=== PATIENT | male | born 1980 | race Two or more races ===

== ENCOUNTER 2020-05-15 05:04 | Emergency (ER) | payer OTHER, SELFPAY ==
--- NOTE | 2020-05-15 07:43 | PC.NURSE ---
DOCUMENTATION ON DOWNTIME CHART
== END 2020-05-15 05:35 | disposition home or self-care (01) ==
PROVIDERS: Emergency Provider Student in an Organized Health Care Education/Training Program
DX: R30.0 Dysuria (principal)
CPT/HCPCS: 99283

== ENCOUNTER 2021-06-09 08:52 | Outpatient (REF) | payer OTHER, SELFPAY ==
--- NOTE | ~2021-06-09 | XR_ITS ---
EXAMINATION: XR LUMBOSACRAL SPINE CLINICAL INFORMATION: Low back pain. COMPARISON: Radiographs of the lumbar spine dated from 09/17/2018. TECHNIQUE: Three views of the lumbosacral spine. FINDINGS: The vertebral bodies and posterior elements are normal. The disc spaces are preserved and the vertebral alignment is normal. The paraspinal soft tissues are normal. XR/XR lumbar spine 2-3V IMPRESSION: Normal lumbar spine radiographs.
[2021-06-09 09:43] LABS: Hematocrit 44.4 % (42.0-52.0); Hemoglobin 14.7 g/dl (14.0-18.0); Mean Corpuscular HGB Conc 33.1 g/dl (31.0-36.0); Mean Corpuscular Hemoglobin 31.2 pg (27.0-33.0); Mean Corpuscular Volume 94.3 fL (80.0-98.0); Mean Platelet Volume 9.4 fL (9.4-12.4); Platelet Count 195 X10*3/uL (160-400); Red Blood Count 4.71 X10*6/uL (4.60-5.80); Red Cell Distribution Width 13.3 % (11.0-16.0); White Blood Count 3.5 X10*3/uL (4.8-10.8)
[2021-06-09 09:52] LABS: Estimated Average Glucose 103 mg/dL; Hemoglobin A1c % 5.2 %
[2021-06-09 10:27] LABS: Alanine Aminotransferase 19 U/L (0-40); Alkaline Phosphatase 60 U/L (39-117); Anion Gap 10 (12-20); Aspartate Amino Transferase 22 U/L (5-37); Bilirubin Direct 0.6 mg/dL (0.0-0.5); Bilirubin Total 2.5 mg/dL (0.0-1.0); Blood Urea Nitrogen 13 mg/dL (9-16); Calcium 9.2 mg/dL (8.4-10.2); Carbon Dioxide 31 mmol/L (22-29); Chloride 102 mmol/L (96-108); Cholesterol 131 mg/dL; Estimated Glomerular Filt Rate > 60; Glucose Random 97 mg/dL (60-115); HDL Cholesterol 57 mg/dL; LDL Cholesterol Calculated 65 mg/dl; Sodium 139 mmol/L (135-145); Total Protein 6.7 g/dL (6.5-8.0); Triglycerides 48 mg/dL
[2021-06-09 10:29] LABS: ~HepC Num1 0.08 S/CO (0.00-0.79); ~Hepatitis C Antibody Nonreactive (Nonreactive)
[2021-06-09 10:32] LABS: HBS Num1 0.67 mIU/mL (0-7.99); HIV AB/AG Nonreactive (Nonreactive); HIV Num 1 0.09 S/CO (0.00-0.99); ~Hepatitis B Surface Antibody NONREACTIVE (Nonreactive)
[2021-06-09 10:44] LABS: Syphilis Screen Nonreactive (Nonreactive)
[2021-06-09 10:48] LABS: Free T4 (Free Thyroxine) 0.79 ng/dL (0.71-1.85); Thyroid Stimulating Hormone 1.02 uIU/mL (0.32-4.0)
[2021-06-09 11:42] LABS: CT PCR NOT DETECTED (Not Detect.); NG PCR NOT DETECTED (Not Detect.)
[2021-06-11 07:46] LABS: Hepatitis A Antibody IgG Nonreactive (Nonreactive); ~Hepatitis A Antibody IgG 0.24 S/CO (0.00-0.99)
== END 2021-06-09 08:53 | disposition home or self-care (01) ==
LOC: HO.LAB 08:52
PROVIDERS: PCP Family Medicine; Visit Provider Family Medicine
DX: Z00.00 Encounter for general adult medical examination without abnormal findings (principal); I77.810 Thoracic aortic ectasia; M54.50 Low back pain, unspecified
CPT/HCPCS: 72100; 80048; 80061; 80076; 82306; 83036; 84439; 84443; 85027; 86706; 86708; 86780; 86803; 87389; 87491; 87591

== ENCOUNTER 2021-06-16 12:57 | Outpatient (REF) | payer OTHER, SELFPAY | END 2021-06-16 12:58 | disposition home or self-care (01) | LOC: HO.LAB 12:57 | PROVIDERS: Visit Provider Internal Medicine | DX: Z13.89 Encounter for screening for other disorder (principal) ==

== ENCOUNTER 2021-06-17 11:00 | Outpatient (REF) | payer OTHER, SELFPAY ==
[2021-06-17 11:40] LABS: COVID-19 Test Positive (Negative)
== END 2021-06-17 11:01 | disposition home or self-care (01) ==
LOC: HO.LAB 11:00
PROVIDERS: Visit Provider Internal Medicine
DX: Z20.822 Contact with and (suspected) exposure to COVID-19 (principal)
CPT/HCPCS: 87635; C9803

== ENCOUNTER 2021-06-28 14:37 | Emergency (ER) | payer OTHER, SELFPAY ==
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
[2021-06-28 15:02] VITALS: BP 140/80; PULSE 86; O2SAT 98
[2021-06-28 15:26] VITALS: BP 144/86; PULSE 81; RESP 16; TEMP 37; O2SAT 97; BMI 20.5
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
== END 2021-06-28 17:17 | disposition home or self-care (01) ==
PROVIDERS: Emergency Provider Emergency Medicine
DX: S39.012A Strain of muscle, fascia and tendon of lower back, initial encounter (principal); S13.4XXA Sprain of ligaments of cervical spine, initial encounter; V47.5XXA Car driver injured in collision with fixed or stationary object in traffic accident, initial encounter; Y93.89 Activity, other specified; Y92.410 Unspecified street and highway as the place of occurrence of the external cause; Y99.9 Unspecified external cause status
CPT/HCPCS: 72100; 99283

== ENCOUNTER 2021-06-30 07:50 | Outpatient (REF) | payer OTHER, SELFPAY ==
--- NOTE | ~2021-06-30 | CT_ITS ---
EXAMINATION: CT ABDOMEN AND PELVIS WITH CONTRAST CLINICAL INFORMATION: Left lower quadrant pain COMPARISON: None TECHNIQUE: Multidetector volumetric images were obtained from the superior aspect of the liver through the pubic symphysis following administration 85 mL of Omnipaque 350 intravenous contrast. Sagittal and coronal reformatted images were obtained on the technologist's workstation. Oral contrast: Yes This CT examination was performed using dose optimization techniques as appropriate, variously including the following: *Automated exposure control *Adjustment of mA and/or kV according to patient size (this includes techniques or standardized protocols for targeted exams where dose is matched to indication/reason for exam; i.e. extremities or head) *Use of iterative reconstruction technique DLP: 281 mGy-cm FINDINGS: LUNG BASES: The visualized lung bases are unremarkable. LIVER, GALLBLADDER, AND BILIARY TREE: The liver is normal in size, shape, and attenuation. There is a small 3 mm low-attenuation lesion anterior segment of the right lobe of the liver, for example coronal reconstructed image 25 and sagittal reconstructed image 7. Difficult to characterize due to small size but may represent a cyst. No other focal hepatic lesion or biliary ductal dilatation is present. The gallbladder is unremarkable with no evidence of radiopaque gallstones, gallbladder wall thickening, or obvious pericholecystic inflammatory changes. PANCREAS: Unremarkable. SPLEEN: Unremarkable. ADRENAL GLANDS: Unremarkable. KIDNEYS AND URETERS: There are 2 low-attenuation lesions in the upper pole left kidney suggestive of cysts. The largest measures 1.4 cm. No imaging follow-up is needed. The kidneys are otherwise unremarkable. BLADDER: Unremarkable. GASTROINTESTINAL TRACT: There is stool throughout the colon questionable for constipation. The small and large bowel are otherwise unremarkable. The appendix is unremarkable. ABDOMINAL WALL: No significant hernia is appreciated. LYMPH NODES: Normal. VASCULAR: Unremarkable. PELVIC VISCERA: Unremarkable. OSSEOUS STRUCTURES: Unremarkable. CT/CT abdomen pelvis w con IMPRESSION: Left renal cysts. Stool throughout the colon questionable for constipation. Fleischner guidelines were followed.
[2021-06-30] MEDS: iohexoL 350 MG/ML 100 ML INFUS..BTL IV (10:45)
[2021-06-30] MEDS: Barium Sulfate Oral (Vanilla) 450 ML ORAL.SUSP 900 ML PO (10:52)
== END 2021-06-30 07:51 | disposition home or self-care (01) ==
LOC: HO.CT 07:50
PROVIDERS: Visit Provider Family Medicine
DX: R10.32 Left lower quadrant pain (principal)
CPT/HCPCS: 74177; Q9967

== ENCOUNTER → 2021-08-01 09:29 | Outpatient (REF) | payer OTHER, SELFPAY ==
--- NOTE | 2021-08-01 09:33 | CA_ITS ---
Transthoracic Echocardiogram Patient (Last, First, Middle): Dick Barraza O Gender: Male Date of : 1980 Age: 40 Procedure Date: 08/01/2021 Procedure Type: Transthoracic Echocardiogram Location: OP Height: 187.96 cm Weight: 72.58 kg BSA: 1.98 m2 Heart Rate: bpm BP: 132 / 80 mmHg Infrastructure Software Engineer: FRANCI Siu MD: Luz Maria Washburn DO Symptoms: I77.810 THORACIC AORTIC ECTASIA Study Quality: Good Conclusions: - Normal left ventricular size, thickness, and systolic function. The visually estimated ejection fraction is between 55-60%. Diastolic function is normal for age. - Normal right ventricular cavity size and systolic function. - There is mild dilatation of the sinuses of Valsalva measuring 3.90 cm. Findings Left Ventricle Normal left ventricular size, thickness, and systolic function. The visually estimated ejection fraction is between 55-60%. Diastolic function is normal for age. Right Ventricle Normal right ventricular cavity size and systolic function. Atria The left atrium is normal in size. Aortic Valve Normal aortic valve structure and function. There is no aortic valve stenosis. There is no aortic valve regurgitation. Mitral Valve Normal mitral valve structure and function. There is trace mitral valve regurgitation. There is no mitral valve stenosis. Pulmonic Valve The pulmonic valve is likely normal. Tricuspid Valve Normal tricuspid valve structure and function. There is trace tricuspid valve regurgitation. Mildly elevated right atrial pressure. There is no evidence of pulmonary hypertension. Great Vessels There is mild dilatation of the sinuses of Valsalva measuring 3.90 cm. The visualized portions of the pulmonary artery and branches are normal. Venous The inferior vena cava is dilated and collapses greater than 50% with inspiration. Pericardium/Pleural There is no evidence of pericardial effusion. Prior Study Comparison No prior study available for comparison. Measurements 2D Linear Measurements IVSd: 0.90 0.6-0.9/0.6-1.0 cm LVIDd: 4.93 3.9-5.3/4.2-5.9 cm LVIDd Index: 2.49 2.4-3.2/2.2-3.1 cm/m2 LVIDs: 3.03 2.0-3.6 cm LVPWd: 1.05 0.7-1.1 cm LA Diam: 3.40 2.7-3.8/3.0-4.0 cm LAIDs Index: 1.72 1.5-2.3 cm/m2 LV Mass: 213.78 67-162/88-224 g LV Mass Index: 107.97 43-95/49-115 g/m2 LVOT Diam: 2.40 3.0+(-)1.3 cm 2D Systolic Function EF 4C: 55.80 >55% EF 2C: 55.20 >55% EF BiP: 55.00 >55% Mitral Valve MV Pk E: 0.74 MV PK A: 0.45 MV Decel Time: 196.00 E/A: 1.70 E'Lateral: 12.30 E'Medial: 7.72 E/E' Med: 9.60 E/E' Lat: 6.00 PHT: 57.00 MVA PHT: 3.86 Decel Caribou: 3.78 Aortic Valve AoV Pk Thiago: 1.09 AoV Mn Thiago: 0.70 AoV VTI: 0.20 AoV Pk Grad: 5.00 Aov Mn Grad: 2.00 HERLINDA Cont.VTI: 4.18 LVOT LVOT Pk Thiago: 0.92 LVOT Mn Thiago: 0.64 LVOT VTI: 0.18 LVOT Pk Grad: 3.00 LVOT Mn Grad: 2.00 LVOT Diam: 2.40 LVOT Area: 4.52 Diastolic Function MV Pk E: 0.74 MV Pk A: 0.45 E/A: 1.70 E'Medial: 7.72 E/E' Med: 9.60 E' Laterial: 12.30 E/E' Lat: 6.00 Right Ventricle TAPSE (mm): 23.00 TVS' Thiago: 15.60 Tricuspid Valve TR Pk Thiago: 2.21 TR Pk Grad: 20.00 RA Press: 8.00 RVSP: 28.00 Great Vessels Aorta Sinus of Valsalva: 3.90 2.0-3.5 cm Ao Asc: 3.20 2.1-3.4 cm Ao Arch: 2.80 Ao Desc: 2.10 Updated in Other Vendor System with Status of Final Bryant Turcios MD electronically signed on 08/03/2021 12:23:57 PM with status of Final
== END ==
LOC: HO.CARD 09:29
PROVIDERS: Visit Provider Family Medicine
DX: I77.810 Thoracic aortic ectasia (principal)
CPT/HCPCS: 93306

== ENCOUNTER 2022-09-27 17:28 | Emergency (ER) | payer OTHER, SELFPAY ==
[2022-09-27 18:13] VITALS: BP 132/87; PULSE 78; RESP 18; TEMP 36.8; O2SAT 98; BMI 20.5
[2022-09-27 19:11] LABS: Influenza A PCR NEGATIVE (Negative); Influenza B PCR POSITIVE (Negative); Resp Syncy Virus RNA Qual PCR NEGATIVE (Negative); SARS COV2 PCR INHOUSE NEGATIVE (Negative)
--- NOTE | 2022-09-27 22:01 | ED.URI ---
HPI - URI/Sore Throat General Chief Complaint: Upper Respiratory Symptoms Stated Complaint: N/V/D Time Seen by Provider: 09/27/22 22:00 Source: patient Mode of arrival: ambulatory Limitations: no limitations History of Present Illness HPI Narrative: Patient been feeling weak tired body aches fever cough for last 4 days other family member positive with flu but patient still feeling tired cough is getting better no shortness of breath patient received flu shot Related Data Previous Rx's Medication Instructions Recorded cyclobenzaprine 10 mg tablet 10 mg PO BEDTIME PRN muscle spasm 06/28/21 #7 tabs ibuprofen 600 mg tablet 600 mg PO TID #30 tabs 06/28/21 ibuprofen 600 mg tablet 600 mg PO Q6H PRN fever or pain 09/27/22 #30 tabs Allergies Allergy/AdvReac Type Severity Reaction Status Date / Time penicillin G Allergy Unknown severe Verified 12/15/19 00:00 Penicillins [PENICILLINS] Allergy Unknown RASH Unverified 02/15/20 16:55 Review of Systems Review of Systems: Yes all other systems are reviewed and are negative [facility] Past Medical History Medical History Asthma Surgical History History of hernia surgery Social History Social History Advance Directives: No Advance Directives Information Provided: No Physical Exam Vital Signs: Vital Signs: Last Vital Signs Temp 98.3 F 09/27/22 18:13 Pulse 78 09/27/22 18:13 Resp 18 09/27/22 18:13 BP 132/87 09/27/22 18:13 Pulse Ox 98 09/27/22 18:13 O2 Del Method Room Air 09/27/22 18:13 BMI result Body Mass Index 20.5 Medical Decision Making Lab Data Labs: Lab Results 09/27/22 Range/Units 18:26 Influenza Type A (PCR) NEGATIVE (Negative) Influenza Type B (PCR) POSITIVE A (Negative) RSV RNA Qual (PCR) NEGATIVE (Negative) SARS-CoV-2 RNA (RT-PCR) NEGATIVE (Negative) Discharge Plan Discharge Clinical Impression: Influenza Patient Disposition: Home, Self-Care Instructions: Influenza (ED) Additional Instructions: Drink plenty of Ibuprofen for pain Social isolation until you get better Prescriptions: New ibuprofen 600 mg tablet 600 mg PO Q6H PRN (Reason: fever or pain) Qty: 30 0RF No Action ibuprofen 600 mg tablet 600 mg PO TID Qty: 30 0RF cyclobenzaprine 10 mg tablet 10 mg PO BEDTIME PRN (Reason: muscle spasm) Qty: 7 0RF Stand Alone Forms: Work/School Release
[2022-09-27] MEDS: Ibuprofen 600 MG TABLET PO (22:34)
[2022-09-27 22:35] VITALS: BP 128/78; PULSE 89; RESP 18; TEMP 36.6
== END 2022-09-27 22:39 | disposition home or self-care (01) ==
PROVIDERS: Emergency Provider Internal Medicine; PCP Family Medicine
DX: J10.1 Influenza due to other identified influenza virus with other respiratory manifestations (principal); Z20.822 Contact with and (suspected) exposure to COVID-19; Z20.828 Contact with and (suspected) exposure to other viral communicable diseases
CPT/HCPCS: 0241U; 99283; 99284

== ENCOUNTER 2023-03-22 12:07 | Outpatient (REF) | payer OTHER, SELFPAY ==
--- NOTE | ~2023-03-22 | XR_ITS ---
STUDY: Cervical, thoracic and lumbar spine INDICATION: Worsening chronic neck and back pain COMPARISON: 08/21/2014 TECHNIQUE: 3 view cervical spine, 2 view thoracic spine, three-view lumbar spine FINDINGS: Cervical spine: Normal alignment. Vertebral bodies and intervertebral discs are maintained in height. Odontoid is partially obscured but appears intact. No prevertebral soft tissue swelling. Posterior elements are aligned. Lung apices are clear and soft tissues are unremarkable. Thoracic spine: Vertebral bodies and intervertebral discs are maintained in height. Anterior metallic bar partially obscures T8 vertebral body on frontal view. Pedicles and visualized ribs are intact. No focal paravertebral soft tissue swelling seen. Visualized heart, mediastinum and lung muir are unremarkable. Lumbar spine: 5 lumbar type vertebral bodies are identified and are maintained in height. Minimal L4-L5 disc space narrowing otherwise disc spaces are preserved. Pedicles and SI joints within normal limits. Left hemipelvic phleboliths. XR/XR cervical spine 3V IMPRESSION: No acute bony pathology cervical, thoracic and lumbar spine.
--- NOTE | ~2023-03-22 | XR_ITS ---
STUDY: Cervical, thoracic and lumbar spine INDICATION: Worsening chronic neck and back pain COMPARISON: 08/21/2014 TECHNIQUE: 3 view cervical spine, 2 view thoracic spine, three-view lumbar spine FINDINGS: Cervical spine: Normal alignment. Vertebral bodies and intervertebral discs are maintained in height. Odontoid is partially obscured but appears intact. No prevertebral soft tissue swelling. Posterior elements are aligned. Lung apices are clear and soft tissues are unremarkable. Thoracic spine: Vertebral bodies and intervertebral discs are maintained in height. Anterior metallic bar partially obscures T8 vertebral body on frontal view. Pedicles and visualized ribs are intact. No focal paravertebral soft tissue swelling seen. Visualized heart, mediastinum and lung muir are unremarkable. Lumbar spine: 5 lumbar type vertebral bodies are identified and are maintained in height. Minimal L4-L5 disc space narrowing otherwise disc spaces are preserved. Pedicles and SI joints within normal limits. Left hemipelvic phleboliths. XR/XR lumbar spine 2-3V IMPRESSION: No acute bony pathology cervical, thoracic and lumbar spine.
--- NOTE | ~2023-03-22 | XR_ITS ---
STUDY: Cervical, thoracic and lumbar spine INDICATION: Worsening chronic neck and back pain COMPARISON: 08/21/2014 TECHNIQUE: 3 view cervical spine, 2 view thoracic spine, three-view lumbar spine FINDINGS: Cervical spine: Normal alignment. Vertebral bodies and intervertebral discs are maintained in height. Odontoid is partially obscured but appears intact. No prevertebral soft tissue swelling. Posterior elements are aligned. Lung apices are clear and soft tissues are unremarkable. Thoracic spine: Vertebral bodies and intervertebral discs are maintained in height. Anterior metallic bar partially obscures T8 vertebral body on frontal view. Pedicles and visualized ribs are intact. No focal paravertebral soft tissue swelling seen. Visualized heart, mediastinum and lung muir are unremarkable. Lumbar spine: 5 lumbar type vertebral bodies are identified and are maintained in height. Minimal L4-L5 disc space narrowing otherwise disc spaces are preserved. Pedicles and SI joints within normal limits. Left hemipelvic phleboliths. XR/XR thoracic spine 2V IMPRESSION: No acute bony pathology cervical, thoracic and lumbar spine.
[2023-03-25 16:30] LABS: H Pylori Breath Test Negative (Negative)
== END 2023-03-22 12:08 | disposition home or self-care (01) ==
LOC: HO.HHCX 12:07
PROVIDERS: Visit Provider Family Medicine
DX: Z11.2 Encounter for screening for other bacterial diseases (principal); R12 Heartburn; M54.2 Cervicalgia; M54.9 Dorsalgia, unspecified; G89.29 Other chronic pain
CPT/HCPCS: 72040; 72070; 72100; 83013

== ENCOUNTER 2023-03-24 08:49 | Outpatient (AMB) | payer OTHER, SELFPAY ==
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
[2023-03-24 08:58] VITALS: BP 137/63; PULSE 75; BMI 20.5
== END 2023-03-24 09:25 | disposition home or self-care (01) ==
PROVIDERS: PCP Family Medicine; Visit Provider Physician Assistant
DX: R10.32 Left lower quadrant pain (principal); K21.9 Gastro-esophageal reflux disease without esophagitis; K58.9 Irritable bowel syndrome, unspecified
CPT/HCPCS: 99203

== ENCOUNTER → 2023-03-24 08:49 | Outpatient (BNVA) | payer OTHER, SELFPAY | PROVIDERS: PCP Family Medicine; Visit Provider Physician Assistant ==

== ENCOUNTER 2023-04-13 10:23 | Outpatient (REF) | payer OTHER, SELFPAY ==
[2023-04-13 11:24] LABS: MANUAL DIFF FLAG NO
[2023-04-13 11:43] LABS: Estimated Average Glucose 108 mg/dL; Hemoglobin A1c % 5.4 % (<6.0)
[2023-04-13 11:51] LABS: Basophils Percent Auto 0.9 % (0-2); Eosinophils Absolute Auto 0.3 X10*3/uL (0.0-0.4); Eosinophils Percent Auto 5.7 % (0-4); Hematocrit 42.3 % (42.0-52.0); Hemoglobin 14.5 g/dl (14.0-18.0); Imm Gran Abs Auto 0.01 X10*3/uL (0.00-0.03); Imm Gran Pct Auto 0.2 % (0.0-0.4); Lymphocytes Absolute Auto 1.2 X10*3/uL (1.2-4.9); Lymphocytes Percent Auto 26.2 % (20-40); Mean Corpuscular HGB Conc 34.3 g/dl (31.0-36.0); Mean Corpuscular Hemoglobin 30.7 pg (27.0-33.0); Mean Corpuscular Volume 89.4 fL (80.0-98.0); Mean Platelet Volume 9.2 fL (9.4-12.4); Monocytes Absolute Auto 0.3 X10*3/uL (0.1-1.2); Neutrophils Absolute Auto 2.8 x10*3/uL (2.0-8.3); Platelet Count 216 X10*3/uL (160-400); Red Blood Count 4.73 X10*6/uL (4.60-5.80); Red Cell Distribution Width 12.4 % (11.0-16.0); White Blood Count 4.6 X10*3/uL (4.8-10.8)
[2023-04-13 12:24] LABS: Alanine Aminotransferase 13 U/L (0-40); Albumin Level 4.2 g/dL (3.5-5.0); Alkaline Phosphatase 60 U/L (39-117); Anion Gap 9 (12-20); Aspartate Amino Transferase 22 U/L (5-37); Bilirubin Direct 0.6 mg/dL (0.0-0.5); Bilirubin Total 1.6 mg/dL (0.0-1.0); Blood Urea Nitrogen 13 mg/dL (9-16); Calcium 9.2 mg/dL (8.4-10.2); Carbon Dioxide 33 mmol/L (22-29); Chloride 101 mmol/L (96-108); Cholesterol 144 mg/dL (<200); Estimated Glomerular Filt Rate > 60; Glucose Random 75 mg/dL (60-115); HDL Cholesterol 58 mg/dL (>40); LDL Cholesterol Calculated 79 mg/dL (<100); Potassium 3.9 mmol/L (3.3-5.1); Sodium 139 mmol/L (135-145); Triglycerides 36 mg/dL (<150)
[2023-04-13 12:33] LABS: Free T4 (Free Thyroxine) 0.85 ng/dL (0.71-1.85); Thyroid Stimulating Hormone 0.95 uIU/mL (0.32-4.0)
[2023-04-13 12:34] LABS: Syphilis Screen Nonreactive (Nonreactive)
[2023-04-13 12:36] LABS: HBS Num1 0.63 mIU/mL (0-7.99); HIV AB/AG Nonreactive (Nonreactive); HIV Num 1 0.06 S/CO (0.00-0.99); Hepatitis B Surface Antigen Negative (Negative); ~HepC Num1 0.07 S/CO (0.00-0.79); ~Hepatitis B Surface Antibody NONREACTIVE (Nonreactive); ~Hepatitis C Antibody Nonreactive (Nonreactive)
[2023-04-13 13:29] LABS: CT PCR NOT DETECTED (Not Detect.); NG PCR NOT DETECTED (Not Detect.)
[2023-04-14 17:43] LABS: HIV RNA PCR Qn Copies NOT DETECTED copies/mL (NOT DETECTED); HIV RNA PCR Qn Log Copies NOT DETECTED (NOT DETECTED)
== END 2023-04-13 10:24 | disposition home or self-care (01) ==
LOC: HO.HHCL 10:23
PROVIDERS: Visit Provider Family Medicine
DX: Z11.4 Encounter for screening for human immunodeficiency virus [HIV] (principal); R12 Heartburn; Z20.2 Contact with and (suspected) exposure to infections with a predominantly sexual mode of transmission; E55.9 Vitamin D deficiency, unspecified; J45.30 Mild persistent asthma, uncomplicated; G56.03 Carpal tunnel syndrome, bilateral upper limbs; I77.810 Thoracic aortic ectasia
CPT/HCPCS: 0353U; 80048; 80061; 80076; 82306; 83036; 84439; 84443; 85025; 86706; 86780; 86803; 87340; 87389; 87536

== ENCOUNTER 2023-04-15 14:10 | Outpatient (REF) | payer OTHER, SELFPAY ==
--- NOTE | ~2023-04-15 | CT_ITS ---
EXAMINATION: CT ABDOMEN AND PELVIS WITH CONTRAST CLINICAL INFORMATION: Left lower quadrant pain. COMPARISON: CT abdomen and pelvis 06/30/2021. TECHNIQUE: Multidetector volumetric images were obtained from the superior aspect of the liver through the pubic symphysis following administration 85 mL of Omnipaque 350 intravenous contrast. Sagittal and coronal reformatted images were obtained on the technologist's workstation. Oral contrast: No This CT examination was performed using dose optimization techniques as appropriate, variously including the following: *Automated exposure control *Adjustment of mA and/or kV according to patient size (this includes techniques or standardized protocols for targeted exams where dose is matched to indication/reason for exam; i.e. extremities or head) *Use of iterative reconstruction technique DLP: 292 mGy-cm FINDINGS: LUNG BASES: The visualized lung bases are unremarkable. LIVER, GALLBLADDER, AND BILIARY TREE: The liver is normal in size, shape, and attenuation. No focal hepatic lesion or biliary ductal dilatation is present. The gallbladder is unremarkable with no evidence of radiopaque gallstones, gallbladder wall thickening, or obvious pericholecystic inflammatory changes. PANCREAS: Unremarkable. SPLEEN: Unremarkable. ADRENAL GLANDS: Unremarkable. KIDNEYS AND URETERS: The kidneys are normal in size, shape, and attenuation. No hydronephrosis, hydroureter, or calculi seen. No perinephric stranding. Multiple left-sided benign Bosniak class I renal cysts are noted which require no additional imaging or followup. No solid renal masses are seen. BLADDER: Unremarkable. GASTROINTESTINAL TRACT: The small and large bowel are unremarkable. The appendix is not seen but there is no evidence of appendicitis. ABDOMINAL WALL: No significant hernia is appreciated. LYMPH NODES: No retroperitoneal lymphadenopathy. VASCULAR: Unremarkable. PELVIC VISCERA: Unremarkable. OSSEOUS STRUCTURES: Some minimal degenerative changes seen with some minimal narrowing at the L4-L5 disc space. CT/CT abdomen pelvis w IV con IMPRESSION: No significant abnormality is seen to account for the patient's left lower quadrant pain. There has been no interval change seen when compared to the 06/30/2021 study which was also performed for evaluation of left lower quadrant pain. Fleischner guidelines were followed.
[2023-04-15] MEDS: iohexoL 350 MG/ML 100 ML INFUS..BTL 85 ML IV (17:28)
[2023-04-15] MEDS: Barium Sulfate Oral (Berry) 450 ML ORAL.SUSP PO (17:41)
== END 2023-04-15 14:11 | disposition home or self-care (01) ==
LOC: HO.CT 14:10
PROVIDERS: PCP Family Medicine; Visit Provider General Practice
DX: R10.32 Left lower quadrant pain (principal)
CPT/HCPCS: 74177; Q9967

== ENCOUNTER 2023-04-20 00:59 | Emergency (ER) | payer OTHER, SELFPAY ==
[2023-04-20 01:10] VITALS: BP 129/80; PULSE 78; RESP 18; TEMP 36.3; O2SAT 98; BMI 20.5
--- NOTE | 2023-04-20 01:28 | PC.NURSE ---
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 Patient has Baclofen and Ibuprofen 600mg at home that he has been taking for the issue. Patient denies incontinence at this time.
--- NOTE | 2023-04-20 01:37 | ED_ITS ---
HPI - Back Pain/Injury General Chief Complaint: Back Pain/Injury Stated Complaint: Back pain Time Seen by Provider: 04/20/23 01:27 History of Present Illness HPI Narrative: Patient is a 42-year-old male presented with having back pain. The back pain is localized over the lower back. There is no bowel urinary incontinence. There is no focal weakness. No history of IV drug use in the past. The pain is localized. There is no radiation of the pain. Related Data Home Medications Medication Instructions Recorded Confirmed dicyclomine 10 mg capsule 10 mg PO QID 03/24/23 03/24/23 pantoprazole 20 mg tablet,delayed 20 mg PO DAILY 03/24/23 03/24/23 release Previous Rx's Medication Instructions Recorded cyclobenzaprine 10 mg tablet 10 mg PO BEDTIME PRN muscle spasm 06/28/21 #7 tabs ibuprofen 600 mg tablet 600 mg PO TID #30 tabs 06/28/21 ibuprofen 600 mg tablet 600 mg PO Q6H PRN fever or pain 09/27/22 #30 tabs pantoprazole 20 mg tablet,delayed 20 mg PO QAM #30 tabs 03/24/23 release ibuprofen 400 mg tablet 400 mg PO Q6H PRN pain #20 tabs 04/20/23 lidocaine 5 % topical patch 1 patch topical DAILY #15 ea 04/20/23 (Lidoderm) Allergies Allergy/AdvReac Type Severity Reaction Status Date / Time penicillin G Allergy Unknown severe Verified 04/20/23 01:09 Penicillins [PENICILLINS] Allergy Unknown RASH Verified 04/20/23 01:09 Review of Systems Review of Systems: Positive back pain Yes all other systems are reviewed and are negative PMFSH Past Medical History Attestation statement: The following information was validated with the patient. Medical History Asthma Surgical History History of hernia surgery Social History Social History Household Members: Family Alcohol intake: never Patient Tobacco Use Status: Former Tobacco user Smoked in Last 30 Days: No Use of substances other than those prescribed or required for medical reasons: No Advance Directives: No Advance Directives Information Provided: Yes Current occupational status: employed Physical Exam Vital Signs: Vital Signs: Last Vital Signs Temp 97.4 F 04/20/23 01:10 Pulse 78 04/20/23 01:10 Resp 18 04/20/23 01:10 BP 129/80 04/20/23 01:10 Pulse Ox 98 04/20/23 01:10 O2 Del Method Room Air 04/20/23 01:10 BMI result Body Mass Index 20.5 Appearance: Alert. Oriented X3. No acute distress. Eyes: Pupils equal, round and reactive to light. ENT: Pharynx normal. Neck: Normal inspection. Neck supple. No lymph nodes noted. No crepitus CVS: Normal heart rate and rhythm. Pulses normal. Normal S1 and S2 Respiratory: No respiratory distress. Breath sounds normal. No Wheezing. No rales Abdomen: Soft and nontender. No rigidity. No distention. good BS x4 examination of the back there is no spinal tenderness elicited on palpation. Positive paraspinal tenderness. There is no CVA tenderness. Sensation bilateral lower extremity intact. Ambulate with a normal gait. Reflex 2+ at patella bilateral Skin: Skin warm and dry. Normal skin color. Normal skin turgor. Extremities: No lower extremity edema. Neurovascular intact to all extremities. No Lacerations. No Rash Neuro: Oriented X 3. No motor deficit. No sensory deficit. Moving all extermities. No slurred speech Medical Decision Making Medical Decision Making MDM Narrative: patient has localized back pain. There is no bowel urinary incontinence. There is no focal weakness. Has no signs of cauda equina syndrome. No history of IV drug use history not consistent with having spinal abscess. Neurologically intact. There is no trauma. [place] the risk of fracture unlikely. Patient is young 42 years old. Will discharge patient home Differential Diagnosis Back pain, cauda equinus syndrome, mass, fracture Admission/Observation Consideration of admission/observation: Escalation of care including admission/observation considered pain is controlled no need for admission Prescription Management I considered prescription management with: Antiviral and Antibiotic Discharge Plan Discharge Clinical Impression: Strain of lumbar region Patient Disposition: Home, Self-Care Instructions: Back Pain (ED) Prescriptions: New ibuprofen 400 mg tablet 400 mg PO Q6H PRN (Reason: pain) Qty: 20 0RF lidocaine [Lidoderm] 5 % adhesive patch,medicated 1 patch topical DAILY Qty: 15 0RF Rx Instructions: leave on most painful area for up to 12 hrs No Action ibuprofen 600 mg tablet 600 mg PO TID Qty: 30 0RF cyclobenzaprine 10 mg tablet 10 mg PO BEDTIME PRN (Reason: muscle spasm) Qty: 7 0RF ibuprofen 600 mg tablet 600 mg PO Q6H PRN (Reason: fever or pain) Qty: 30 0RF pantoprazole 20 mg tablet,delayed release (DR/EC) 20 mg PO QAM Qty: 30 6RF pantoprazole 20 mg tablet,delayed release (DR/EC) 20 mg PO DAILY dicyclomine 10 mg capsule 10 mg PO QID Referrals: Luz Maria Washburn DO [Primary Care Provider] - 04/22/23 Stand Alone Forms: Work/School Release
[2023-04-20] MEDS: Ibuprofen 400 MG TABLET PO (01:44)
== END 2023-04-20 01:54 | disposition home or self-care (01) ==
PROVIDERS: Emergency Provider Emergency Medicine Emergency Medical Services; PCP Family Medicine
DX: S39.012A Strain of muscle, fascia and tendon of lower back, initial encounter (principal); X58.XXXA Exposure to other specified factors, initial encounter; Y93.9 Activity, unspecified; Y92.9 Unspecified place or not applicable; Y99.9 Unspecified external cause status; Z79.899 Other long term (current) drug therapy
CPT/HCPCS: 99283; 99284

== ENCOUNTER 2023-04-30 15:08 | Outpatient (REF) | payer OTHER, SELFPAY ==
--- NOTE | 2023-04-30 15:13 | EMG_ITS ---
Chief complaint: Worsening hand pain and numbness, right worse than left Reason for referral: Evaluate for Carpal Tunnel Syndrome Referred by: Dr. Washburn Procedure done: Bilateral upper extremities NCS Precautions and/or limitations: needle phobia - almost passed out on the last EMG testing 2 years ago The limb temperature was monitored continuously and remained between 32-36 degrees C during the performance of the NCS. Nerve Conduction Studies Anti Sensory Summary Table ?Stim Site NR Onset (ms) Norm Onset (ms) Peak (ms) Norm Peak (ms) O-P Amp (?V) Norm O-P Amp Site1 Site2 Delta-0 (ms) Dist (cm) Thiago (m/s) Norm Thiago (m/s) Left Median Anti Sensory (2nd Digit) Wrist ? 2.8 3.5 <3.6 25.7 >10 Wrist 2nd Digit 2.8 14.0 50 Right Median Anti Sensory (2nd Digit) Wrist ? 2.9 3.8 <3.6 7.6 >10 Wrist 2nd Digit 2.9 14.0 48 Right Radial Anti Sensory (Thumb) Forearm ? 1.7 2.4 <3.1 25.7 Forearm Thumb 1.7 0.0 Left Ulnar Anti Sensory (5th Digit) Wrist ? 2.6 3.4 <3.7 18.5 >15.0 Wrist 5th Digit 2.6 14.0 54 Right Ulnar Anti Sensory (5th Digit) Wrist ? 2.6 3.4 <3.7 16.7 >15.0 Wrist 5th Digit 2.6 14.0 54 Motor Summary Table ?Stim Site NR Onset (ms) Norm Onset (ms) O-P Amp (mV) Norm O-P Amp iAmp (mV) Amp (1st) (%) Site1 Site2 Delta-0 (ms) Dist (cm) Thiago (m/s) Norm Thiago (m/s) Left Median Motor (Abd Poll Brev) Wrist ? 3.9 <3.9 6.6 >4.5 8.4 100.0 Elbow Wrist 5.1 26.0 51 >45 Elbow ? 9.0 5.9 7.7 89.4 Right Median Motor (Abd Poll Brev) Wrist ? 4.1 <3.9 9.7 >4.5 11.4 100.0 Elbow Wrist 5.4 27.0 50 >45 Elbow ? 9.5 9.0 10.8 92.8 Left Ulnar Motor (Abd Dig Minimi) Wrist ? 2.9 <3.0 5.0 >5 6.4 100.0 B Elbow Wrist 4.0 23.0 58 >45 B Elbow ? 6.9 5.5 7.5 110.0 A Elbow B Elbow 2.2 10.0 45 >45 A Elbow ? 9.1 6.2 8.3 124.0 Right Ulnar Motor (Abd Dig Minimi) Wrist ? 2.3 <3.0 9.2 >5 11.0 100.0 B Elbow Wrist 5.3 25.0 47 >45 B Elbow ? 7.6 8.3 9.9 90.2 A Elbow B Elbow 1.6 10.0 63 >45 A Elbow ? 9.2 8.8 10.5 95.7 FINDINGS: Right median motor nerve showed prolonged distal latency, normal amplitude and normal conduction velocity. Right median sensory nerve showed prolonged peak latency. All other nerves tested were within normal. Needle EMG deferred. IMPRESSION: 1. This is an abnormal study. 2. There is electrodiagnostic evidence for right moderate-severe median neuropathy at the wrist, consistent with carpal tunnel syndrome. 3. There is no electrodiagnostic evidence for ulnar neuropathy. 4. There is no electrodiagnostic evidence for left median neuropathy. Thank you for your kind referral. Lupis Phoenix MD, YASSINE Board Certified, [place] [employer] and [employer] (ABPMR) Board Certified, [place] [employer] Electrodiagnostic [employer] (ABEM) CODIN MTDD
== END 2023-04-30 15:09 | disposition home or self-care (01) ==
LOC: HO.NEURO 15:08
PROVIDERS: PCP Family Medicine; Visit Provider Family Medicine
DX: G56.03 Carpal tunnel syndrome, bilateral upper limbs (principal)
CPT/HCPCS: 95911

== ENCOUNTER → 2023-04-30 15:13 | Outpatient (BNV) | payer OTHER, SELFPAY | PROVIDERS: PCP Family Medicine; Visit Provider Physical Medicine & Rehabilitation | DX: G56.11 Other lesions of median nerve, right upper limb (principal); G56.01 Carpal tunnel syndrome, right upper limb | CPT/HCPCS: 95911 ==

== ENCOUNTER 2023-05-05 15:02 | Outpatient (AMB) | payer OTHER, SELFPAY ==
--- NOTE | 2023-05-05 15:04 | A.OFFVIS_ITS ---
Intake Vital Signs 05/05/23 15:05 Height 6 ft 2 in Weight 160 lb BMI 20.5 BP 96/62 Blood Pressure Location Lt brachial Position Sitting Pulse 84 Intake Visit Reasons: 6 week follow up Intake Note: Patient 6 weeks follow up for acid reflex. Patient cc: abdominal bloating, constipation on and off with bloody BM, and swallowing problems after eating. Legal Job Titles Required: No Accompanied by: Self / Same As Patient Allergies penicillin G Allergy (Unknown, Verified 05/05/23 15:03) severe Penicillins [PENICILLINS] Allergy (Unknown, Verified 05/05/23 15:03) RASH Medication List - Last Reconciled 05/05/23 by Yuly Cooper PA-C cyclobenzaprine 10 mg PO BEDTIME PRN ibuprofen 600 mg PO TID ibuprofen 600 mg PO Q6H PRN ibuprofen 400 mg PO Q6H PRN lidocaine 5% (Lidoderm) 1 patch topical DAILY pantoprazole 20 mg PO DAILY pantoprazole 20 mg PO QAM HPI HPI Comments History of Present Illness Details 42-year-old male follows up with persist ent acid reflux- pantoprazole with good -he has made dietary modifications with good response Trial of dicyclomine- no further abdominal pain Concerned about stool and cleanliness- after cleaning his healing stool, feels some irritation within colon however somewhat difficult to explain, He says he does not have hemorrhoids. He has extreme he anxious about what the underlying Cause may be. he has no nausea, vomiting, hematemesis, hematochezia fever chills PFSH Medical History Asthma Surgical History History of hernia surgery Social History Household Members: Family Alcohol intake: never Patient Tobacco Use Status: Former Tobacco user Current occupational status: employed Review of Systems Const All systems reviewed & are unremarkable except as noted in HPI and below ENT Denies dysphagia Card Denies chest pain and Denies dyspnea Resp Denies dyspnea GI Denies abdominal pain, Denies hematochezia, Reports change in stool character, Denies dysphagia, Denies heartburn, Denies nausea and Denies vomiting Psych Reports anxiety Physical Exam Vital Signs: Last Vital Signs Pulse 84 05/05/23 15:05 BP 96/62 05/05/23 15:05 BMI result Body Mass Index 20.5 Const General: cooperative, healthy appearing, comfortable, no acute distress and anxious Orientation/consciousness: patient oriented x3 Limitations: language barrier Eyes Sclerae: sclerae normal Resp Effort & Inspection: normal respiratory effort and able to speak in complete sentences Skin General skin exam: no rashes or lesions noted Neuro General: patient oriented x3 Extrem General: Yes full ROM Psych Appearance: grossly normal and well kempt Mental Status: mental status grossly normal Speech and movement: Normal speech and movement present and Clear speech present Affect: Anxious affect present Attitude: cooperative Thought process: Normal thought process present Thought content: Normal thought content present Assessment & Plan Assessment & Plan (1) IBS (irritable bowel syndrome): Comment: Anxiety, Code(s): K58.9 - Irritable bowel syndrome without diarrhea Plan: Reassured (2) Acid reflux: Code(s): K21.9 - Gastro-esophageal reflux disease without esophagitis Plan: Dietary modifications, ppi asymptomatic Will reassess (3) Change in bowel function: Comment: Anxiety, symptoms vague, stool changes consistentcy May likely be hemorrhoids, he does not want any further evaluation at this time Spent 10 minutes discussing colonoscopy-a indication -rare risks Code(s): R19.8 - Other specified symptoms and signs involving the digestive system and abdomen Plan: Diagnostic colonoscopy, may be low yield Plan colonoscopy mg prep Orders: Orders EGD/[place] [facility] - GI Use Only 05/05/23 K21.9 - Gastro-esophageal reflux disease without esophagitis, R10.32 - Left lower quadrant pain Medications: New bisacodyl (Dulcolax (bisacodyl)) Day before procedure, prep day Take 4 tablets by mouth upon awakening followed by large glass of water 20 mg (4 x 5 mg) PO ONCE 1 day 4 tabs 0RF colonoscopy prep Z12.11 - Encounter for screening for malignant neoplasm of colon polyethylene glycol 3350 (Miralax) Take as directed by mouth the day before your procedure. 238 grams PO ONCE 1 day PRN 238 grams 0RF laxative effect Patient Instructions: Very pleasant, anxious 42-year-old male with stool leakage- colonoscopy for further eval-indications, rare risks, need for escorted due to anesthesia MiraLax Gatorade prep, reviewed literature given Reassured Encouraged to call with questions or concerns Coding Level of Care Code Est Pt Level 3 (04185) Diagnoses IBS (irritable bowel syndrome) K58.9 Acid reflux K21.9 Change in bowel function R19.8 Time Spent (min) 25
[2023-05-05 15:05] VITALS: BP 96/62; PULSE 84; BMI 20.5
== END 2023-05-05 16:13 | disposition home or self-care (01) ==
PROVIDERS: PCP Family Medicine; Visit Provider Physician Assistant
DX: K58.9 Irritable bowel syndrome, unspecified (principal); K21.9 Gastro-esophageal reflux disease without esophagitis; R19.8 Other specified symptoms and signs involving the digestive system and abdomen
CPT/HCPCS: 99213

== ENCOUNTER → 2023-05-05 15:02 | Outpatient (BNVA) | payer OTHER, SELFPAY | PROVIDERS: PCP Family Medicine; Visit Provider Physician Assistant | DX: K58.9 Irritable bowel syndrome, unspecified (principal); K21.9 Gastro-esophageal reflux disease without esophagitis; R19.8 Other specified symptoms and signs involving the digestive system and abdomen | CPT/HCPCS: 99212 ==

== ENCOUNTER 2023-05-18 15:29 | Outpatient (AMB) | payer OTHER, SELFPAY ==
[2023-05-18 15:30] VITALS: BMI 20.5
--- NOTE | 2023-05-18 15:30 | A.OFFVIS_ITS ---
Intake Vital Signs 05/18/23 15:30 Height 6 ft 2 in Weight 160 lb BMI 20.5 Intake Visit Reasons: [employer] VV Intake Note: [employer] VV for bilateral LE VV, both legs are equal, he has itching, burning and restless legs at night. He works on his feet all day and has not tried compression socks. Started worsening about 1 yr ago. Accompanied by: Self / Same As Patient Allergies penicillin G Allergy (Unknown, Verified 05/18/23 15:45) severe Penicillins [PENICILLINS] Allergy (Unknown, Verified 05/18/23 15:45) RASH HPI [employer] PIL[employer] VV HPI Details very pleasant 42-year-old gentleman patient presents for painful varicose veins. Complaints include pain over varicosities, swelling of lower extremities, cramping, fatigue, and heaviness of the lower extremities. in addition notes he has restless leg syndrome.It has been affecting there daily activities including working in [employer] in an ambulatory job. It is noted more so in left leg. Patient denies any previous venous surgery or injections. Patient denies any history of DVT/ PE. Patient denies any history of phlebitis. Trial of compression includes - [id number] They now present for vascular evaluation regarding their varicose veins. [facility] Medical History Asthma Surgical History History of hernia surgery Social History (Updated 05/18/23 @ 15:46 by ROSHAN Hannah) Household Members: Family Alcohol intake: never Patient Tobacco Use Status: Former Tobacco user Quit Date: 2018 Current occupational status: employed Review of Systems Const Reports as per HPI ENT Reports no additional complaints Card Denies chest pain, Denies chest pain at rest and Denies chest pain with activity Resp Denies chest congestion and Denies cough GI Reports no additional complaints Musc Details: pain over varicosities, aching of lower extremities, swelling, cramping, heaviness and tiredness, itching Denies abnormal gait Skin/Breast Reports pruritus and Denies wounds Neuro Reports no additional complaints and Denies abnormal gait Psych Denies no additional complaints Physical Exam Vital Signs: BMI result Body Mass Index 20.5 Const General: cooperative, healthy appearing and comfortable Orientation/consciousness: oriented to person, oriented to place and oriented to time Neck Carotids: no bruits Chest Chest palpation & inspection: normal inspection of the chest and normal palpation of entire chest wall Resp Effort & Inspection: normal respiratory effort and able to speak in complete sentences Cardio Rate: regular rate Heart sounds: S1 normal heart sound present and S2 normal heart sound present Peripheral pulses: Peripheral pulses 2+ throughout GI Inspection: Yes normal to inspection Skin Other: +2 edema, large rope-like varicosities greater than 4 mm left posterior knee CEAP Classification C4 - skin color changes Ep - Etiology Primary As - superficial veins P - reflux General skin exam: dry skin Neuro General: oriented to person, oriented to place and oriented to time Extrem Right lower extremity: full ROM, normal capillary refill and edema Left lower extremity: full ROM, normal capillary refill and edema Psych Mental Status: mental status grossly normal Assessment & Plan Assessment & Plan (1) Varicose veins of left lower extremity with inflammation: Code(s): I83.12 - Varicose veins of left lower extremity with inflammation Plan: In short, the patient has evidence of venous insufficiency. I have discussed the pathophysiology with the patient. In addition I have provided informational material regarding venous disease to the patient. We have discussed conservative measures including compression, elevation, and exercise. I have also provided a handout regarding appropriate use of compression stockings and where to purchase good compression stockings as well. I have taken the liberty of ordering venous insufficiency testing with the patient. They will follow up with me after testing. The patient had an opportunity to ask questions regarding the treatment plan. All questions were answered. Imaging studies, laboratory studies and physical exam results were discussed and reviewed in detail. No major barriers to understanding were identified. The patient expressed understanding and agreement with the above treatment plan. The patient is aware they should contact our office by phone for worsening of the current condition or the appearance of new symptoms. Thank you for allowing me to participate in the vascular care of this patient. If you have any questions or concerns regarding the treatment for the above condition please do not hesitate to contact me. The office telephone contact is [phone]. This note is constructed using voice recognition software. While every effort has been made to ensure accuracy, grooming assistant errors may have been i ncluded. Thank you for allowing me to participate in the care of your patient. Yours sincerely, León Ricardo MD, FACS, R.P.V.I. (2) Restless leg syndrome: Code(s): G25.81 - Restless legs syndrome Plan: in short patient does have an element of restless leg syndrome. I do believe this may be more neurogenic in nature do hit to his back issues. Will assess his venous system to rule that out. He will follow up with us after testing. Orders: Orders US venous duplex LE BI 1 Week I83.12 - Varicose veins of left lower extremity with inflammation Coding Level of Care Code New Pt Level 4 (43086) Diagnoses Varicose veins of left lower extremity with inflammation I83.12 Restless leg syndrome G25.81
== END 2023-05-18 16:02 | disposition home or self-care (01) ==
PROVIDERS: PCP Family Medicine; Visit Provider Surgery Vascular Surgery
DX: I83.12 Varicose veins of left lower extremity with inflammation (principal); G25.81 Restless legs syndrome
CPT/HCPCS: 99203

== ENCOUNTER → 2023-05-18 15:29 | Outpatient (BNVA) | payer OTHER, SELFPAY | PROVIDERS: PCP Family Medicine; Visit Provider Surgery Vascular Surgery | DX: I83.12 Varicose veins of left lower extremity with inflammation (principal); G25.81 Restless legs syndrome | CPT/HCPCS: 99202 ==

== ENCOUNTER 2023-06-02 14:06 | Outpatient (AMB) | payer OTHER, SELFPAY ==
--- NOTE | 2023-06-02 14:11 | MHC.OFFVIS ---
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 States his right is worse than his left. Reports symptoms started about 3-4 yrs ago and has worsen. EMG done with Dr Gomes. Patient would like to discuss surgical intervention. Also states he has bilateral pain and weakness in his thumbs. Left worse than is right. Hx of O.A. 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 He was able to speak Setswana during his appointment today, but [employer] was helping to translate for him. He works in [employer] where he is constantly unloading and moving box after box after box sometimes 40-60 lb. He says he has the only 1 doing this typically and in the last 6 months he has really felt over worked. He started developing the spasms in his around his thumbs that cause flexion at the CMC joint, neutral position at the MCP joint with extension at the IP joint of the thumbs bilaterally. He says this can be painful, and happens often when he is trying to move all of these boxes. It sounds like he put in his 2 week notice at work, as he is also having increasing problems with back pain. When I talked to him about numbness in his right hand, he says that he only gets numbness in his right hand perhaps once a week. He says he does not have numbness and tingling that wakes him up at night and is not something that occurs anywhere near every day. He got a little frustrated because he did not understand why kept talking about this when he want to talk about the pain and spasms in his thumbs. 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 Review of Systems Const All systems reviewed & are unremarkable except as noted in HPI and below Physical Exam Vital Signs: BMI result Body Mass Index 20.5 Const General: cooperative, healthy appearing and no acute distress Orientation/consciousness: patient oriented x3 HEENT Head: Yes normocephalic and Yes atraumatic Eyes EOM: EOMs intact bilaterally Resp Effort & Inspection: normal respiratory effort and able to speak in complete sentences Cardio Jugular venous distension: no JVD Skin General skin exam: turgor normal Rashes: no rashes Neuro General: patient oriented x3 Extrem Other: Evaluation of Bilateral Upper Extremity: The patient is alert, oriented, and in no acute distress Neuro: Median, Ulnar, Radial nerves motor and sensory intact and sensation is normal to the tips of all digits No thenar or intrinsic wasting Good APB muscle belly firing and good finger cross Vascular: Cap refill brisk ROM: He Can make a fist and extend all of his digits and has no locking or catching. He also has no locking or catching in the right thumb with no tenderness over the A1 john. He is not particularly tender about the thumb including the IP MCP CMC joints and the 1st dorsal compartment. The IP and MCP joints are both stable on exam and not painful when tested. The flexor and extensor tendons about the thumb appear to be working well bilaterally with no subluxation of the tendons that could be causing this position of the thumb with cm see flexion and relatively neutral or extended position of the MCP and IP joints. Therefore, I think it is most likely that this is a muscle spasm problem in both hands. I asked the patient if he had had muscle spasms before his legs or other areas any says yes and he says this does feel something like that. Skin: No lacerations or abrasions. General: No swelling or Ecchymosis. No Erythema or evidence of infection. Nerve Conduction Study: IMPRESSION: 1. This is an abnormal study. 2. There is electrodiagnostic evidence for right moderate-severe median neuropathy at the wrist, consistent with carpal tunnel syndrome. 3. There is no electrodiagnostic evidence for ulnar neuropathy. 4. There is no electrodiagnostic evidence for left median neuropathy. Thank you for your kind referral. Lupis Phoenix MD, YASSINE 04/30/23 Psych Appearance: grossly normal Affect: normal affect Attitude: cooperative Assessment & Plan Assessment & Plan (1) Carpal tunnel syndrome of right wrist: Code(s): G56.01 - Carpal tunnel syndrome, right upper limb (2) Spasms of the hands or feet: Code(s): R25.2 - Cramp and spasm (3) Cramping of hands: Code(s): R25.2 - Cramp and spasm Plan Assessment & Plan: 1. Bilateral hand spasms & cramping Primarily in the thumbs, particularly with grasping or heavy lifting. This is his chief complaint today Demonstrates thumb held in CMC flexion, MCP neutral and IP extension I educated him about this condition No operative intervention indicated at this time I recommend activity modification. It sounds like he developed this problem after the intensity of his work increased where he is the primary person receiving in coming shift meant and having to unload multiple boxes each day. He will follow up prn 2. Right Carpal tunnel syndrome, moderate-severe Symptoms intermittent & occasional, worse at night I educated him about this condition I discussed operative and non-operative treatment options The patient says that he does not have problems with numbness. He reports feeling numbness perhaps once weekly, and says this is tolerable I discussed the risks of delaying treatment and explained that if his symptoms begin to increase in frequency or severity he should follow up to discuss possible surgical intervention He expressed understanding Scribed for Loretta Blanchard MD by Sunny Davila, certified medical assistant, on 06/02/23 at 2:35 PM, EST. Coding Level of Care Code New Pt Level 4 (08078) Diagnoses Carpal tunnel syndrome of right wrist G56.01 Spasms of the hands or feet R25.2 Cramping of hands R25.2
[2023-06-02 14:15] VITALS: BMI 20.5
== END 2023-06-02 14:47 | disposition home or self-care (01) ==
PROVIDERS: PCP Family Medicine; Visit Provider Orthopaedic Surgery
DX: G56.01 Carpal tunnel syndrome, right upper limb (principal); R25.2 Cramp and spasm
CPT/HCPCS: 99204

== ENCOUNTER → 2023-06-02 14:06 | Outpatient (BNVA) | payer OTHER, SELFPAY | PROVIDERS: PCP Family Medicine; Visit Provider Orthopaedic Surgery | DX: G56.01 Carpal tunnel syndrome, right upper limb (principal); R25.2 Cramp and spasm | CPT/HCPCS: 99202 ==

== ENCOUNTER 2023-06-04 09:56 | Outpatient (REF) | payer OTHER, SELFPAY | END 2023-06-04 09:57 | disposition home or self-care (01) | LOC: HO.US 09:56 | PROVIDERS: PCP Family Medicine; Visit Provider Surgery Vascular Surgery | DX: I83.12 Varicose veins of left lower extremity with inflammation (principal) | CPT/HCPCS: 93970 ==

== ENCOUNTER 2023-06-24 11:11 | Outpatient (AMB) | payer OTHER, SELFPAY ==
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
[2023-06-24 11:14] VITALS: BMI 20.5
== END 2023-06-24 11:49 | disposition home or self-care (01) ==
PROVIDERS: PCP Family Medicine; Visit Provider Surgery Vascular Surgery
DX: I72.4 Aneurysm of artery of lower extremity (principal)
CPT/HCPCS: 99214

== ENCOUNTER → 2023-06-24 11:11 | Outpatient (BNVA) | payer OTHER, SELFPAY | PROVIDERS: PCP Family Medicine; Visit Provider Surgery Vascular Surgery | DX: I72.4 Aneurysm of artery of lower extremity (principal) | CPT/HCPCS: 99212 ==

== ENCOUNTER 2023-07-29 15:02 | Outpatient (REF) | payer OTHER, SELFPAY ==
--- NOTE | ~2023-07-29 | CT_ITS ---
EXAMINATION: CTA ABDOMEN, PELVIS AND LOWER EXTREMITY RUN-OFF WITH CONTRAST Toni Arriaza M.D. HISTORY: Aneurysm of artery lower extremity. DESCRIPTION: Routine abdominal aorta and lower extremity run-off CTA protocol with contrast was performed. 100 mL of Omnipaque 350 was administered. The images were reviewed and postprocessed on a dedicated 3-D workstation. COMPARISON: CT abdomen and pelvis 04/15/2023. FINDINGS: VASCULAR: 1. Mesenteric Arteries: The celiac axis, superior mesenteric artery and inferior mesenteric artery are patent. 2. Renal Arteries: Due to the motion artifact, the distal aspects of the renal arteries could not be interrogated. The single renal arteries bilaterally appear to be patent proximally. 3. Infrarenal Abdominal Aorta: Normal caliber, no dissection. 4. Right Lower Extremity Arterial Perfusion: The common iliac artery, hypogastric artery, external iliac artery and common femoral arteries are widely patent. The profunda femoral artery, SFA and popliteal arteries are widely patent. Below the knee, 3 vessel run-off to the foot. 5. Left Lower Extremity Arterial Perfusion: The common iliac artery, hypogastric artery, external iliac artery and common femoral arteries are widely patent. The profunda femoral artery, SFA and popliteal arteries are widely patent. Below the knee, 3 vessel run-off to the foot. NONVASCULAR: Lung Bases: Atelectasis in both lung bases. Liver, Gallbladder and Biliary Tree: The liver is normal in size, shape, and attenuation. No focal hepatic lesion or biliary ductal dilatation is present. Subcentimeter hypodensity in the right lobe of the liver, too small to characterize, but statistically likely represents a small cyst. The gallbladder is unremarkable with no evidence of radiopaque gallstones, gallbladder wall thickening, or obvious pericholecystic inflammatory changes. Pancreas: Unremarkable. Spleen: Unremarkable. Adrenal Glands: Unremarkable. Kidneys and Ureters: The kidneys are normal in size, shape, and attenuation. No hydronephrosis, hydroureter, or calculi seen. No perinephric stranding. Left-sided renal cysts that do not require imaging follow-up. Bladder: Unremarkable. Gastrointestinal Tract: The small and large bowel are unremarkable. The appendix is unremarkable. Abdominal Wall: No significant hernia is appreciated. Lymph Nodes: Normal. Pelvic Viscera: Unremarkable. Osseous Structures: Unremarkable. CT/CT angio abd aorta runoff IMPRESSION: Unremarkable CTA of the abdomen and pelvis with bilateral lower extremity run-off to the feet.
[2023-07-29] MEDS: iohexoL 350 MG/ML 100 ML INFUS..BTL IV (15:43)
== END 2023-07-29 15:03 | disposition home or self-care (01) ==
LOC: HO.CT 15:02
PROVIDERS: PCP Family Medicine; Visit Provider Surgery Vascular Surgery
DX: I72.4 Aneurysm of artery of lower extremity (principal)
CPT/HCPCS: 75635; Q9967

== ENCOUNTER 2023-08-24 13:00 | Outpatient (AMB) | payer OTHER, SELFPAY ==
--- NOTE | 2023-08-24 13:04 | A.OFFVIS_ITS ---
Intake Vital Signs 08/24/23 13:05 08/24/23 13:09 Height 6 ft 2 in 6 ft 2 in Weight 160 lb 160 lb BMI 20.5 20.5 Intake Visit Reasons: Follow Up CTA w/runoff femoral aneurysm Intake Note: follow up CTA w/ runoff 07/29/23 s/p US 06/04/23 for bilateral LE VV w/ itching,burning & restlessness at night, works on feet all day. Pt states bilateral LE restlessness and itching. States he has large rope like VV. Accompanied by: Self / Same As Patient Allergies penicillin G Allergy (Unknown, Verified 08/24/23 13:12) severe Penicillins [PENICILLINS] Allergy (Unknown, Verified 08/24/23 13:12) RASH HPI Follow Up CTA w/runoff femoral aneurysm HPI Details Very pleasant 42-year-old gentleman presents for follow-up regarding v enous insufficiency. He originally had undergone venous insufficiency testing. Appeared at the time of testing there was concern about a cyst in the left popliteal fossa. He underwent CT angiogram and now presents for follow-up. 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 Review of Systems Const Reports as per HPI ENT Reports no additional complaints Card Denies chest pain, Denies chest pain at rest and Denies chest pain with activity Resp Denies chest congestion and Denies cough GI Reports no additional complaints Musc Details: pain over varicosities, aching of lower extremities, swelling, cramping, heaviness and tiredness, itching Denies abnormal gait Skin/Breast Reports pruritus and Denies wounds Neuro Reports no additional complaints and Denies abnormal gait Psych Denies no additional complaints Physical Exam Vital Signs: BMI result Body Mass Index 20.5 Const General: cooperative, healthy appearing and comfortable Orientation/consciousness: oriented to person, oriented to place and oriented to time Neck Carotids: no bruits Chest Chest palpation & inspection: normal inspection of the chest and normal palpation of entire chest wall Resp Effort & Inspection: normal respiratory effort and able to speak in complete sentences Cardio Rate: regular rate Heart sounds: S1 normal heart sound present and S2 normal heart sound present Peripheral pulses: Peripheral pulses 2+ throughout GI Inspection: Yes normal to inspection Skin Other: +2 edema, large rope-like varicosities greater than 4 mm CEAP Classification C4 - skin color changes Ep - Etiology Primary As - superficial veins P - reflux General skin exam: dry skin Neuro General: oriented to person, oriented to place and oriented to time Extrem Right lower extremity: full ROM, normal capillary refill and edema Left lower extremity: full ROM, normal capillary refill and edema Psych Mental Status: mental status grossly normal Results Reviewed Results Reviewed: CT angiogram dated 07/29/2023 demonstrates bilateral normal runoff. No significant findings in the left popliteal fossa. Written report and images were reviewed Assessment & Plan Assessment & Plan (1) Varicose veins of left lower extremity with inflammation: Code(s): I83.12 - Varicose veins of left lower extremity with inflammation Plan: In short patient has CT angiogram was within normal limits. Does have some varicosities in bilateral posterior calfs left more so than right. He would like them treated. I do believe he also has an element of restless leg syndrome. I do not think that treating his veins will be helpful for this. At the current time he has started new job and would like to hold off on treatment at the current time. We did discuss routine conservative measures including compression elevation and exercise. Will be compliant with those and Vishnu assess with us in approximately 6 months time. Thank you for allowing us to assist in his care. If there are any questions or concerns please do not hesitate to contact us. Coding Level of Care Code Est Pt Level 4 (67026) Diagnoses Varicose veins of left lower extremity with inflammation I83.12
[2023-08-24 13:05] VITALS: BMI 20.5
[2023-08-24 13:09] VITALS: BMI 20.5
== END 2023-08-24 13:26 | disposition home or self-care (01) ==
PROVIDERS: PCP Family Medicine; Visit Provider Surgery Vascular Surgery
DX: I83.12 Varicose veins of left lower extremity with inflammation (principal)
CPT/HCPCS: 99213

== ENCOUNTER → 2023-08-24 13:00 | Outpatient (BNVA) | payer OTHER, SELFPAY | PROVIDERS: PCP Family Medicine; Visit Provider Surgery Vascular Surgery | DX: I83.12 Varicose veins of left lower extremity with inflammation (principal) | CPT/HCPCS: 99212 ==

== ENCOUNTER 2024-01-20 12:33 | Outpatient (AMB) | payer OTHER, SELFPAY ==
--- NOTE | 2024-01-20 12:37 | A.OFFVIS_ITS ---
Vital Signs 01/20/24 12:42 Height 6 ft 2 in Weight 178 lb BMI 22.9 BP 116/67 Blood Pressure Location Lt brachial Position Sitting Pulse 79 Intake Visit Reasons: follow up per estella Intake Note: Patient follow up for acid reflex Patient cc: acid reflex with burning sensation, and denies any other GI issues. Health And Safety Instructor Required: No Accompanied by: Self / Same As Patient Allergies penicillin G Allergy (Unknown, Verified 01/20/24 12:36) severe Penicillins [PENICILLINS] Allergy (Unknown, Verified 01/20/24 12:36) RASH Medication List - Last Reconciled 01/20/24 by Grace Sim MD bisacodyl (Dulcolax (bisacodyl)) 20 mg (4 x 5 mg) PO ONCE 1 day ibuprofen 600 mg PO TID ibuprofen 400 mg PO Q6H PRN magnesium oxide 400 mg PO DAILY pantoprazole 20 mg PO DAILY polyethylene glycol 3350 (Miralax) 238 grams PO ONCE 1 day HPI HPI follow up per estella: Details: GI clinic visit for this 43 YM for FU after he missed his appt for EGD and Colon On 01/07/24 @ 09:49 Grace Sim Wrote To Yuly Cooper (2) Pt did not show for his EGD and colon appt [facility] Reviewed IMAGING STUDIES: 03/[address] SCAN SHOWED: No significant abnormality is seen to account for the patient's left lower quadrant pain. There has been no interval change seen when compared to the 06/30/2021 study which was also performed for evaluation of left lower quadrant pain. ENDOSCOPIC STUDIES: Pt denies having an upper endoscopy or colonoscopy in the past TODAY'S VISIT: Patient cc: acid reflex with burning sensation, and denies any other GI issues. Missed EGD and Colon appt since he started a new job and unable to call and cancel since he is unable to use the phone while at work. 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 Pt complains of heartburn after taking OJ, ketchup, seasoning, pizza. Takes dicyclomine prn for abdominal pain three times a week - which is helping Has to eat slowly, he notes dysphagia to solids - feels he has a small throat. Pt denies symptoms of nausea, vomiting, change in appetite or weight. Notes intermittent diarrhea alternating with constipation. Notes loose BMs after he eats sugar (muffins, doughnuts and coffee) Denies recent change in bowel habits, black stools or rectal bleeding. Patient denies major cardiac or pulmonary problems. tells him he snores at night Denies problems with anesthesia in the past. Denies being on chronic anticoagulation. Patient is and has 4 children (3 sons and 1 daughter) Patient denies known family history of colon polyps, colon cancer or other GI malignancies. ? hx of colon polyps in his father and stomach cancer in his paternal GF at advanced age. Brother had a colostomy due to perforation followed by reversal PAST GI HISTORY BY REVIEW OF MEDICAL RECORDS: 04/2023 PATIENT WAS SEEN IN THE GI CLINIC BY AMBER LOPEZ: 42-year-old male follows up with persistent acid reflux- pantoprazole with good -he has made dietary modifications with good response Trial of dicyclomine- no further abdominal pain Concerned about stool and cleanliness- after cleaning his healing stool, feels some irritation within colon however somewhat difficult to explain, He says he does not have hemorrhoids. He has extreme he anxious about what the underlying Cause may be. 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/ [employer] Review of Systems Const All systems reviewed & are unremarkable except as noted in HPI and below Physical Exam Vital Signs: Last Vital Signs Pulse 79 01/20/24 12:42 BP 116/67 01/20/24 12:42 BMI result Body Mass Index 22.9 Const General: healthy appearing and no acute distress Nutritional Appearance: average body habitus Orientation/consciousness: patient oriented x3 Limitations: no limitations HEENT Head: Yes normal to inspection Ears: hearing grossly normal bilaterally Eyes Sclerae: sclerae normal Pupils: Equal, round and reactive pupils present Neck Neck: Yes normal visual inspection Chest Chest palpation & inspection: normal inspection of the chest Resp Effort & Inspection: normal respiratory effort Auscultation: clear to auscultation bilaterally Cardio Palpation: normal PMI Rate: regular rate Rhythm: regular rhythm Heart sounds: S1 normal heart sound present, S2 normal heart sound present and no murmurs GI Palpation (GI): Soft to palpation, nontender and No hepatosplenomegaly present Auscultation: normal bowel sounds Rectal Exam - Male: Yes deferred Skin General skin exam: no rashes or lesions noted Neuro General: patient oriented x3, gait normal and moves all extremities Cranial nerves: Yes Equal, round and reactive pupils present Psych Appearance: grossly normal Mental Status: mental status grossly normal Assessment & Plan Assessment & Plan (1) IBS (irritable bowel syndrome): Comment: Anxiety, Code(s): K58.9 - Irritable bowel syndrome without diarrhea Category: Medical (2) Acid reflux: Code(s): K21.9 - Gastro-esophageal reflux disease without esophagitis Category: Medical (3) LLQ pain: Comment: Pleasant, anxious 42-year-old Gent referred with 1 review abdominal pain Symptoms vague P/E-unremarkable HPUBT by pcp- pending Not taking prescribed medications Code(s): R10.32 - Left lower quadrant pain Category: Medical Plan 43 YM here for FU of GERD and IBS Pt complains of heartburn after taking OJ, ketchup, seasoning, pizza. Takes dicyclomine prn for abdominal pain three times a week - which is helping Has to eat slowly, he notes dysphagia to solids - feels he has a small throat. Pt denies symptoms of nausea, vomiting, change in appetite or weight. Notes intermittent diarrhea alternating with constipation. Notes loose BMs after he eats sugar (muffins, doughnuts and coffee) Denies recent change in bowel habits, black stools or rectal bleeding. Patient denies major cardiac or pulmonary problems. tells him he snores at night Denies problems with anesthesia in the past. Denies being on chronic anticoagulation. Patient was advised to schedule an upper endoscopy (GERD) and a colonoscopy (IBS with diarrhea and constipation). Both procedures and potential complications including bleeding, perforation, reaction to anesthetic and aspiration were reviewed with the patient. Booklet on colonoscopy prep was given to the patient and he was advised to watch the video Medications: Refilled polyethylene glycol 3350 (Miralax) the day before your procedure - mix entire bottle with 64 ounces of Gatorade- (no red,blue or purple color). Start drinking 1 cup every 15minutes until half is gone, finish drinking remaining prep at 10pm 238 grams PO ONCE 1 day 238 grams 0RF bisacodyl (Dulcolax (bisacodyl)) the day before colonoscopy take 2 pills at 12pm and 2 pills at 5pm with wa ter 20 mg (4 x 5 mg) PO ONCE 1 day 4 tabs 0RF Coding Level of Care Code Est Pt Level 4 (15004) Diagnoses IBS (irritable bowel syndrome) K58.9 Acid reflux K21.9 LLQ pain R10.32 Time Spent (min) 24
[2024-01-20 12:42] VITALS: BP 116/67; PULSE 79; BMI 22.9
== END 2024-01-20 13:20 | disposition home or self-care (01) ==
PROVIDERS: PCP Family Medicine; Visit Provider Internal Medicine Gastroenterology
DX: K58.9 Irritable bowel syndrome, unspecified (principal); K21.9 Gastro-esophageal reflux disease without esophagitis; R10.32 Left lower quadrant pain
CPT/HCPCS: 99214

== ENCOUNTER → 2024-01-20 12:33 | Outpatient (BNVA) | payer OTHER, SELFPAY | PROVIDERS: PCP Family Medicine; Visit Provider Internal Medicine Gastroenterology | DX: K21.9 Gastro-esophageal reflux disease without esophagitis (principal); K58.9 Irritable bowel syndrome, unspecified; R10.32 Left lower quadrant pain | CPT/HCPCS: 99212 ==

== ENCOUNTER 2024-03-09 00:33 | Emergency (ER) | payer OTHER, SELFPAY ==
[2024-03-09 00:46] VITALS: BP 133/91; PULSE 83; RESP 18; TEMP 36.8; O2SAT 99; BMI 23.0
== END 2024-03-09 03:34 | disposition left against medical advice (07) ==
PROVIDERS: Emergency Provider Emergency Medicine; PCP Family Medicine
DX: G43.909 Migraine, unspecified, not intractable, without status migrainosus (principal)
CPT/HCPCS: 99281

== ENCOUNTER 2025-01-08 14:13 | Outpatient (REF) | payer OTHER, SELFPAY ==
--- OUTSIDE RECORDS SUMMARY | 2025-01-08 14:44 | XMS_ITS | Encounter Summary ---
Author Organization [employer] Address [address] [place] [address] Care Team Providers Care Bell Valet Name Role Phone Luz Maria Washburn DO Primary Care Provider + [phone] Reason for Visit * Reason Onset Date Comments Referral 06/25/2023 Encounter Details Date Type Department Care Team ([facility] Contact Info) Description 06/25/[address] [facility] MEDICINE [address] [place], [place] [phone] Luz Maria Washburn DO [address] [place], [place] [phone] Referral Social History Tobacco Use Types Packs/Day Years Used Date Smoking Tobacco: Former Cigarettes Passive Smoke Exposure: Past Alcohol Use Standard Drinks/Week Comments Never 0 (1 standard drink = 0.6 oz pur e alcohol) Depression Answer Date Recorded Patient Health Questionnaire-9 Score 2 03/22/2023 Patient Health Questionnaire-9 Score 2 03/22/2023 Last PHQ-9: Questionnaire Data Not on file 1 Housing Stability Answer Date Recorded What is your housing situation today? I have naomi kennedy 03/17/[address] you li ve. Do you have problems with any of the following? None of the above 03/17/2023 Food Insecurity Answer Date Recorded Within the past 12 months, y ou worried that your food would run out before you got money to buy more: Never True 03/17/2023 Within the past 12 months,th e food you bought just didn't last and you didn't have enough money to get more: Never True Transportation Answer Date Recorded In the past 12 months, has l ack of transportation kept you from medical appts, meetings, work or from getting things needed for daily living? No 03/17/2023 Utilities Answer Date Recorded In the past 12 months, has t he electric, gas, oil or water company threatened to shut off services in your home? No 03/17/2023 Depression Answer Date Recorded Patient Health Questionnaire-2 Score 2 03/22/2023 Sex and Gender Information Value Date Recorded Sex Assigned at Male 03/30/2022 10:16 AM EDT Legal Sex Male 10:16 AM EDT Gender Identity Male 03/30/2022 10:16 AM EDT Sexual Orientation Straight 03/30/2022 10 :16 AM EDT documented as of this encounter Miscellaneous Notes * Telephone Encounter - Verna Navarro - 09/30/2023 3:05 PM EDT Tc from Felicitas with [facility] requesting a call back in regards below message. Please contact Felicitas at [phone] * Telephone Encounter - Tessy Smith RN - 06/29/2023 3:27 PM EST Per Tawnya Rodrigez: Can I please get some assistance in getting number and fax. I have tried searching in [email or web address] and found nothing. Per [email or web address], phone number is [phone]. RN also called office and obtained fax number [phone]. * Telephone Encounter - Tessy Smith RN - 06/28/2023 10:42 AM EST Upon chart review, pt was referred to [facility] in [place] 03/22/2023. TC placed to pt [phone] in regards to below message. Pt reports he does NOT want to be seen at the chiropractic office in [place]. Pt reports he does not like the location. Pt would like to be referred to: [facility] [address] [place] [address] new referral to new location. Thank you! * Telephone Encounter - Chitra Resendez - 06/25/2023 3:21 PM EST TC from felicitas with [facility] states pt is requesting new referral DATE: n/a TIME: n/a Location: [address] [place] [address] Facility: [facility] Type of Specialist: Chiropractor DX: chronic back pain documented in this encounter Plan of Treatment Not on file documented as of this encounter Visit Diagnoses Not on filedocumented in this encounter Additional Health Concerns Assessment Noted Time PHQ-9 Depression Total Score: 2 03/22/20 23 10:33 AM EDT documented as of this encounter Care Teams Bell Valet Relationship Specialty Start Date End Date Luz Maria Washburn DO [address] [place] [address] PCP - General Family Medicine 06/06/21 documented as of this encounter
[2025-01-08 14:54] LABS: Hematocrit 43.0 % (42.0-52.0); Hemoglobin 15.1 g/dl (14.0-18.0); Mean Corpuscular HGB Conc 35.1 g/dl (31.0-36.0); Mean Corpuscular Hemoglobin 30.9 pg (27.0-33.0); Mean Corpuscular Volume 88.1 fL (80.0-98.0); NRBC Abs Auto 0.000 X10*3/uL (0.0-0.012); NRBC Pct Auto 0.0 /100WBC (0.0-0.2); Platelet Count 187 X10*3/uL (160-400); Red Blood Count 4.88 X10*6/uL (4.60-5.80); White Blood Count 3.9 X10*3/uL (4.8-10.8)
[2025-01-08 15:10] LABS: Hemoglobin A1C 151.5344 umol/L; Total Hemoglobin (HGBA1C) 3968.9072 umol/L
[2025-01-08 16:02] LABS: Microalbum/Creatinine Ratio Ur 7.6 ug/mg cr (<30)
[2025-01-08 16:08] LABS: Alanine Aminotransferase 21 U/L (0-40); Albumin Level 4.7 g/dL (3.5-5.0); Alkaline Phosphatase 74 U/L (39-117); Anion Gap 11 (12-20); Aspartate Amino Transferase 26 U/L (5-37); Blood Urea Nitrogen 11 mg/dL (9-16); Calcium 9.1 mg/dL (8.4-10.2); Carbon Dioxide 29 mmol/L (22-29); Chloride 108 mmol/L (96-108); Cholesterol 138 mg/dL (<200); Estimated Glomerular Filt Rate > 60; Free T4 (Free Thyroxine) 0.93 ng/dL (0.71-1.85); HDL Cholesterol 55 mg/dL (>40); Potassium 3.6 mmol/L (3.3-5.1); Sodium 144 mmol/L (135-145); Thyroid Stimulating Hormone 0.78 uIU/mL (0.32-4.0); Total Protein 7.3 g/dL (6.5-8.0); Triglycerides 47 mg/dL (<150)
[2025-01-09 08:57] LABS: HBS Num1 0.39 mIU/mL (0-7.99); HBc Num1 0.05 S/CO (0.00-0.79); HBsAGNum1 0.45 S/CO (0.00-0.99); HIV Num 1 0.04 S/CO (0.00-0.99); Hepatitis B Surface Antigen Negative (Negative); ~HepC Num1 0.10 S/CO (0.00-0.79); ~Hepatitis B Surface Antibody NONREACTIVE (Nonreactive); ~Hepatitis C Antibody Nonreactive (Nonreactive)
[2025-01-09 15:31] LABS: MANUAL DIFF FLAG NO
[2025-01-09 15:41] LABS: Imm Gran Abs Auto 0.02 X10*3/uL (0.00-0.03); Imm Gran Pct Auto 0.5 % (0.0-0.4); Lymphocytes Absolute Auto 0.9 X10*3/uL (1.2-4.9)
[2025-01-12 03:59] LABS: ~Hepatitis A Antibody IgG 0.32 S/CO (0.00-0.99)
== END 2025-01-08 14:14 | disposition home or self-care (01) ==
LOC: HO.LAB 14:13
PROVIDERS: PCP Family Medicine; Visit Provider Family Medicine
DX: Z00.00 Encounter for general adult medical examination without abnormal findings (principal); Z11.59 Encounter for screening for other viral diseases; Z11.4 Encounter for screening for human immunodeficiency virus [HIV]; I10 Essential (primary) hypertension; J45.20 Mild intermittent asthma, uncomplicated; K21.9 Gastro-esophageal reflux disease without esophagitis; G43.809 Other migraine, not intractable, without status migrainosus
CPT/HCPCS: 36415; 80048; 80061; 80076; 82043; 82306; 82570; 83036; 84439; 84443; 85025; 85027; 86592; 86704; 86706; 86708; 86803; 87340; 87389

== ENCOUNTER 2025-02-19 07:23 | Outpatient (AMB) | payer OTHER, SELFPAY ==
--- OUTSIDE RECORDS SUMMARY | 2025-02-19 07:26 | XMS_ITS | Encounter Summary ---
Author Organization [employer] Address [address] [place] [address] [address] [place] [address] Care Team Providers Care Insurance Specialist Name Role Phone Luz Maria Washburn DO Primary Care Provider + [phone] Reason for Visit * Reason Comments Med Change Request Encounter Details Date Type Department Care Team ([facility] Contact Info) Description 06/11/2022 Refill [facility] MEDICINE [address] [place], [place] [phone] Luz Maria Washburn DO [address] [place], [place] [phone] Asthma, unspecified asthma severity, unspecified whether complicated, unspecified whether persistent Social History Tobacco Use Types Packs/Day Years Used Date Smoking Tobacco: Never Assessed Sex and Gender Information Value Date Recorded Sex Assigned at Male 03/30/2022 10:16 AM EDT Legal Sex Male 10:16 AM EDT Gender Identity Male 03/30/2022 10:16 AM EDT Sexual Orientation Straight 03/30/2022 10 :16 AM EDT COVID-19 Exposure Response Date Recorded In the last 10 days, have yo u been in contact with someone who was confirmed or suspected to have Coronavirus/COVID-19? No / Unsure 06/12/2022 11:26 AM EST documented as of this encounter Plan of Treatment Not on file documented as of this encounter Visit Diagnoses Diagnosis Asthma, unspecified asthma severity, unspecified whether complicated, unspecified whether persistent documented in this encounter Care Teams Insurance Specialist Relationship Specialty Start Date End Date Luz Maria Washburn DO [address] [place], [place] [phone] PCP - General Family Medicine 06/06/21 documented as of this encounter
--- OUTSIDE RECORDS SUMMARY | 2025-02-19 07:26 | XMS_ITS | Encounter Summary ---
Author Organization [employer] Address [address] [place] [address] Care Team Providers Care Concierge Receptionist Name Role Phone Luz Maria Washburn DO Primary Care Provider + [phone] Reason for Visit * Reason Onset Date Comments Referral 06/25/2023 Encounter Details Date Type Department Care Team ([facility] Contact Info) Description 06/25/2023 Telephone [facility] MEDICINE [address] [place], [place] [phone] Luz Maria Washburn DO [address] [place], [place] [phone] Referral Social History Tobacco Use Types Packs/Day [...] 3:05 PM EDT Tc from Felicitas with [facility] requesting a call back in regards below message. Please contact Felicitas at [phone] * Telephone Encounter - Tessy Smith RN - 06/29/2023 3:27 PM EST Per Tawnya Rodrigez: Can I please get some assistance in getting number and fax. I have tried searching in [employer] and found nothing. Per [employer], phone number is [phone]. RN also called office and obtained fax number [phone]. * Telephone Encounter - Tessy Smith RN - 06/28/2023 10:42 AM EST Upon chart review, pt was referred to [facility] in [place] 03/22/2023. TC placed to pt [phone] in regards to below message. Pt reports he does NOT want to be seen at the chiropractic office in [place]. Pt reports he does not like the location. Pt would like to be referred to: [facility] [address] [place] [address] new referral to new location. Thank you! * Telephone Encounter - Chitra Resendez - 06/25/2023 3:21 PM EST TC from felicitas with [facility] states pt is requesting new referral DATE: n/a TIME: n/a Location: [address] [place] [address] Facility: [facility] Type of Specialist: Chiropractor DX: chronic back pain documented in this encounter Plan of Treatment Not on file documented as of this encounter Visit Diagnoses Not on filedocumented in this encounter Additional Health Concerns Assessment Noted Time PHQ-9 Depression Total Score: 2 03/22/20 23 10:33 AM EDT documented as of this encounter Care Teams Concierge Receptionist Relationship Specialty Start Date End Date Luz Maria Washburn DO [address] [place] [address] PCP - General Family Medicine 06/06/21 documented as of this encounter
--- OUTSIDE RECORDS SUMMARY | 2025-02-19 07:26 | XMS_ITS | Encounter Summary ---
Author Organization [employer] Address [address] [facility] [address] [place] [address] Care Team Providers Care Grommet Machine Operator Name Role Phone Luz Maria Washburn DO Primary Care Provider + [phone] Reason for Visit * Reason Onset Date Comments Appointment Request 06/25/2023 Encounter Details Date Type Department Care Team ([facility] Contact Info) Description 06/25/2023 Telephone [facility] MEDICINE [address] [place], [place] [phone] Luz Maria Washburn DO [address] [place], [place] [phone] Appointment Request Social History Tobacco Use Types Packs/Day Years [...] encounter Miscellaneous Notes * Telephone Encounter - Chitra Resendez - 06/25/2023 3:25 PM EST Tc from atif with [facility] states pt is requesting an appointment with PCP to discuss lab results from 04/13. documented in this encounter Plan of Treatment Not on file documented as of this encounter Visit Diagnoses Not on filedocumented in this encounter Additional Health Concerns Assessment Noted Time PHQ-9 Depression Total Score: 2 03/22/20 23 10:33 AM EDT documented as of this encounter Care Teams Grommet Machine Operator Relationship Specialty Start Date End Date Luz Maria Washburn DO [address] [place] [address] PCP - General Family Medicine 06/06/21 documented as of this encounter
--- OUTSIDE RECORDS SUMMARY | 2025-02-19 07:26 | XMS_ITS | Clinical Summary ---
Author Organization [employer] Address [address] [facility] [address] [place] [address] Care Team Providers Care Over Hauler Helper Name Role Phone CheikhLuz Maria white Primary Care Provider + [phone] Allergies Active Allergy Reactions Criticality Noted Date Comments Penicillins High 07/04/2012 Medications Diclofenac Sodium 1 % gel Apply 2 g topically if needed in the morning, at noon, in the evening, and at bedtime (pain). 150 g 2 3 Active amLODIPine (Norvasc) 5 MG tablet 5 mg. 4 Active Ventolin HFA 108 (90 Base) MCG/ACT inhaler INHALE 2 PUFFS BY INHALATION ROUTE 4-6 TIMES EVERY DAY NEEDED 18 g 1 5 Active Magnesium Extra Strength 400 MG capsule TAKE 1 CAPSULE BY MOUTH EVERY DAY 90 capsule 5 Active pantoprazole (Protonix) 20 MG EC tablet Take 1 tablet (20 mg) by mouth before breakfast. Do not crush, chew, or split. 90 tablet 1 5 12/07/19 26 Active SUMAtriptan (Imitrex) 25 MG tabletIndication s:Other migraine without status migrainosus, not intractable Take 1 tablet (25 mg) by mouth 1 (one) time if needed for migraine. May repeat dose once in 2 hours if no relief. Do not exceed 2 doses in 24 hours. 9 tablet 2 5 Active topiramate (Topamax) 25 MG tabletIndication s:Other migraine without status migrainosus, not intractable Take 1 tablet by mouth daily at bedtime 90 tablet 1 5 Active dicyclomine (Bentyl) 10 MG capsule Take 1 capsule (10 mg) by mouth 4 times daily. 30 capsule 3 5 12/07/19 26 Active Active Problems Problem Noted Date Diagnosed Date Chronic gastroesophageal reflux disease 12/07/19 25 Irritable bowel syndrome 12/06/2024 Essential hypertension 05/17/2024 Chronic migraine 12/21/2023 Assessment & Plan (03/09/2024 3:17 PM EDT): Reported hx of migraines without aura. Pt reports multiple migraines a week. No warning signs. Neurologically intact. Differential includes cluster headaches. Has only tried Excedrin in the past with minimal relief. Discussed starting new medication and referring to Neurology that prevents migraines, but pt is skeptical and would rather just see Neurology. -recommended taking ibuprofen for pain in the mean time. -referral placed to Neurology 03/09/24 -referred to [facility] 03/09/24 -given work note. -ER precautions discussed. 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 ,normal neuro exam and normal VS -advised to improve hydration and discuss at work need for AC -excedrin and NSAIDS PRN -start PO mag to see if helps as ppx -will need triptanes and other options as Topiramate for ppx if no improvement -f w PCP in 4 weeks to monitor Bilateral carpal tunnel syndrome 03/22/2023 Chronic low back pain 06/12/2022 Congenital pectus excavatum 06/12/2022 Mild intermittent asthma 06/12/2022 Thoracic aortic ectasia 06/12/2022 Vitamin D deficiency 06/12/2022 History of COVID-19 06/12/2022 History of cocaine use 06/12/2022 Resolved Problems Problem Noted Date Diagnosed Date Resolved Date Left lower quadrant pain 03/03/2023 Assessment & Plan (03/03/2023 7:26 PM EDT): Fecal leakage, intermittent LLQ pain ? Weight loss Father dx with colon cancer last year, brother with ostomy x 4 years GI referral Encounters Date Type Department Care Team Description 02/02/2025 2:20 PM EDT Office Visit [facility] [address] [place] [phone] Courtney Pinto NP Allergic reaction, initial encounter (Primary Dx) 02/02/2025 Travel 01/09/[address] [phone] Luz Maria Washburn DO Lab Add On 12/12/[address] [phone] Luz Maria Washburn DO Durable Medical Equipment ([facility] [employer]: Nebulizer.) 12/06/2024 10:45 AM EDT Office Visit [address] [phone] Luz Maria Washburn DO Essential hypertension (Primary Dx); Chronic migraine; Mild intermittent asthma without complication; Chronic gastroesophageal reflux disease; Healthcare maintenance; Other migraine without status migrainosus, not intractable 12/06/2024 Travel 11/29/[address] [phone] Luz Maria Washburn DO Chart Prep 11/27/2024 Patient Outreach [address] [phone] Luz Maria Washburn DO Pre-visit Planning ((Unable to reach for PVP screening, LVM) to be completed in office ) from Last 3 Months Immunizations Immunization Administration Dates Next Due DTaP 02/28/1987, 5,09/29/1983,1983,02/28/1983 Hep B, Adolescent or Pediatric 10/29/1997 Hep B, adult 04/30/1998,01/21/1998 IPV 02/28/1987, 5,09/29/1983,1983,02/28/1983 Influenza injectable quadriv alent IIV4 with preservative 02/22/2019,05/03/2015 Influenza injectable quadriv alent preservative free 03/01/2023,08/14/2022,05/27/2021,2019,05/13/2016 Influenza, High Dose Seasona l, Preservative Free 05/11/2018 Influenza, Split (incl. caitlin fied surface antigen) 07/12/2013,07/04/2012 Influenza, seasonal, injecta ble, preservative free 03/21/2024 MMR 02/28/1994,03/31/1984 Moderna Covid-19 Vaccine 12+ 05/27/2021,11/05/19 21,10/07/2020 Moderna Covid-19 Vaccine 6+ Bivalent 08/14/2022 TD (adult), 2 Lf tetanus tox oid, preservative free, adsorbed 08/12/2004 Tdap 12/06/2024,01/25/2015 Family History Medical History Relation Name Comments Diverticulosis Brother Albinism Daughter Coronary artery disease Father Asthma Mother Hypertension Mother Osteoporosis Mother Sickle cell anemia Mother Cancer Paternal Grandfather Stroke Paternal Grandmother Autism Son Relation Name Status Comments Brother Daughter Alive Father Mother Paternal Grandfather Paternal Grandmother Son Alive Social History Tobacco Use Types Packs/Day Years Used Date Smoking Tobacco: Former Cigarettes Passive Smoke Exposure: Past Smokeless Tobacco: Former Tobacco Cessation:Counseling Given: Not Answered Alcohol Use Standard Drinks/Week Comments Never 0 (1 standard drink = 0.6 oz pur e alcohol) Depression Answer Date Recorded Patient Health Questionnaire-9 Score 0 12/06/2024 Patient Health Questionnaire-9 Score 0 12/06/2024 Last PHQ-9: Questionnaire Data Not on file 0 12/06/2024 Housing Stability Answer Date Recorded What is your housing situation today? I have naomi kennedy 12/06/[address] you li ve. Do you have problems with any of the following? Pests such as bugs, ants, or mice;Mold 12/06/2024 Food Insecurity Answer Date Recorded Within the past 12 months, y ou worried that your food would run out before you got money to buy more: Never True 12/06/2024 Within the past 12 months,th e food you bought just didn't last and you didn't have enough money to get more: Never True 01/2025 Transportation Answer Date Recorded In the past 12 months, has l ack of transportation kept you from medical appts, meetings, work or from getting things needed for daily living? No 12/06/2024 Utilities Answer Date Recorded In the past 12 months, has t he electric, gas, oil or water company threatened to shut off services in your home? No 12/06/2024 Depression Answer Date Recorded Patient Health Questionnaire-2 Score 0 12/06/2024 Internet Access Answer Date Recorded Internet Access Q1 Yes 12/06/2024 Internet Access Q2 Not on file 12/06/2024 Sex and Gender Information Value Date Recorded Sex Assigned at Male 03/30/2022 10:16 AM EDT Legal Sex Male 10:16 AM EDT Gender Identity Male 03/30/2022 10:16 AM EDT Sexual Orientation Straight 03/30/2022 10 :16 AM EDT Last Filed Vital Signs Vital Sign Reading Time Taken Comments Blood Pressure 111/84 02/02/2025 2:26 PM EDT Pulse 78 02/02/2025 2:26 PM EDT Temperature 37.2 C (99 F) 02/02/2025 2:26 PM EDT Respiratory Rate 18 02/02/2025 2:26 PM EDT Oxygen Saturation 98% 02/02/2025 2:26 PM EDT Inhaled Oxygen Concentration - - Weight 81.6 kg (180 lb) 02/02/2025 2:26 PM EDT Height 188 cm (6' 2 ) 12/06/2024 10:31 AM EDT Body Mass Index 23.11 12/06/2024 10:31 AM EDT Plan of Treatment Health Maintenance Due Date Last Done Comments Alcohol/Substance Use Screening 1994 Family Planning (PISQ) 1997 HPV Vaccines (1 - Male 3-dose series) 1997 Pneumococcal Vaccine: Pediatrics (0 to 5 Years) and At-Risk Patients (6 to 49) Years (1 of 2 - PCV) 2001 COVID-19 Vaccine ( - season) 2025 08/14/2022, 05/27/2021, 11/04/2020, Additional history exists Influenza Vaccine (#1) 2025 , 03/01/2023, 08/14/2022, Additional history exists Depression Screening 12/06/2025 12/06/2024, 12/07/19 25 Disability Screening 12/06/2025 12/06/2024 SDOH Screening 12/06/2025 12/06/2024 Tobacco Screening 02/02/2026 02/02/2025 Lipid Panel 01/08/2030 01/08/2025, 03/31, 06/09/2021, Additional history exists Zoster Vaccines (1 of 2) 2032 DTaP/Tdap/Td Vaccines (8 - Td or Tdap) 12/06/2034 12/06/2024, 01/25/2015, 08/12/2004, Additional history exists RSV Patients and Patients Aged 60 years or older (1 - 1-dose 75+ series) 2057 IPV Vaccines Completed 02/28/1987, 05/1984, 09/29/1983, Additional history exists Hepatitis B Vaccines Completed 04/30/1998, 01/21/1998, 10/29/1997 HIV Screening Completed 01/08/2025, 03/31, 04/13/2023, Additional history exists Hepatitis C Screening Completed 01/08/2025 , 04/13/2023, 06/09/2021 HIB Vaccines Aged Out No longer eligi ble based on patient's age to complete this topic Hepatitis A Vaccines Aged Out No long er eligible based on patient's age to complete this topic Meningococcal B Vaccine Aged Out No l onger eligible based on patient's age to complete this topic Meningococcal Vaccine Aged Out No milady althea eligible based on patient's age to complete this topic RSV under 20 months Aged Out No longe r eligible based on patient's age to complete this topic Rotavirus Vaccines Aged Out No longer eligible based on patient's age to complete this topic Procedures Procedure Name Priority Date/Time Associated Diagnosis Comments CBC WITH AUTO DIFFERENTIAL Routine 01/08/2025 2:32 PM EDT Abnormal white blood cell HEPATITIS B CORE AB TOTAL Routine 01/08/2025 2:32 PM EDT Essential hypertension Chronic migraine Mild intermittent asthma without complication Chronic gastroesophageal reflux disease Healthcare maintenance Other migraine without status migrainosus, not intractable HEPATITIS A ANTIBODY, TOTAL Routine 01/08/2025 2:32 PM EDT Essential hypertension Chronic migraine Mild intermittent asthma without complication Chronic gastroesophageal reflux disease Healthcare maintenance Other migraine without status migrainosus, not intractable HEPATITIS B SURFACE ANTIBODY, QUALITATIVE Routine 01/08/2025 2:32 PM EDT Essential hypertension Chronic migraine Mild intermittent asthma without complication Chronic gastroesophageal reflux disease Healthcare maintenance Other migraine without status migrainosus, not intractable RPR (MONITOR) W/REFL TITER Routine 01/08/2025 2:32 PM EDT Essential hypertension Chronic migraine Mild intermittent asthma without complication Chronic gastroesophageal reflux disease Healthcare maintenance Other migraine without status migrainosus, not intractable HEPATITIS C AB W/REFL TO HCV RNA, QN, PCR Routine 01/08/2025 2:32 PM EDT Essential hypertension Chronic migraine Mild intermittent asthma without complication Chronic gastroesophageal reflux disease Healthcare maintenance Other migraine without status migrainosus, not intractable HIV 1/2 ANTIGEN/ANTIBODY, FOURTH GENERATION W/RFL Routine 01/08/2025 2:32 PM EDT Essential hypertension Chronic migraine Mild intermittent asthma without complication Chronic gastroesophageal reflux disease Healthcare maintenance Other migraine without status migrainosus, not intractable HEPATITIS B SURFACE ANTIGEN, EIA Routine 01/08/2025 2:32 PM EDT Essential hypertension Chronic migraine Mild intermittent asthma without complication Chronic gastroesophageal reflux disease Healthcare maintenance Other migraine without status migrainosus, not intractable CBC Routine 01/08/2025 2:32 PM EDT Essential hypertension Chronic migraine Mild intermittent asthma without complication Chronic gastroesophageal reflux disease Healthcare maintenance Other migraine without status migrainosus, not intractable BASIC METABOLIC PANEL Routine 01/08/2025 2:32 PM EDT Essential hypertension Chronic migraine Mild intermittent asthma without complication Chronic gastroesophageal reflux disease Healthcare maintenance Other migraine without status migrainosus, not intractable HEMOGLOBIN A1C Routine 01/08/2025 2:32 PM EDT Essential hypertension Chronic migraine Mild intermittent asthma without complication Chronic gastroesophageal reflux disease Healthcare maintenance Other migraine without status migrainosus, not intractable HEPATIC FUNCTION PANEL Routine 01/08/2025 2:32 PM EDT Essential hypertension Chronic migraine Mild intermittent asthma without complication Chronic gastroesophageal reflux disease Healthcare maintenance Other migraine without status migrainosus, not intractable TSH Routine 01/08/2025 2:32 PM EDT Essential hypertension Chronic migraine Mild intermittent asthma without complication Chronic gastroesophageal reflux disease Healthcare maintenance Other migraine without status migrainosus, not intractable LIPID PANEL, STANDARD Routine 01/08/2025 2:32 PM EDT Essential hypertension Chronic migraine Mild intermittent asthma without complication Chronic gastroesophageal reflux disease Healthcare maintenance Other migraine without status migrainosus, not intractable VITAMIN D,25-OH,TOTAL,IA Routine 01/08/2025 2:32 PM EDT Essential hypertension Chronic migraine Mild intermittent asthma without complication Chronic gastroesophageal reflux disease Healthcare maintenance Other migraine without status migrainosus, not intractable T4, FREE Routine 01/08/2025 2:32 PM EDT Essential hypertension Chronic migraine Mild intermittent asthma without complication Chronic gastroesophageal reflux disease Healthcare maintenance Other migraine without status migrainosus, not intractable ALBUMIN, RANDOM URINE W/CREATININE Routine 01/08/2025 2:30 PM EDT Essential hypertension Chronic migraine Mild intermittent asthma without complication Chronic gastroesophageal reflux disease Healthcare maintenance Other migraine without status migrainosus, not intractable from Last 3 Months Results * (ABNORMAL) Vitamin D, 25-Hydroxy, Total, Immunoassay (01/08/2025 2:32 PM EDT) Vitamin D 25-OH Total 25.1(L) >30 ng/mL [facility] Comment: Health Based Reference Values*< 20 ng/mL [id number] ng/mL Insufficient> 30 ng/mL Sufficient*Olivia STOREY. N Engl J Med. 2007;[id number]:[id number] is no well-established upper level of normal vitamin Dlevels. Some laboratories use 50 ng/mL as an upper limit ofnormal. However, toxicity is patient-dependent and may occurat any level. Careful correlation with the patient'spresentation is necessary and, if there is concern forvitamin D toxicity, treatment should be consideredirrespective of the serum level.Care must be taken in interpreting Vitamin D results fromdifferent laboratories and methodologies. Published datademonstrated that results from patients undergoinghemodialysis may show a negative bias when tested withvarious automated 25-OH vitamin D assays when compared toLC-MS/MS.When testing samples from patients whose predominant form ofVitamin D is Vitamin D2, such as patients receiving VitaminD2 supplementation, results that are subtherapeutic shouldbe confirmed with another method such as LC-MS/MS. Blood Venous blood specimen / Unknown 01/08/2025 2:32 PM EDT 01/08/2025 2:32 PM EDT us Luz Maria Washburn DO LAB BLOOD ORDERABLES Final R esult [facility] [address] [place] [phone] * (ABNORMAL) CBC auto differential (01/08/2025 2:32 PM EDT) Neutrophils Percent Auto 65.3 45 - 73 % [facility] Imm Gran Pct Auto 0.5(H) 0.0 - 0.4 % [facility] Lymphocytes Percent Auto 24.0 20 - 40 % [facility] Monocytes Percent Auto 6.8 2 - 11 % [facility] Eosinophils Percent Auto 2.6 0 - 4 % [facility] Basophils Percent Auto 0.8 0 - 2 % [facility] Neutrophils Absolute Auto 2.5 2.0 - 8.3 x10*3/uL [facility] Imm Gran Abs Auto 0.02 0.00 - 0.03 X10*3/uL [facility] Lymphocytes Absolute Auto 0.9(L) 1.2 - 4.9 X10*3/uL [facility] Monocytes Absolute Auto 0.3 0.1 - 1.2 X10*3/uL [facility] Eosinophils Absolute Auto 0.1 0.0 - 0.4 X10*3/uL [facility] Basophils Absolute Auto 0.0 0.0 - 0.2 X10*3/uL [facility] Blood Venous blood specimen / Unknown 01/08/2025 2:32 PM EDT 01/08/2025 2:32 PM EDT Luz Maria Washburn DO LAB BLOOD ORDERABLES Final R esult Performing Organization Address [facility]/ZIP Co de Phone Number [facility] [address] [place] [phone] * Hepatitis C Antibody with Reflex to HCV, RNA, Quantitative, Real-Time PCR (01/08/2025 2:32 PM EDT) Hepatitis C Antibody Nonreactive Nonreactive [facility] Comment:Antibodies to HCV no t detected; does not exclude early acuteHCV infection. Blood Venous blood specimen / Unknown 01/08/2025 2:32 PM EDT 01/08/2025 2:32 PM EDT Luz Maria Washburn LAB BLOOD ORDERABLES Final R esult Performing Organization Address [facility]/ZIP Co de Phone Number [facility] [address] [place] [phone] * Hepatitis A Antibody, Total (01/08/2025 2:32 PM EDT) Hepatitis A Antibody IgG Nonreactive Nonreactive [facility] Blood Venous blood specimen / Unknown 01/08/2025 2:32 PM EDT 01/08/2025 2:32 PM EDT Luz Maria Washburn LAB BLOOD ORDERABLES Final R esult Performing Organization Address [facility] Co de Phone Number [facility] [address] [place] [phone] * Hepatitis B surface antigen, EIA (01/08/2025 2:32 PM EDT) Hepatitis B Surface Ag Negative Negative [facility] Blood Venous blood specimen / Unknown 01/08/2025 2:32 PM EDT 01/08/2025 2:32 PM EDT Luz Maria Washburn DO LAB BLOOD ORDERABLES Final R esult Performing Organization Address [facility]/ZIP Co de Phone Number [facility] [address] [place] [phone] * Hepatitis B Core Antibody, Total (01/08/2025 2:32 PM EDT) Hepatitis B Core Antibody Nonreactive Nonreactive [facility] Blood Venous blood specimen / Unknown 01/08/2025 2:32 PM EDT 01/08/2025 2:32 PM EDT Luz Maria Washburn DO LAB BLOOD ORDERABLES Final R esult Performing Organization Address [facility] Co de Phone Number [facility] [address] [place] [phone] * RPR (Monitor) with Reflex to??Titer (01/08/2025 2:32 PM EDT) RPR (Monitor) w/Refl Titer NON-REACTI VE NON-REACT ROSMERY [facility] Comment:THIS TEST WAS PERFOR MED AT:[address] [place] [phone] PETERS MD Rapid Plasma Reagin Ab Titer TNP [facility] Blood Venous blood specimen / Unknown 01/08/2025 2:32 PM EDT 01/08/2025 2:32 PM EDT Luz Maria Washburn DO LAB BLOOD ORDERABLES Final R esult Performing Organization Address [facility]/ZIP Co de Phone Number [facility] [address] [place] [phone] * HIV-1/2 Antigen and Antibodies, Fourth Generation, with Reflexes (01/08/2025 2:32 PM EDT) [facility] HIV AB/AG Nonreactive Nonreactive [facility] Comment:HIV-1 p24 Ag and/or HIV-1/HIV-2 Ab not detected.A test result that is nonreactive does not exclude thepossibility of exposure to or infection with HIV-1 and/orHIV-2. Nonreactive results in this assay for individualswith prior exposure to HIV-1 and/or HIV-2 may be due toantigen and antibody levels that are below the limit ofdetection of this assay.The [employer] HIV Ag/Ab Combo assay result andsupplemental assay results should be interpreted inconjunction with the patient's clinical presentation,history and other laboratory results. If the results areinconsistent with clinical evidence, additional testing issuggested to confirm the result. Blood Venous blood specimen / Unknown 01/08/2025 2:32 PM EDT 01/08/2025 2:32 PM EDT Luz Maria Washburn [employer] LAB BLOOD ORDERABLES Final R esult Performing Organization Address City/[facility]/ZIP Co de Phone Number [facility] [address] [place] [address] [phone] * Hepatitis B Surface Antibody, Qualitative (01/08/2025 2:32 PM EDT) [facility] ~Hepatitis B Surface Antibody NONREACTIVE Nonreactive [facility] Comment:Nonreactive: < 8.00 mIU/mL Blood Venous blood specimen / Unknown 01/08/2025 2:32 PM EDT 01/08/2025 2:32 PM EDT Luz Maria Washburn [employer] LAB BLOOD ORDERABLES Final R esult Performing Organization Address [facility] Co de Phone Number [facility] [address] [place] [phone] * (ABNORMAL) CBC (01/08/2025 2:32 PM EDT) [facility] White Blood Count 3.9(L) 4.8 - 10.8 X10*3/uL [facility] Red Blood Count 4.88 4.60 - 5.80 X10*6/uL [facility] Hemoglobin 15.1 14.0 - 18.0 g/dl [facility] Hematocrit 43.0 42.0 - 52.0 % [facility] Mean Corpuscular Volume 88.1 80.0 - 98.0 fL [facility] Mean Corpuscular Hemoglobin 30.9 27.0 - 33.0 pg [facility] Mean Corpuscular HGB Conc 35.1 31.0 - 36.0 g/dl [facility] Red Cell Distribution Width 12.6 11.0 - 16.0 % [facility] Platelet Count 187 160 - 400 X10*3/uL [facility] Mean Platelet Volume 9.1(L) 9.4 - 12.4 fL [facility] NRBC Pct Auto 0.0 0.0 - 0.2 /100WBC [facility] NRBC Abs Auto 0.000 0.0 - 0.012 X10*3/uL [facility] Blood Venous blood specimen / Unknown 01/08/2025 2:32 PM EDT 01/08/2025 2:32 PM EDT Luz Maria Washburn DO LAB BLOOD ORDERABLES Final R esult [facility] [address] [place] [phone] * TSH (01/08/2025 2:32 PM EDT) Thyroid Stimulating Hormone 0.78 0.32 - 4.0 uIU/mL [facility] Comment:TSH 3rd Generation ( [facility]) Blood Venous blood specimen / Unknown 01/08/2025 2:32 PM EDT 01/08/2025 2:32 PM EDT Luz Maria Washburn DO LAB BLOOD ORDERABLES Final R esult Performing Organization Address [facility]/ZIP Co de Phone Number [facility] [address] [place] [phone] * T4, Free (01/08/2025 2:32 PM EDT) Free T4 (Free Thyroxine) 0.93 0.71 - 1.85 ng/dL [facility] Blood Venous blood specimen / Unknown 01/08/2025 2:32 PM EDT 01/08/2025 2:32 PM EDT Luz Maria Washburn [employer] LAB BLOOD ORDERABLES Final R esult Performing Organization Address [facility] Co de Phone Number [facility] [address] [place] [phone] * Hemoglobin A1c (01/08/2025 2:32 PM EDT) Pathologist [facility] Hemoglobin A1c 5.6 <6.0 % [facility] Comment:Hemoglobin A1C Refer ence Range Adults: 4.8 - 6.0 % Non diabetic: < 6.0 % Goal: < 7.0 %Additional Action Suggested: > 8.0 %Note: Hemoglobin A1c results are invalid for patients with abnormal amounts of HbF. Blood transfusions may impact the HbA1c concentration in the patient sample. Estimated Average Glucose 114 mg/dL [facility] Comment:eAG = Estimated ave rage glucose which is %A1C expressed asaverage glucose, using the formula of the S0Q-VhhraqmMsiqgak Glucose study (ADAG), Diabetes Care, Vol.31,#8,Dec. 2007 Blood Venous blood specimen / Unknown 01/08/2025 2:32 PM EDT 01/08/2025 2:32 PM EDT Luz Maria Washburn [employer] LAB BLOOD ORDERABLES Final R esult Performing Organization Address [facility] Co de Phone Number [facility] [address] [place] [phone] * (ABNORMAL) Hepatic Function Panel (01/08/2025 2:32 PM EDT) Bilirubin, Total 2.2(H) 0.0 - 1.0 mg/dL [facility] Comment:Slight Icterus. Bilirubin, Direct 0.5 0.0 - 0.5 mg/dL [facility] Comment:Slight Icterus. Aspartate Amino Transferase 26 5 - 37 U/L [facility] Alanine Aminotransferase 21 0 - 40 U/L [facility] Total Protein 7.3 6.5 - 8.0 g/dL [facility] Albumin Level 4.7 3.5 - 5.0 g/dL [facility] Alkaline Phosphatase 74 39 - 117 U/L [facility] Blood Venous blood specimen / Unknown 01/08/2025 2:32 PM EDT 01/08/2025 2:32 PM EDT us Luz Maria Washburn DO LAB BLOOD ORDERABLES Final R esult [facility] [address] [place] [phone] * Lipid Panel, Standard (01/08/2025 2:32 PM EDT) Triglycerides 47 <150 mg/dL [facility] Comment:Desirable Triglyceri de: less than 150 mg/dLBorderline High Triglyceride 150-199 mg/dLHigh Triglyceride: 200-499 mg/dLVery High Triglyceride: greater than or equal to 5OO mg/dL Cholesterol 138 <200 mg/dL [facility] Comment:Desirable Cholestero l: less than 200 mg/dLBorderline High Cholesterol: 200-239 mg/dLHigh Cholesterol: greater than 239 mg/dL LDL Cholesterol Calculated 74 <100 mg/dL [facility] Comment:Desirable LDL: less than 100 mg/dLNear Optimal/Above Optimal LDL: 110- 129 mg/dLBorderline High LDL: 130-159 mg/dLHigh LDL: 160-189 mg/dLVery High LDL: greater than or equal to 190 mg/dL HDL Cholesterol 55 >40 mg/dL [facility] Comment:Desirable HDL: great er than 40 mg/dL Note: This HDL assay may give artificially low results in patients with liver disease. Blood Venous blood specimen / Unknown 01/08/2025 2:32 PM EDT 01/08/2025 2:32 PM EDT Luz Maria Washburn DO LAB BLOOD ORDERABLES Final R esult Performing Organization Address [facility] Co de Phone Number [facility] [address] [place] [phone] * (ABNORMAL) Basic Metabolic Panel (01/08/2025 2:32 PM EDT) Sodium 144 135 - 145 mmol/L [facility] Potassium 3.6 3.3 - 5.1 mmol/L [facility] Chloride 108 96 - 108 mmol/L [facility] Carbon Dioxide 29 22 - 29 mmol/L [facility] Anion Gap 11(L) 12 - 20 [facility] Urea Nitrogen (BUN) 11 9 - 16 mg/dL [facility] Creatinine, Serum 0.83 0.5 - 1.4 mg/dL [facility] Estimated Glomerular Filt Rate >60 [facility] Comment:Chronic Kidney Disea se: Estimated GFR < 60 mL/min/1.44k0Wyzmin Kidney Disease: Estimated GFR < 15 mL/min/1.73m2 Glucose 102 60 - 115 mg/dL [facility] Calcium 9.1 8.4 - 10.2 mg/dL [facility] Blood Venous blood specimen / Unknown 01/08/2025 2:32 PM EDT 01/08/2025 2:32 PM EDT Luz Maria Washburn DO LAB BLOOD ORDERABLES Final R esult Performing Organization Address [facility] Co de Phone Number [facility] [address] [place] [phone] * Albumin, Random Urine W/Creatinine (01/08/2025 2:30 PM EDT) Creatinine, Urine 287.04 mg/dL [facility] Microalbumin Urine 22.0 mg/L [facility] Microalbum Creatinine Ratio Ur 7.6 <30 ug/mg cr [facility] Comment:Albumin/Creatinine R atio Reference Ranges: Normal: < 30 ug/mg creatinine Microalbuminuria: 30 - 300 ug/mg creatinineClinical Albuminuria: > 300 ug/mg creatinine Urine (Urine, Random) 01/08/2025 2:30 PM EDT 01/08/2025 2:52 PM EDT us Luz Maria Washburn DO LAB URINE ORDERABLES Final R esult [facility] [address] [place] [phone] from Last 3 Months Insurance [facility] < [address] [place] [id number] Care Teams Over Hauler Helper Relationship Specialty Start Date End Date Luz Maria Washburn DO [address] [place] [phone] PCP - General Family Medicine 06/06/21
--- NOTE | 2025-02-19 07:33 | A.OFFVIS_ITS ---
Vital Signs 02/19/25 07:39 Height 6 ft 2 in Weight 185 lb BMI 23.7 BP 120/75 Blood Pressure Location Lt brachial Position Sitting Pulse 76 Intake Visit Reasons: Acid reflux and constipation Intake Note: Patient follow up for follow up Acid reflux and abdominal pain/matheus was 01/20/2024 Patient cc: acid reflux, constipation on and off, abdominal pain come and go and some swallowing problems. Environmental Services Supervisor Required: No Accompanied by: Self / Same As Patient Allergies penicillin G Allergy (Unknown, Verified 02/19/25 07:29) severe Penicillins (PENICILLINS) Allergy (Unknown, Verified 02/19/25 07:29) RASH Medication List - Last Reconciled 02/19/25 by Grace Sim MD amlodipine 5 mg PO DAILY ibuprofen 600 mg PO TID pantoprazole 20 mg PO DAILY HPI HPI Acid reflux and constipation: Details: 44 YM here for FU of GERD and IBS TODAY'S VISIT: Patient complains of: acid reflux, constipation on and off, abdominal pain come and go and some swallowing problems Missed EGD and Colon appt since he started a new job and unable to call and cancel since he is unable to use the phone while at work. 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 Pt complains of heartburn after taking OJ, ketchup, seasoning, pizza. Takes dicyclomine prn for abdominal pain three times a week - which is helping Has to eat slowly, he notes dysphagia to solids - feels he has a small throat. Pt denies symptoms of nausea, vomiting, change in appetite or weight. Notes intermittent diarrhea alternating with constipation. Notes loose BMs after he eats sugar (muffins, doughnuts and coffee) Denies recent change in bowel habits, black stools or rectal bleeding. Patient denies major cardiac or pulmonary problems. tells him he snores at night Denies problems with anesthesia in the past. Denies being on chronic anticoagulation. Patient is and has 4 children (3 sons and 1 daughter) Patient denies known family history of colon polyps, colon cancer or other GI malignancies. ? hx of colon polyps in his father and stomach cancer in his paternal GF at advanced age. 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 LABS IN [employer] : Reviewed - elevated bilirubin (predominantly indirect) suggestive of Gilbert's syndrome IMAGING STUDIES: 03/[address] SCAN SHOWED: No significant abnormality is seen to account for the patient's left lower quadrant pain. There has been no interval change seen when compared to the 06/30/2021 study which was also performed for evaluation of left lower quadrant pain. ENDOSCOPIC STUDIES: Pt denies having an upper endoscopy or colonoscopy in the past PAST GI HISTORY BY REVIEW OF MEDICAL RECORDS: 04/2023 PATIENT WAS SEEN IN THE GI CLINIC BY AMBER LOPEZ: 42-year-old male follows up with persistent acid reflux- pantoprazole with good -he has made dietary modifications with good response Trial of dicyclomine- no further abdominal pain Concerned about stool and cleanliness- after cleaning his healing stool, feels some irritation within colon however somewhat difficult to explain, He says he does not have hemorrhoids. He has extreme he anxious about what the underlying Cause may be. 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 Physical Exam Vital Signs: Last Vital Signs Pulse 76 02/19/25 07:39 BP 120/75 02/19/25 07:39 BMI result Body Mass Index 23.7 Const General: healthy appearing and no acute distress Nutritional Appearance: average body habitus Orientation/consciousness: patient oriented x3 Limitations: no limitations HEENT Head: Yes normal to inspection Ears: hearing grossly normal bilaterally Mouth: Normal oral and palatal mucosa present Eyes Sclerae: sclerae normal Pupils: Equal, round and reactive pupils present Neck Neck: Yes normal visual inspection Chest Chest palpation & inspection: normal inspection of the chest Resp Effort & Inspection: normal respiratory effort Auscultation: clear to auscultation bilaterally Cardio Palpation: normal PMI Rate: regular rate Rhythm: regular rhythm Heart sounds: S1 normal heart sound present, S2 normal heart sound present and no murmurs GI Palpation (GI): Soft to palpation, nontender, No hepatosplenomegaly present and Other GI palpation findings present (palpable stool in LLQ) Auscultation: normal bowel sounds Rectal Exam - Male: Yes deferred Skin General skin exam: no rashes or lesions noted Neuro General: patient oriented x3, gait normal and moves all extremities Cranial nerves: Yes Equal, round and reactive pupils present Psych Appearance: grossly normal Mental Status: mental status grossly normal Assessment & Plan Assessment & Plan (1) Acid reflux: Code(s): K21.9 - Gastro-esophageal reflux disease without esophagitis Category: Medical (2) IBS (irritable bowel syndrome): Comment: Anxiety, Code(s): K58.9 - Irritable bowel syndrome, unspecified Category: Medical (3) Change in bowel function: Comment: Anxiety, symptoms vague, stool changes consistentcy May likely be hemorrhoids, he does not want any further evaluation at this time Spent 10 minutes discussing colonoscopy-a indication -rare risks Code(s): R19.8 - Other specified symptoms and signs involving the digestive system and abdomen Category: Medical (4) LLQ pain: Comment: Pleasant, anxious 42-year-old Gent referred with 1 review abdominal pain Symptoms vague P/E-unremarkable HPUBT by pcp- pending Not taking prescribed medications Code(s): R10.32 - Left lower quadrant pain Category: Medical (5) Dysphagia, pharyngoesophageal phase: Code(s): R13.14 - Dysphagia, pharyngoesophageal phase Category: Medical Plan 44 YM here for FU of GERD and IBS Pt complains of heartburn after taking OJ, ketchup, seasoning, pizza. Trying to avoid sauces to prevent HB.and has to wait for the food to pass down. Continues to have dysphagia - solids and liquids. Sometimes food gets stuck Takes a PPI 3-4 times a week. Intermittent constipation and has a BM 2-3 times a week. Does not take any medications for constipation Drinks 3-4 bottles of water in a day. States does not take a lot of fibre in his diet. Elevated bilirubin (predominantly indirect) suggestive of Gilbert's syndrome Takes dicyclomine prn for abdominal pain three times a week - which is helping Has to eat slowly, he notes dysphagia to solids - feels he has a small throat. Pt denies symptoms of nausea, vomiting, change in appetite or weight. Notes intermittent diarrhea alternating with constipation. Notes loose BMs after he eats sugar (muffins, doughnuts and coffee) Denies recent change in bowel habits, black stools or rectal bleeding. Patient denies major cardiac or pulmonary problems. tells him he snores at night Denies problems with anesthesia in the past. Denies being on chronic anticoagulation. Patient was advised to schedule an upper endoscopy (GERD) and a colonoscopy (IBS with diarrhea and constipation). Both procedures and potential complications including bleeding, perforation, reaction to anesthetic and aspiration were reviewed with the patient. Booklet on colonoscopy prep was given to the patient and he was advised to watch the video Pt missed his appt for EGD and Colon since he was unable to take time off work On 01/07/24 @ 09:49 Grace Sim Wrote To Yuly Cooper (2) Pt missed his appt for EGD and Colon since he was unable to take time off work He is willing to reschedule. Orders: Referrals GI Procedure Notification K21.9 - Gastro-esophageal reflux disease without esophagitis, K58.9 - Irritable bowel syndrome, unspecified, R10.32 - Left lower quadrant pain, R13.14 - Dysphagia, pharyngoesophageal phase Medications: New polyethylene glycol 3350 (Miralax) Mix Miralax with 64 oz(8 cups) of Crystal light. Take 2 tablets of Dulcolax qt 12 pm. Wait to have your 1st bowel movement, then begin drinking Miralax. Drink a glass of Miralax every 10-15 minutes until you are finished. You will drink at least another 4 cups of clear liquid of your choice over the next 2 hours. Please drink as many clear liquids as possible You may have clear liquids up to four hours before your procedure 17 grams PO DAILY 238 grams 0RF colon prep 1 day sennosides-docusate sodium 8.6-50 mg (Senna with Docusate Sodium) Please take every other day at bedtime 1 tab-cap PO BEDTIME 60 tabs 2RF 60 days bisacodyl (Dulcolax (bisacodyl)) Take 4 tablets at 12 pm the day before colonoscopy appointment 20 mg (4 x 5 mg) PO ONCE 4 tabs 0RF colon prep 1 day Coding Level of Care Code Est Pt Level 4 (16516) Diagnoses Acid reflux K21.9 IBS (irritable bowel syndrome) K58.9 Change in bowel function R19.8 LLQ pain R10.32 Dysphagia, pharyngoesophageal phase R13.14 Time Spent (min) 21
[2025-02-19 07:39] VITALS: BP 120/75; PULSE 76; BMI 23.7
== END 2025-02-19 08:12 | disposition home or self-care (01) ==
LOC: HO.HGI 07:24
PROVIDERS: PCP Family Medicine; Visit Provider Internal Medicine Gastroenterology
DX: K21.9 Gastro-esophageal reflux disease without esophagitis (principal); K58.9 Irritable bowel syndrome, unspecified; R19.8 Other specified symptoms and signs involving the digestive system and abdomen; R10.32 Left lower quadrant pain; R13.14 Dysphagia, pharyngoesophageal phase
CPT/HCPCS: 99214

== ENCOUNTER → 2025-02-19 07:23 | Outpatient (BNVA) | payer OTHER, SELFPAY | PROVIDERS: PCP Family Medicine; Visit Provider Internal Medicine Gastroenterology | DX: K21.9 Gastro-esophageal reflux disease without esophagitis (principal); R19.8 Other specified symptoms and signs involving the digestive system and abdomen; R10.32 Left lower quadrant pain; R13.14 Dysphagia, pharyngoesophageal phase; K58.9 Irritable bowel syndrome, unspecified | CPT/HCPCS: 99212 ==

== ENCOUNTER 2025-02-26 09:56 | Outpatient (AMB) | payer OTHER, SELFPAY ==
[2025-02-26 10:07] VITALS: BP 126/88; PULSE 81; RESP 16; O2SAT 96; BMI 21.8
--- NOTE | 2025-02-26 10:07 | A.OFFVIS_ITS ---
Vital Signs 02/26/25 10:07 Height 6 ft 2 in Weight 170 lb BMI 21.8 BP 126/88 Blood Pressure Location Rt brachial Position Sitting Respiration 16 Pulse 81 Pulse Oximetry (%) 96 Intake Visit Reasons: ENP: [facility] [place] Voucher Clerk Required: No Allergies penicillin G Allergy (Unknown, Verified 02/19/25 07:29) severe Penicillins (PENICILLINS) Allergy (Unknown, Verified 02/19/25 07:29) RASH Medication List - Last Reconciled 02/26/25 by Theodora Vigil CNP amlodipine 5 mg PO DAILY bisacodyl (Dulcolax (bisacodyl)) 20 mg (4 x 5 mg) PO ONCE 1 day dicyclomine 10 mg PO QID ibuprofen 600 mg PO TID pantoprazole 20 mg PO DAILY polyethylene glycol 3350 (Miralax) 17 grams PO DAILY 1 day sennosides-docusate sodium 8.6-50 mg (Senna with Docusate Sodium) 1 tab-cap PO BEDTIME 60 days HPI Comments Details: Dick is a 44-year-old male patient with a past medical history of migraine headaches, mild persistent asthma, carpal tunnel syndrome, and chronic low back pain here today for headache evaluation. He reports experiencing migraines since the age of 19, with episodes occurring approximately 7 to 8 times per month. The migraines typically last for two to three days and are characterized by tension and pain that starts in the neck muscles and radiates to both sides of the head. The patient describes the pain as throbbing and sharp, often accompanied by nausea, dizziness, and sensitivity to light and sound. He has been prescribed amitriptyline for prevention but has not been taking it due to its sedative effects interfering with his work schedule. Sumatriptan is used as needed for acute migraine relief, which he reports as effective. He was given a prescription for topiramate 25mg daily but had no started it due to some confusion with dose scheduling. Headache characteristics: Time of onset: 19-years of age Location: Radiation:Radiates from neck up to the top of his head Positional component:No Character:Pulsing and charp Severity:Can reach 10/10 Duration: 2-3 days Frequency:7-8 days per month Acute aggravating factors: Acute relieving factors:Rest and dark rooms Associated symptoms: Nausea, dizziness, light sensitivity, and sound sensitivity Aura:None Headache triggers:Stress and work. Heavy lifting Other related background information: Sleep: Sleeps 6hours but this is disrupted. Does not feel well rested. Does snore Stressors:Works 3 jobs Hydration:Does not drink enough water but notes a feeling of bloating with water intake Caffeine intake: 3 times daily has a coffee Alcohol intake:None Substance use:None Tobacco use:None Last eye exam:Couple months ago Last dental visit: Does note clenching at night History of head injury:No Family history: Mother with history of migraine Past medication trials: Excedrine- Works well Sumatriptan- Works well Prior workup: None PFSH Medical History (Updated 02/26/25 @ 10:57 by Theodora Vigil CNP) Migraine Aneurysm artery, popliteal Asthma Surgical History History of hernia surgery Social History Household Members: Family Alcohol intake: never Patient Tobacco Use Status: Former Tobacco user Current occupational status: employed 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/ [employer] Review of Systems Const All systems reviewed & are unremarkable except as noted in HPI and below Physical Exam Vital Signs: Last Vital Signs Pulse 81 02/26/25 10:07 Resp 16 02/26/25 10:07 BP 126/88 02/26/25 10:07 Pulse Ox 96 02/26/25 10:07 BMI result Body Mass Index 21.8 Const General: cooperative, healthy appearing, comfortable and no acute distress Nutritional Appearance: well nourished Orientation/consciousness: patient oriented x3 Limitations: no limitations HEENT Head: Yes normal to inspection and Yes normocephalic Eyes General: appearance normal, both eyes and all related structures Visual Muir: normal visual muir by confrontation Alignment and Position: alignment normal Periorbital: periorbital findings normal Eyelids: Yes eyelids normal Conjunctivae: conjunctivae normal Sclerae: sclerae normal Back/Spine/Pelvis Other: Bilateral trapezius tightening. Large left upper trapezius trigger point and some smaller bilateral trapezius trigger points in the lower areas along each scapula. No profound occipital notch tenderness. Neuro General: patient oriented x3 and deep tendon reflexes 2+ bilaterally Cranial nerves: Yes CN's II-XII intact bilaterally and Yes Facial sensation intact/muscles of mastication intact Cognition (Neuro): normal cognition Gait exam (Neuro): Normal gait present Motor exam (neuro): 5/5 motor strength present throughout and no tremor noted Sensory Exam: double simultaneous stimulation for sensation normal Romberg Test: Negative Pupils: Normal pupillary reactivity/response: bilateral Psych Appearance: grossly normal Mental Status: mental status grossly normal Speech and movement: Normal speech and movement present and Clear speech present Affect: normal affect Attitude: cooperative Thought process: Normal thought process present Thought content: Normal thought content present Insight: Good insight present (Psych) Judgement: Good judgement present (Psych) Assessment & Plan Assessment & Plan (1) Chronic migraine without aura without status migrainosus, not intractable: Code(s): G43.709 - Chronic migraine without aura, not intractable, without status migrainosus Category: Medical (2) Myofascial pain: Code(s): M79.18 - Myalgia, other site Category: Medical (3) Trigger point of shoulder region: Code(s): M25.519 - Pain in unspecified shoulder Category: Medical Plan Dick is a 44-year-old male patient with a past medical history of migraine headaches, mild persistent asthma, carpal tunnel syndrome, and chronic low back pain here today for headache evaluation. Headaches are consistent with migraine. Based on his exam and history. I believe that muscle tension and poor sleep quality are likely both playing a role. He also does have a pre- existing family history. He has good effect with as-needed sumatriptan which he can continue. Before preventive measures, he was prescribed topiramate though has not yet started this. There was some confusion on how to take the medication. This was clarified in today's visit. He agrees to start topiramate 25 mg daily. We discussed different ways to approach the muscle component as noted on his exam. We talked about muscle relaxers, physical therapy, myofascial release techniques at home, or trigger point injections. He would ultimately like to stay away from adding on another oral medication and would like a trial of trigger point injections with myofascial release modalities at home including massage and heat. I will have him return to the clinic for trigger was injected once a prior authorization has been established. We will also perform an MRI of the brain without contrast for a baseline study to rule out any other structural causes for headache though less likely. - MRI brain w/o contrast -start topiramate as prescribed by primary care -continue sumatriptan as needed for acute therapy -trigger point injections in office with me next week -myofascial release modalities at home including massage and heat Coding Level of Care Code New Pt Level 4 (46274) Diagnoses Chronic migraine without aura without status migrainosus, not intractable G43.709 Myofascial pain M79.18 Trigger point of shoulder region M25.519
--- OUTSIDE RECORDS SUMMARY | 2025-02-26 10:55 | XMS_ITS | Encounter Summary ---
Author Organization [employer] Address [address] [facility] [address] [place] [address] Care Team Providers Care Cerner Analyst Name Role Phone Luz Maria Washburn DO Primary Care Provider + [phone] Reason for Visit * Reason Onset Date Comments Appointment Request 06/25/2023 Encounter Details Date Type Department Care Team ([facility] Contact Info) Description 06/25/[address] [facility] [address] [place], [place] [phone] Luz Maria Washburn DO [address] [place], [place] [phone] Appointment Request Social History Tobacco Use Types [...] documented as of this encounter Care Teams Cerner Analyst Relationship Specialty Start Date End Date Luz Maria Washburn DO [address] [place] [address] PCP - General Family Medicine 06/06/21 documented as of this encounter
--- OUTSIDE RECORDS SUMMARY | 2025-02-26 10:55 | XMS_ITS | Encounter Summary ---
Author Organization [employer] Address [address] [place] [address] [address] [place] [address] Care Team Providers Care Head Of Sales And Marketing Name Role Phone Luz Maria Washburn DO Primary Care Provider + [phone] Reason for Visit * Reason Comments Med Change Request Encounter Details Date Type Department Care Team ([facility] Contact Info) Description 06/11/2022 Refill [facility] [address] [place], [place] [phone] Luz Maria Washburn DO [address] [place], [place] [phone] Asthma, unspecified asthma severity, unspecified whether complicated, [...] persistent documented in this encounter Care Teams Head Of Sales And Marketing Relationship Specialty Start Date End Date Luz Maria Washburn DO [address] [place], [place] [phone] PCP - General Family Medicine 06/06/21 documented as of this encounter
--- OUTSIDE RECORDS SUMMARY | 2025-02-26 10:55 | XMS_ITS | Clinical Summary ---
Author Organization [employer] Address [address] [facility] [address] [place] [address] Care Team Providers Care Automatic Folder Seamer Name Role Phone CheikhLuz Maria white Primary Care Provider + [phone] Allergies Active Allergy Reactions Criticality Noted Date [...] -referral placed to Neurology 03/09/24 -referred to [facility] 03/09/24 -given work note. -ER [...] Description 02/02/2025 2:20 PM EDT Office Visit [facility] [address] [place] [phone] Courtney Pinto NP Allergic reaction, initial encounter (Primary Dx) 02/02/2025 Travel 01/09/[address] [address] Luz Maria Washburn DO Lab Add On 12/12/[address] [address] Luz Maria Washburn DO Durable Medical Equipment ([facility] One [facility]: Nebulizer.) 12/06/2024 10:45 AM EDT Office Visit [address] [address] Luz Maria Washburn DO Essential hypertension (Primary Dx); Chronic migraine; Mild intermittent asthma without complication; Chronic gastroesophageal reflux disease; Healthcare maintenance; Other migraine without status migrainosus, not intractable 12/06/2024 Travel 11/29/[address] [address] Luz Maria Washburn DO Chart Prep 11/27/2024 Patient Outreach [address] [phone] Luz Maria Washburn DO Pre-visit Planning ((Unable [...] Vitamin D 25-OH Total 25.1(L) >30 ng/mL [facility] Comment: Health Based Reference Values*< 20 ng/mL [id number] ng/mL Insufficient> 30 ng/mL Sufficient*Olivia STOREY. N [...] DO LAB BLOOD ORDERABLES Final R esult [facility] [address] [place] [phone] * (ABNORMAL) CBC auto differential (01/08/2025 2:32 PM EDT) Neutrophils Percent Auto 65.3 45 - 73 % [facility] Imm Gran Pct Auto 0.5(H) 0.0 - 0.4 % [facility] Lymphocytes Percent Auto 24.0 20 - 40 % [facility] Monocytes Percent Auto 6.8 2 - 11 % [facility] Eosinophils Percent Auto 2.6 0 - 4 % [facility] Basophils Percent Auto 0.8 0 - 2 % [facility] Neutrophils Absolute Auto 2.5 2.0 - 8.3 x10*3/uL [facility] Imm Gran Abs Auto 0.02 0.00 - 0.03 X10*3/uL [facility] Lymphocytes Absolute Auto 0.9(L) 1.2 - 4.9 X10*3/uL [facility] Monocytes Absolute Auto 0.3 0.1 - 1.2 X10*3/uL [facility] Eosinophils Absolute Auto 0.1 0.0 - 0.4 X10*3/uL [facility] Basophils Absolute Auto 0.0 0.0 - 0.2 X10*3/uL [facility] Blood Venous blood specimen / Unknown 01/08/2025 2:32 PM EDT 01/08/2025 2:32 PM EDT Luz Maria Washburn DO LAB BLOOD ORDERABLES Final R esult Performing Organization Address City/[facility]/ZIP Co de Phone Number [facility] [address] [place] [address] [phone] * Hepatitis C Antibody with Reflex to HCV, RNA, Quantitative, Real-Time PCR (01/08/2025 2:32 PM EDT) Hepatitis C Antibody Nonreactive Nonreactive [facility] Comment:Antibodies to HCV no t detected; does not exclude early acuteHCV infection. Blood Venous blood specimen / Unknown 01/08/2025 2:32 PM EDT 01/08/2025 2:32 PM EDT Luz Maria Washburn LAB BLOOD ORDERABLES Final R esult Performing Organization Address [facility]/ZIP Co de Phone Number [facility] [address] [place] [phone] * Hepatitis A Antibody, Total (01/08/2025 2:32 PM EDT) Hepatitis A Antibody IgG Nonreactive Nonreactive [facility] Blood Venous blood specimen / Unknown 01/08/2025 2:32 PM EDT 01/08/2025 2:32 PM EDT Luz Maria Washburn LAB BLOOD ORDERABLES Final R esult Performing Organization Address City/[facility] Co de Phone Number [facility] [address] [place] [address] [phone] * Hepatitis B surface antigen, EIA (01/08/2025 2:32 PM EDT) Hepatitis B Surface Ag Negative Negative [facility] Blood Venous blood specimen / Unknown 01/08/2025 2:32 PM EDT 01/08/2025 2:32 PM EDT Luz Maria Washburn DO LAB BLOOD ORDERABLES Final R esult Performing Organization Address City/[facility]/ZIP Co de Phone Number [facility] [address] [place] [phone] * Hepatitis B Core Antibody, Total (01/08/2025 2:32 PM EDT) Hepatitis B Core Antibody Nonreactive Nonreactive [facility] Blood Venous blood specimen / Unknown 01/08/2025 2:32 PM EDT 01/08/2025 2:32 PM EDT Luz Maria Washburn DO LAB BLOOD ORDERABLES Final R esult Performing Organization Address [facility] Co de Phone Number [facility] [address] [place] [phone] * RPR (Monitor) with Reflex to??Titer (01/08/2025 2:32 PM EDT) RPR (Monitor) w/Refl Titer NON-REACTI VE NON-REACT ROSMERY [facility] Comment:THIS TEST WAS PERFOR MED AT:[employer] [place] [phone] PETERS MD Rapid Plasma Reagin Ab Titer TNP [facility] Blood Venous blood specimen / Unknown 01/08/2025 2:32 PM EDT 01/08/2025 2:32 PM EDT Luz Maria Washburn DO LAB BLOOD ORDERABLES Final R esult Performing Organization Address [facility]/ZIP Co de Phone Number [facility] [address] [place] [phone] * HIV-1/2 Antigen and Antibodies, Fourth Generation, with Reflexes (01/08/2025 2:32 PM EDT) [facility] HIV AB/AG Nonreactive Nonreactive [facility] Comment:HIV-1 p24 Ag and/or HIV-1/HIV-2 Ab not detected.A test result that is nonreactive does not exclude thepossibility of exposure to or infection with HIV-1 and/orHIV-2. Nonreactive results in this assay for individualswith prior exposure to HIV-1 and/or HIV-2 may be due toantigen and antibody levels that are below the limit ofdetection of this assay.The [employer] HIV Ag/Ab Combo assay result andsupplemental assay results should be interpreted inconjunction with the patient's clinical presentation,history and other laboratory results. If the results areinconsistent with clinical evidence, additional testing issuggested to confirm the result. Blood Venous blood specimen / Unknown 01/08/2025 2:32 PM EDT 01/08/2025 2:32 PM EDT Luz Maria Washburn Tabtor LAB BLOOD ORDERABLES Final R esult Performing Organization Address City/[facility]/ZIP Co de Phone Number [facility] [address] [place] [address] [phone] * Hepatitis B Surface Antibody, Qualitative (01/08/2025 2:32 PM EDT) [facility] ~Hepatitis B Surface Antibody NONREACTIVE Nonreactive [facility] Comment:Nonreactive: < 8.00 mIU/mL Blood Venous blood specimen / Unknown 01/08/2025 2:32 PM EDT 01/08/2025 2:32 PM EDT Luz Maria Washburn Tabtor LAB BLOOD ORDERABLES Final R esult Performing Organization Address City/[facility] Co de Phone Number [facility] [address] [place] [phone] * (ABNORMAL) CBC (01/08/2025 2:32 PM EDT) [facility] White Blood Count 3.9(L) 4.8 - 10.8 X10*3/uL [facility] Red Blood Count 4.88 4.60 - 5.80 X10*6/uL [facility] Hemoglobin 15.1 14.0 - 18.0 g/dl [facility] Hematocrit 43.0 42.0 - 52.0 % [facility] Mean Corpuscular Volume 88.1 80.0 - 98.0 fL [facility] Mean Corpuscular Hemoglobin 30.9 27.0 - 33.0 pg [facility] Mean Corpuscular HGB Conc 35.1 31.0 - 36.0 g/dl [facility] Red Cell Distribution Width 12.6 11.0 - 16.0 % [facility] Platelet Count 187 160 - 400 X10*3/uL [facility] Mean Platelet Volume 9.1(L) 9.4 - 12.4 fL [facility] NRBC Pct Auto 0.0 0.0 - 0.2 /100WBC [facility] NRBC Abs Auto 0.000 0.0 - 0.012 X10*3/uL [facility] Blood Venous blood specimen / Unknown 01/08/2025 2:32 PM EDT 01/08/2025 2:32 PM EDT Luz Maria Washburn DO LAB BLOOD ORDERABLES Final R esult [facility] [address] [place] [phone] * TSH (01/08/2025 2:32 PM EDT) Thyroid Stimulating Hormone 0.78 0.32 - 4.0 uIU/mL [facility] Comment:TSH 3rd Generation ( [facility]) Blood Venous blood specimen / Unknown 01/08/2025 2:32 PM EDT 01/08/2025 2:32 PM EDT Luz Maria Washburn DO LAB BLOOD ORDERABLES Final R esult Performing Organization Address [facility]/ZIP Co de Phone Number [facility] [address] [place] [phone] * T4, Free (01/08/2025 2:32 PM EDT) Free T4 (Free Thyroxine) 0.93 0.71 - 1.85 ng/dL [facility] Blood Venous blood specimen / Unknown 01/08/2025 2:32 PM EDT 01/08/2025 2:32 PM EDT Luz Maria Washburn Tabtor LAB BLOOD ORDERABLES Final R esult Performing Organization Address [facility] Co de Phone Number [facility] [address] [place] [phone] * Hemoglobin A1c (01/08/2025 2:32 PM EDT) Pathologist [facility] Hemoglobin A1c 5.6 <6.0 % [facility] Comment:Hemoglobin A1C Refer ence Range Adults: 4.8 - 6.0 % Non diabetic: < 6.0 % Goal: < 7.0 %Additional Action Suggested: > 8.0 %Note: Hemoglobin A1c results are invalid for patients with abnormal amounts of HbF. Blood transfusions may impact the HbA1c concentration in the patient sample. Estimated Average Glucose 114 mg/dL [facility] Comment:eAG = Estimated ave rage glucose which is %A1C expressed asaverage glucose, using the formula of the [id number]-RkxrkibPkxkwgw Glucose study (ADAG), Diabetes Care, Vol.31,#8,Dec. 2007 Blood Venous blood specimen / Unknown 01/08/2025 2:32 PM EDT 01/08/2025 2:32 PM EDT Luz Maria Washburn Tabtor LAB BLOOD ORDERABLES Final R esult Performing Organization Address [facility] Co de Phone Number [facility] [address] [place] [phone] * (ABNORMAL) Hepatic Function Panel (01/08/2025 2:32 PM EDT) Bilirubin, Total 2.2(H) 0.0 - 1.0 mg/dL [facility] Comment:Slight Icterus. Bilirubin, Direct 0.5 0.0 - 0.5 mg/dL [facility] Comment:Slight Icterus. Aspartate Amino Transferase 26 5 - 37 U/L [facility] Alanine Aminotransferase 21 0 - 40 U/L [facility] Total Protein 7.3 6.5 - 8.0 g/dL [facility] Albumin Level 4.7 3.5 - 5.0 g/dL [facility] Alkaline Phosphatase 74 39 - 117 U/L [facility] Blood Venous blood specimen / Unknown 01/08/2025 2:32 PM EDT 01/08/2025 2:32 PM EDT us Luz Maria Washburn DO LAB BLOOD ORDERABLES Final R esult [facility] [address] [place] [phone] * Lipid Panel, Standard (01/08/2025 2:32 PM EDT) Triglycerides 47 <150 mg/dL [facility] Comment:Desirable Triglyceri de: less than 150 mg/dLBorderline High Triglyceride 150-199 mg/dLHigh Triglyceride: 200-499 mg/dLVery High Triglyceride: greater than or equal to 5OO mg/dL Cholesterol 138 <200 mg/dL [facility] Comment:Desirable Cholestero l: less than 200 mg/dLBorderline High Cholesterol: 200-239 mg/dLHigh Cholesterol: greater than 239 mg/dL LDL Cholesterol Calculated 74 <100 mg/dL [facility] Comment:Desirable LDL: less than 100 mg/dLNear Optimal/Above Optimal LDL: 110- 129 mg/dLBorderline High LDL: 130-159 mg/dLHigh LDL: 160-189 mg/dLVery High LDL: greater than or equal to 190 mg/dL HDL Cholesterol 55 >40 mg/dL [facility] Comment:Desirable HDL: great er than 40 mg/dL Note: This HDL assay may give artificially low results in patients with liver disease. Blood Venous blood specimen / Unknown 01/08/2025 2:32 PM EDT 01/08/2025 2:32 PM EDT Luz Maria Washburn DO LAB BLOOD ORDERABLES Final R esult Performing Organization Address City/[facility] Co de Phone Number [facility] [address] [place] [phone] * (ABNORMAL) Basic Metabolic Panel (01/08/2025 2:32 PM EDT) Sodium 144 135 - 145 mmol/L [facility] Potassium 3.6 3.3 - 5.1 mmol/L [facility] Chloride 108 96 - 108 mmol/L [facility] Carbon Dioxide 29 22 - 29 mmol/L [facility] Anion Gap 11(L) 12 - 20 [facility] Urea Nitrogen (BUN) 11 9 - 16 mg/dL [facility] Creatinine, Serum 0.83 0.5 - 1.4 mg/dL [facility] Estimated Glomerular Filt Rate >60 [facility] Comment:Chronic Kidney Disea se: Estimated GFR < 60 mL/min/1.77g4Mxclim Kidney Disease: Estimated GFR < 15 mL/min/1.73m2 Glucose 102 60 - 115 mg/dL [facility] Calcium 9.1 8.4 - 10.2 mg/dL [facility] Blood Venous blood specimen / Unknown 01/08/2025 2:32 PM EDT 01/08/2025 2:32 PM EDT Luz Maria Washburn DO LAB BLOOD ORDERABLES Final R esult Performing Organization Address [facility] Co de Phone Number [facility] [address] [place] [address] [phone] * Albumin, Random Urine W/Creatinine (01/08/2025 2:30 PM EDT) Creatinine, Urine 287.04 mg/dL [facility] Microalbumin Urine 22.0 mg/L [facility] Microalbum Creatinine Ratio Ur 7.6 <30 ug/mg cr [facility] Comment:Albumin/Creatinine R atio Reference Ranges: Normal: < 30 ug/mg creatinine Microalbuminuria: 30 - 300 ug/mg creatinineClinical Albuminuria: > 300 ug/mg creatinine Urine (Urine, Random) 01/08/2025 2:30 PM EDT 01/08/2025 2:52 PM EDT us Luz Maria Washburn DO LAB URINE ORDERABLES Final R esult [facility] [address] [place] [phone] from Last 3 Months Insurance [facility] [place] < [address] [id number] Care Teams Automatic Folder Seamer Relationship Specialty Start Date End Date Luz Maria Washburn DO [address] [place] [phone] PCP - General Family Medicine 06/06/21
--- OUTSIDE RECORDS SUMMARY | 2025-02-26 10:55 | XMS_ITS | Encounter Summary ---
Author Organization [employer] Address [address] [facility] [address] [place] [address] Care Team Providers Care Roll Operator Name Role Phone Luz Maria Washburn DO Primary Care Provider + [phone] Reason for Visit * Reason Onset Date Comments Referral 06/25/2023 Encounter Details Date Type Department Care Team ([facility] Contact Info) Description 06/25/2023 Telephone [facility] [address], [place] [phone] Luz Maria Washburn DO [address] [place], [place] [phone] Referral Social History Tobacco Use Types Packs/Day [...] 3:05 PM EDT Tc from Felicitas with [facility] requesting a call back in regards below message. Please contact Felicitas at [phone] * Telephone Encounter - Tessy Smith RN - 06/29/2023 3:27 PM EST Per Tawnya Rodrigez: Can I please get some assistance in getting number and fax. I have tried searching in [employer] and found nothing. Per [employer], phone number is [phone]. RN also called office and obtained fax number [phone]. * Telephone Encounter - Tessy Smith RN - 06/28/2023 10:42 AM EST Upon chart review, pt was referred to [facility] in [place] 03/22/2023. TC placed to pt [phone] in regards to below message. Pt reports he does NOT want to be seen at the chiropractic office in [place]. Pt reports he does not like the location. Pt would like to be referred to: [facility] [address] [place] [address] new referral to new location. Thank you! * Telephone Encounter - Chitra Resendez - 06/25/2023 3:21 PM EST TC from felicitas with [facility] states pt is requesting new referral DATE: n/a TIME: n/a Location: [address] [place] [address] Facility: [facility] Type of Specialist: Chiropractor DX: chronic back pain documented in this encounter Plan of Treatment Not on file documented as of this encounter Visit Diagnoses Not on filedocumented in this encounter Additional Health Concerns Assessment Noted Time PHQ-9 Depression Total Score: 2 03/22/20 23 10:33 AM EDT documented as of this encounter Care Teams Roll Operator Relationship Specialty Start Date End Date Luz Maria Washburn DO [address] [place] [address] PCP - General Family Medicine 06/06/21 documented as of this encounter
== END 2025-02-26 10:59 | disposition home or self-care (01) ==
LOC: HO.HSM 09:56
PROVIDERS: PCP Family Medicine; Visit Provider Nurse Practitioner
DX: G43.709 Chronic migraine without aura, not intractable, without status migrainosus (principal); M79.18 Myalgia, other site; M25.519 Pain in unspecified shoulder
CPT/HCPCS: 99204

== ENCOUNTER → 2025-02-26 09:56 | Outpatient (BNVA) | payer OTHER, SELFPAY | PROVIDERS: PCP Family Medicine; Visit Provider Nurse Practitioner | DX: G43.709 Chronic migraine without aura, not intractable, without status migrainosus (principal); M79.18 Myalgia, other site; M25.512 Pain in left shoulder | CPT/HCPCS: 99202 ==

== ENCOUNTER 2025-03-13 23:23 | Emergency (ER) | payer MEDICARE, OTHER, SELFPAY ==
[2025-03-13 23:28] VITALS: BP 138/85; PULSE 85; RESP 16; O2SAT 97; BMI 24.1
--- NOTE | 2025-03-14 01:50 | ED.GENADULT ---
HPI - General Adult General Chief complaint: Wound/Laceration Stated complaint: finger lac Time Seen by Provider: 03/14/25 01:15 Source: patient, RN notes reviewed and old records reviewed Mode of arrival: ambulatory Limitations: no limitations History of Present Illness ED Provider: Rupert CHAMPION narrative: 44-year-old male presents for evaluation of a laceration to his left thumb. He was trying to cut a zip tie with a new knife. He accidentally cut the finger pad of his left thumb with a knife. He has 4/10 pain. Bleeding controlled. He is unsure of his last tetanus Related Data Home Medications ?Medication ?Instructions ?Recorded ?Confirmed pantoprazole 20 mg tablet,delayed 20 mg PO DAILY 03/24/23 02/26/25 release amlodipine 5 mg tablet 5 mg PO DAILY 02/19/25 02/26/25 dicyclomine 10 mg capsule 10 mg PO QID 02/26/25 02/26/25 Previous Rx's ?Medication ?Instructions ?Recorded ibuprofen 600 mg tablet 600 mg PO TID #30 tabs 06/28/21 sennosides 8.6 mg-docusate sodium 1 tab-cap PO BEDTIME 60 days #60 02/19/25 50 mg tablet (Senna with Docusate tabs Sodium) bisacodyl 5 mg tablet,delayed 20 mg (4 x 5 mg) PO ONCE colon 02/22/25 release (Dulcolax (bisacodyl)) prep 1 day #4 tabs polyethylene glycol 3350 17 17 g PO DAILY colon prep 1 day 02/22/25 gram/dose oral powder (Miralax) #238 grams Allergies Allergy/AdvReac Type Severity Reaction Status Date / Time penicillin G Allergy Unknown severe Verified 03/13/25 23:29 Penicillins (PENICILLINS) Allergy Unknown RASH Verified 03/13/25 23:29 Review of Systems Constitutional: Constitutional: Denies body ache(s), Denies chills, Denies fever(s) and Denies headache(s) Eyes: Eyes: Denies blurry vision ENT: Denies dizziness and Denies headache(s) Cardiovascular: Cardiovascular: Denies chest pain Integumentary/Breasts: Skin/Breast: Denies erythema and Reports wounds Neurologic: Denies dizziness and Denies headache(s) [facility] Past Medical History Medical History (Updated 03/14/25 @ 02:33 by Isai Emery) Migraine Aneurysm artery, popliteal Asthma Surgical History History of hernia surgery Social History Social History Household Members: Family Alcohol intake: never Patient Tobacco Use Status: Former Tobacco user Advance Directives: No Advance Directives Information Provided: Yes Do you have a plan to hurt others: No Plan Current occupational status: employed 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 Physical Exam ED Vital Signs: Vital Signs - 24 hr 03/13/25 23:28 Pulse Rate 85 Respiratory Rate 16 Blood Pressure 138/85 Pulse Oximetry 97 Oxygen Delivery Method Room Air BMI result Body Mass Index 24.1 Const General: healthy appearing, comfortable, no acute distress, alert and awake Nutritional Appearance: well nourished Orientation/consciousness: patient oriented x3 HENMT Head: Yes normocephalic and Yes atraumatic Eyes Eyelids: Yes eyelids normal Conjunctivae: conjunctivae normal Sclerae: sclerae normal Corneas: corneas normal Pupils: Equal, round and reactive pupils present EOM: EOMs intact bilaterally Neck Neck: Yes full ROM Resp Effort & Inspection: normal respiratory effort, able to speak in complete sentences and not labored Cardio Rate: regular rate Rhythm: regular rhythm GI Inspection: No distended Palpation (GI): Soft to palpation, not firm, nontender, no guarding and not rigid Skin Other: 2 cm linear, partial-thickness laceration to the finger pad of the left 1st digit. No active bleeding. General skin exam: elasticity normal Neuro General: patient oriented x3 Cranial nerves: Yes Equal, round and reactive pupils present and Yes Bilaterally intact EOM present Cognition (Neuro): normal cognition Medications Administered Discontinued Medications Generic Name Dose Route Start Last Admin Trade Name Freq PRN Reason Stop Dose Admin Diphtheria/Tetanus/Acell Pertussis 0.5 ml 03/14/25 01:39 03/14/25 02:34 Diphth,Pertus(Acell),Tet Adult 0.5 Ml Syringe IM 03/14/25 01:40 0.5 ml .ONCE ONE Administration Lidocaine HCl 5 ml 03/14/25 01:38 03/14/25 02:35 Lidocaine Hcl 1 % Mpf 5 Ml Vial INFILTRATI 03/14/25 01:39 5 ml ONCE ONE Administration Procedures Laceration Laceration 1: Site: hand Side (If applicable): left Size (cm): 2 Description: linear Depth: simple, single layer Local Anesthetic: lidocaine 1% Amount of anesthesia used (mL): 3 Pre-repair: wound explored, irrigated extensively and deep structures intact Skin layer closed with: nylon Size (cm): 4-0 Number of sutures: 7 Technique: simple, interrupted Medical Decision Making Medical Decision Making MDM Narrative: 44-year-old male presents for evaluation of accidental laceration to his left thumb. Wound is well approximated bleeding is controlled. He is able to flex and extend the digit. No concern for tendon laceration on the flexor surface. The patient's tetanus will be updated, see procedure note for wound repair Differential Diagnosis Differential Diagnoses: The differential diagnosis associated with the presentation includes Laceration Skin tear Puncture wound Abrasion Tendon laceration less likely Discharge Plan Discharge Clinical Impression: Finger laceration Patient Disposition: Home, Self-Care Instructions: Finger Laceration (ED) Additional Instructions: You had 7 sutures placed to your thumb. Keep the area clean and dry pain These can be removed in 10-14 days pain Your tetanus was updated Prescriptions: No Action ibuprofen 600 mg tablet 600 mg PO TID Qty: 30 0RF amlodipine 5 mg tablet 5 mg PO DAILY sennosides-docusate sodium [Senna with Docusate Sodium] 8.6-50 mg tablet 1 tab-cap PO BEDTIME 60 Days Qty: 60 2RF Rx Instructions: Please take every other day at bedtime bisacodyl [Dulcolax (bisacodyl)] 5 mg tablet,delayed release (DR/EC) 20 mg PO ONCE 1 Days Qty: 4 0RF Rx Instructions: Take 4 tablets at 12 pm the day before colonoscopy appointment polyethylene glycol 3350 [Miralax] 17 gram/dose powder 17 g PO DAILY 1 Days Qty: 238 0RF Rx Instructions: Mix Miralax with 64 oz(8 cups) of Crystal light. Take 2 tablets of Dulcolax qt 12 pm. Wait to have your 1st bowel movement, then begin drinking Miralax. Drink a glass of Miralax every 10-15 minutes until you are finished. You will drink at least another 4 cups of clear liquid of your choice over the next 2 hours. Please drink as many clear liquids as possible You may have clear liquids up to four hours before your procedure pantoprazole 20 mg tablet,delayed release (DR/EC) 20 mg PO DAILY dicyclomine 10 mg capsule 10 mg PO QID Print Language: [place]
--- OUTSIDE RECORDS SUMMARY | 2025-03-14 01:57 | XMS_ITS | Clinical Summary ---
Author Organization [employer] Address [address] [facility] 7t [place] [address] Care Team Providers Care Family Centered Specialist Name Role Phone CheikhLuz Maria white Primary Care Provider + [phone] Allergies Active Allergy Reactions Criticality Noted Date [...] -referral placed to Neurology 03/09/24 -referred to [facility] 03/09/24 -given work note. -ER [...] Description 02/02/2025 2:20 PM EDT Office Visit [facility] [address] [place], [place] [phone] Courtney Pinto NP Allergic reaction, initial encounter (Primary Dx) 02/02/2025 Travel 01/09/2025 Telephone [facility] [address] [place] [address] Luz Maria Washburn DO Lab Add On 12/12/2024 Telephone [facility] [address] [place], [place] [phone] Luz Maria Washburn DO Durable Medical Equipment ([facility] One Care: Nebulizer.) from Last 3 Months Immunizations Immunization Administration [...] 75+ series) 2057 IPV Vaccines Completed 02/28/1987, 06/0 05/1984, 09/29/1983, Additional history exists Hepatitis B [...] Vitamin D 25-OH Total 25.1(L) >30 ng/mL [facility] Comment: Health Based Reference Values*< 20 ng/mL [id number] ng/mL Insufficient> 30 ng/mL Sufficient*lOivia STOREY. N Engl J Med. 2007;357:266-280There is [...] DO LAB BLOOD ORDERABLES Final R esult [facility] [address] [place] [phone] * (ABNORMAL) CBC auto differential (01/08/2025 2:32 PM EDT) Neutrophils Percent Auto 65.3 45 - 73 % [facility] Imm Gran Pct Auto 0.5(H) 0.0 - 0.4 % [facility] Lymphocytes Percent Auto 24.0 20 - 40 % [facility] Monocytes Percent Auto 6.8 2 - 11 % [facility] Eosinophils Percent Auto 2.6 0 - 4 % [facility] Basophils Percent Auto 0.8 0 - 2 % [facility] Neutrophils Absolute Auto 2.5 2.0 - 8.3 x10*3/uL [facility] Imm Gran Abs Auto 0.02 0.00 - 0.03 X10*3/uL [facility] Lymphocytes Absolute Auto 0.9(L) 1.2 - 4.9 X10*3/uL [facility] Monocytes Absolute Auto 0.3 0.1 - 1.2 X10*3/uL [facility] Eosinophils Absolute Auto 0.1 0.0 - 0.4 X10*3/uL [facility] Basophils Absolute Auto 0.0 0.0 - 0.2 X10*3/uL [facility] Blood Venous blood specimen / Unknown 01/08/2025 2:32 PM EDT 01/08/2025 2:32 PM EDT us Luz Maria Washburn DO LAB BLOOD ORDERABLES Final R esult [facility] [address] [place] [phone] * Hepatitis C Antibody with Reflex to HCV, RNA, Quantitative, Real-Time PCR (01/08/2025 2:32 PM EDT) Pathologist [facility] Hepatitis C Antibody Nonreactive Nonreactive [facility] Comment:Antibodies to HCV no t detected; does not exclude early acuteHCV infection. Blood Venous blood specimen / Unknown 01/08/2025 2:32 PM EDT 01/08/2025 2:32 PM EDT Luz Maria Washburn LAB BLOOD ORDERABLES Final R esult Performing Organization Address City/[facility]/ZIP Co de Phone Number [facility] [address] [place] [phone] * Hepatitis A Antibody, Total (01/08/2025 2:32 PM EDT) Hepatitis A Antibody IgG Nonreactive Nonreactive [facility] Blood Venous blood specimen / Unknown 01/08/2025 2:32 PM EDT 01/08/2025 2:32 PM EDT Luz Maria Maddison LAB BLOOD ORDERABLES Final R esult Performing Organization Address [facility] Co de Phone Number [facility] [address] [place] [phone] * Hepatitis B surface antigen, EIA (01/08/2025 2:32 PM EDT) Hepatitis B Surface Ag Negative Negative [facility] Blood Venous blood specimen / Unknown 01/08/2025 2:32 PM EDT 01/08/2025 2:32 PM EDT Luz Maria Washburn LAB BLOOD ORDERABLES Final R esult Performing Organization Address [facility] Co de Phone Number [facility] [address] [place] [phone] * Hepatitis B Core Antibody, Total (01/08/2025 2:32 PM EDT) Hepatitis B Core Antibody Nonreactive Nonreactive [facility] Blood Venous blood specimen / Unknown 01/08/2025 2:32 PM EDT 01/08/2025 2:32 PM EDT Luz Maria Washburn [employer] LAB BLOOD ORDERABLES Final R esult Performing Organization Address City/[facility]/ZIP Co de Phone Number [facility] [address] [place] [phone] * RPR (Monitor) with Reflex to??Titer (01/08/2025 2:32 PM EDT) RPR (Monitor) w/Refl Titer NON-REACTI VE NON-REACT ROSMERY [facility] Comment:THIS TEST WAS PERFOR MED AT:[facility] [place] [id number] PETERS MD Rapid Plasma Reagin Ab Titer TNP [facility] Blood Venous blood specimen / Unknown 01/08/2025 2:32 PM EDT 01/08/2025 2:32 PM EDT Luz Maria Washburn LAB BLOOD ORDERABLES Final R esult Performing Organization Address [facility] Co de Phone Number [facility] [address] [place] [phone] * HIV-1/2 Antigen and Antibodies, Fourth Generation, with Reflexes (01/08/2025 2:32 PM EDT) HIV AB/AG Nonreactive Nonreactive [facility] Comment:HIV-1 p24 Ag and/or HIV-1/HIV-2 Ab not detected.A test result that is nonreactive does not exclude thepossibility of exposure to or infection with HIV-1 and/orHIV-2. Nonreactive results in this assay for individualswith prior exposure to HIV-1 and/or HIV-2 may be due toantigen and antibody levels that are below the limit ofdetection of this assay.The [employer] HIV Ag/Ab Combo assay result andsupplemental assay results should be interpreted inconjunction with the patient's clinical presentation,history and other laboratory results. If the results areinconsistent with clinical evidence, additional testing issuggested to confirm the result. Blood Venous blood specimen / Unknown 01/08/2025 2:32 PM EDT 01/08/2025 2:32 PM EDT Luz Maria Washburn LAB BLOOD ORDERABLES Final R esult Performing Organization Address [facility]/ZIP Co de Phone Number [facility] [address] [place] [phone] * Hepatitis B Surface Antibody, Qualitative (01/08/2025 2:32 PM EDT) Pathologist [facility] ~Hepatitis B Surface Antibody NONREACTIVE Nonreactive [facility] Comment:Nonreactive: < 8.00 mIU/mL Blood Venous blood specimen / Unknown 01/08/2025 2:32 PM EDT 01/08/2025 2:32 PM EDT Luz Maria Maddison LAB BLOOD ORDERABLES Final R esult Performing Organization Address [facility] Co de Phone Number [facility] [address] [place] [phone] * (ABNORMAL) CBC (01/08/2025 2:32 PM EDT) [facility] White Blood Count 3.9(L) 4.8 - 10.8 X10*3/uL [facility] Red Blood Count 4.88 4.60 - 5.80 X10*6/uL [facility] Hemoglobin 15.1 14.0 - 18.0 g/dl [facility] Hematocrit 43.0 42.0 - 52.0 % [facility] Mean Corpuscular Volume 88.1 80.0 - 98.0 fL [facility] Mean Corpuscular Hemoglobin 30.9 27.0 - 33.0 pg [facility] Mean Corpuscular HGB Conc 35.1 31.0 - 36.0 g/dl [facility] Red Cell Distribution Width 12.6 11.0 - 16.0 % [facility] Platelet Count 187 160 - 400 X10*3/uL [facility] Mean Platelet Volume 9.1(L) 9.4 - 12.4 fL [facility] NRBC Pct Auto 0.0 0.0 - 0.2 /100WBC [facility] NRBC Abs Auto 0.000 0.0 - 0.012 X10*3/uL [facility] Blood Venous blood specimen / Unknown 01/08/2025 2:32 PM EDT 01/08/2025 2:32 PM EDT Luz Maria Washburn DO LAB BLOOD ORDERABLES Final R esult Performing Organization Address [facility] Co de Phone Number [facility] [address] [place] [phone] * TSH (01/08/2025 2:32 PM EDT) Thyroid Stimulating Hormone 0.78 0.32 - 4.0 uIU/mL [facility] Comment:TSH 3rd Generation ( [employer]) Blood Venous blood specimen / Unknown 01/08/2025 2:32 PM EDT 01/08/2025 2:32 PM EDT Luz Maria Washburn DO LAB BLOOD ORDERABLES Final R esult Performing Organization Address [facility] Co de Phone Number [facility] [address] [place] [phone] * T4, Free (01/08/2025 2:32 PM EDT) Free T4 (Free Thyroxine) 0.93 0.71 - 1.85 ng/dL [facility] Blood Venous blood specimen / Unknown 01/08/2025 2:32 PM EDT 01/08/2025 2:32 PM EDT Lzu Maria Washburn DO LAB BLOOD ORDERABLES Final R esult Performing Organization Address City/[facility] Co de Phone Number [facility] [address] [place] [phone] * Hemoglobin A1c (01/08/2025 2:32 PM EDT) Hemoglobin A1c 5.6 <6.0 % [facility] Comment:Hemoglobin A1C Refer ence Range Adults: 4.8 - 6.0 % Non diabetic: < 6.0 % Goal: < 7.0 %Additional Action Suggested: > 8.0 %Note: Hemoglobin A1c results are invalid for patients with abnormal amounts of HbF. Blood transfusions may impact the HbA1c concentration in the patient sample. Estimated Average Glucose 114 mg/dL [facility] Comment:eAG = Estimated ave rage glucose which is %A1C expressed asaverage glucose, using the formula of the N3M-AghnrtsSdlsrhn Glucose study (ADAG), Diabetes Care, Vol.31,#8,2007 Blood Venous blood specimen / Unknown 01/08/2025 2:32 PM EDT 01/08/2025 2:32 PM EDT us Luz Maria Washburn DO LAB BLOOD ORDERABLES Final R esult Performing Organization Address [facility] Co de Phone Number [facility] [address] [place] [phone] * (ABNORMAL) Hepatic Function Panel (01/08/2025 2:32 PM EDT) Bilirubin, Total 2.2(H) 0.0 - 1.0 mg/dL [facility] Comment:Slight Icterus. Bilirubin, Direct 0.5 0.0 - 0.5 mg/dL [facility] Comment:Slight Icterus. Aspartate Amino Transferase 26 5 - 37 U/L [facility] Alanine Aminotransferase 21 0 - 40 U/L [facility] Total Protein 7.3 6.5 - 8.0 g/dL [facility] Albumin Level 4.7 3.5 - 5.0 g/dL [facility] Alkaline Phosphatase 74 39 - 117 U/L [facility] Blood Venous blood specimen / Unknown 01/08/2025 2:32 PM EDT 01/08/2025 2:32 PM EDT Luz Maria Maddison [facility] LAB BLOOD ORDERABLES Final R esult Performing Organization Address City/[facility] Co de Phone Number [facility] [address] [place] [phone] * Lipid Panel, Standard (01/08/2025 2:32 PM EDT) Triglycerides 47 <150 mg/dL [facility] Comment:Desirable Triglyceri de: less than 150 mg/dLBorderline High Triglyceride 150-199 mg/dLHigh Triglyceride: 200-499 mg/dLVery High Triglyceride: greater than or equal to 5OO mg/dL Cholesterol 138 <200 mg/dL [facility] Comment:Desirable Cholestero l: less than 200 mg/dLBorderline High Cholesterol: 200-239 mg/dLHigh Cholesterol: greater than 239 mg/dL LDL Cholesterol Calculated 74 <100 mg/dL [facility] Comment:Desirable LDL: less than 100 mg/dLNear Optimal/Above Optimal LDL: 110- 129 mg/dLBorderline High LDL: 130-159 mg/dLHigh LDL: 160-189 mg/dLVery High LDL: greater than or equal to 190 mg/dL HDL Cholesterol 55 >40 mg/dL [facility] Comment:Desirable HDL: great er than 40 mg/dL Note: This HDL assay may give artificially low results in patients with liver disease. Blood Venous blood specimen / Unknown 01/08/2025 2:32 PM EDT 01/08/2025 2:32 PM EDT Luz Maria Washburn DO LAB BLOOD ORDERABLES Final R esult Performing Organization Address [facility]/ZIP Co de Phone Number [facility] [address] [place] [phone] * (ABNORMAL) Basic Metabolic Panel (01/08/2025 2:32 PM EDT) Sodium 144 135 - 145 mmol/L [facility] Potassium 3.6 3.3 - 5.1 mmol/L [facility] Chloride 108 96 - 108 mmol/L [facility] Carbon Dioxide 29 22 - 29 mmol/L [facility] Anion Gap 11(L) 12 - 20 [facility] Urea Nitrogen (BUN) 11 9 - 16 mg/dL [facility] Creatinine, Serum 0.83 0.5 - 1.4 mg/dL [facility] Estimated Glomerular Filt Rate >60 [facility] Comment:Chronic Kidney Disea se: Estimated GFR < 60 mL/min/1.16m3Pszhif Kidney Disease: Estimated GFR < 15 mL/min/1.73m2 Glucose 102 60 - 115 mg/dL [facility] Calcium 9.1 8.4 - 10.2 mg/dL [facility] Blood Venous blood specimen / Unknown 01/08/2025 2:32 PM EDT 01/08/2025 2:32 PM EDT us Luz Maria Washburn DO LAB BLOOD ORDERABLES Final R esult Performing Organization Address City/State/[facility] Co de Phone Number [facility] [address] [place] [phone] * Albumin, Random Urine W/Creatinine (01/08/2025 2:30 PM EDT) Creatinine, Urine 287.04 mg/dL [facility] Microalbumin Urine 22.0 mg/L [facility] Microalbum Creatinine Ratio Ur 7.6 <30 ug/mg cr [facility] Comment:Albumin/Creatinine R atio Reference Ranges: Normal: < 30 ug/mg creatinine Microalbuminuria: 30 - 300 ug/mg creatinineClinical Albuminuria: > 300 ug/mg creatinine Urine (Urine, Random) 01/08/2025 2:30 PM EDT 01/08/2025 2:52 PM EDT us Luz Maria Washburn DO LAB URINE ORDERABLES Final R esult [facility] [address] [place], [place] [phone] from Last 3 Months Insurance [facility] ONE CARE < 65 Care Teams Family Centered Specialist Relationship Specialty Start Date End Date Luz Maria Washburn DO [address] [place] [address] PCP - General Family Medicine 06/06/21
--- OUTSIDE RECORDS SUMMARY | 2025-03-14 01:57 | XMS_ITS | Encounter Summary ---
Author Organization [id number] Address [address] [place] [address] [address] [place] [address] Care Team Providers Care Software Firmware Engineer Name Role Phone Luz Maria Washburn DO Primary Care Provider + [phone] Reason for Visit * Reason Comments Med Change Request Encounter Details Date Type Department Care Team ([facility] Contact Info) Description 06/11/2022 Refill [facility] [address] [place], [place] [phone] Luz Maria Washburn DO [address] [place], [place] [phone] Asthma, unspecified asthma severity, unspecified whether complicated, [...] persistent documented in this encounter Care Teams Software Firmware Engineer Relationship Specialty Start Date End Date Luz Maria Washburn DO [address] [place], [place] [phone] PCP - General Family Medicine 06/06/21 documented as of this encounter
--- OUTSIDE RECORDS SUMMARY | 2025-03-14 01:57 | XMS_ITS | Encounter Summary ---
Author Organization [employer] Address [address] [facility] [address]t [place] [address] Care Team Providers Care Log Loader Name Role Phone Luz Maria Washburn DO Primary Care Provider + [phone] Reason for Visit * Reason Onset Date Comments Referral 06/25/2023 Encounter Details Date Type Department Care Team ([facility] Contact Info) Description 06/25/2023 Telephone [facility] [address] [place], [place] [phone] Luz Maria Washburn DO [address] [place], [place] [phone] Referral Social History Tobacco Use Types Packs/Day [...] 3:05 PM EDT Tc from Felicitas with [facility] requesting a call back in regards below message. Please contact Felicitas at [phone] * Telephone Encounter - Tessy Smith RN - 06/29/2023 3:27 PM EST Per Tawnya Rodrigez: Can I please get some assistance in getting number and fax. I have tried searching in [facility] and found nothing. Per [facility], phone number is [phone]. RN also called office and obtained fax number [phone]. * Telephone Encounter - Tessy Smith RN - 06/28/2023 10:42 AM EST Upon chart review, pt was referred to [facility] in [place] 03/22/2023. TC placed to pt [phone] in regards to below message. Pt reports he does NOT want to be seen at the chiropractic office in [place]. Pt reports he does not like the location. Pt would like to be referred to: [facility] [address] [place] [address] new referral to new location. Thank you! * Telephone Encounter - Chitra Resendez - 06/25/2023 3:21 PM EST TC from felicitas with [facility] states pt is requesting new referral DATE: n/a TIME: n/a Location: [address] [place] [address] Facility: [facility] Type of Specialist: Chiropractor DX: chronic back pain documented in this encounter Plan of Treatment Not on file documented as of this encounter Visit Diagnoses Not on filedocumented in this encounter Additional Health Concerns Assessment Noted Time PHQ-9 Depression Total Score: 2 03/22/20 23 10:33 AM EDT documented as of this encounter Care Teams Log Loader Relationship Specialty Start Date End Date Luz Maria Washburn DO [address] [place] [address] PCP - General Family Medicine 06/06/21 documented as of this encounter
--- OUTSIDE RECORDS SUMMARY | 2025-03-14 01:57 | XMS_ITS | Encounter Summary ---
Author Organization [employer] Address [address] [facility] [address]t [place] [address] Care Team Providers Care Adult Remedial Education Instructor Name Role Phone Luz Maria Washburn DO Primary Care Provider + [phone] Reason for Visit * Reason Onset Date Comments Appointment Request 06/25/2023 Encounter Details Date Type Department Care Team ([facility] Contact Info) Description 06/25/2023 Telephone [facility] [address] [place], [place] [phone] Luz Maria Washburn DO [address] [place], [place] [phone] Appointment Request Social History Tobacco Use Types [...] documented as of this encounter Care Teams Adult Remedial Education Instructor Relationship Specialty Start Date End Date Luz Maria Washburn DO [address] [place] [address] PCP - General Family Medicine 06/06/21 documented as of this encounter
[2025-03-14] MEDS: Diphth,Pertus(ACell),Tet Adult 0.5 ML SYRINGE IM (02:34)
[2025-03-14] MEDS: Lidocaine HCl 1 % MPF 5 ML VIAL INFILTRATI (02:35)
[2025-03-14 02:49] VITALS: BP 138/85; PULSE 85; RESP 16; TEMP 36.6; O2SAT 97
== END 2025-03-14 02:49 | disposition home or self-care (01) ==
PROVIDERS: Emergency Provider Emergency Medicine; PCP Family Medicine
DX: S61.012A Laceration without foreign body of left thumb without damage to nail, initial encounter (principal); M79.642 Pain in left hand; W45.8XXA Other foreign body or object entering through skin, initial encounter; Y93.9 Activity, unspecified; Y92.9 Unspecified place or not applicable; Y99.8 Other external cause status; Z23 Encounter for immunization
CPT/HCPCS: 12001; 90471; 90715; 99282; 99284; J2003

== ENCOUNTER 2025-03-23 10:56 | Day surgery (SDC) | payer MEDICARE, OTHER, SELFPAY ==
--- OUTSIDE RECORDS SUMMARY | 2025-02-23 12:44 | XMS_ITS | Encounter Summary ---
Author Organization [employer] Address [address] [place] [address] [address] [place] [address] Care Team Providers Care Vending Machine Mechanic Name Role Phone Luz Maria Washburn DO Primary Care Provider + [phone] Reason for Visit * Reason Comments Med Change Request Encounter Details Date Type Department Care Team ([facility] Contact Info) Description 06/11/2022 Refill [facility] [address] [place], [place] [phone] Luz Maria Washburn DO [address] [place], [place] [phone] Asthma, unspecified asthma severity, unspecified whether complicated, [...] persistent documented in this encounter Care Teams Vending Machine Mechanic Relationship Specialty Start Date End Date Luz Maria Washburn DO [address] [place], [place] [phone] PCP - General Family Medicine 06/06/21 documented as of this encounter
--- OUTSIDE RECORDS SUMMARY | 2025-02-23 12:44 | XMS_ITS | Encounter Summary ---
Author Organization [employer] Address [address] [facility] [address] [place] [address] Care Team Providers Care Activity Therapist Name Role Phone Luz Maria Washburn DO Primary Care Provider + [phone] Reason for Visit * Reason Onset Date Comments Referral 06/25/2023 Encounter Details Date Type Department Care Team ([facility] Contact Info) Description 06/25/2023 Telephone [facility] [address] [place], [place] [phone] Luz Maria Washburn DO [address] [place], [place] [phone] Referral Social History Tobacco Use Types Packs/Day [...] 3:05 PM EDT Tc from Felicitas with [facility] requesting a call back in regards below message. Please contact Felicitas at [phone] * Telephone Encounter - Tessy Smith RN - 06/29/2023 3:27 PM EST Per Tawnya Rodrigez: Can I please get some assistance in getting number and fax. I have tried searching in [employer] and found nothing. Per [employer], phone number is [phone]. RN also called office and obtained fax number [phone]. * Telephone Encounter - Tessy Smith RN - 06/28/2023 10:42 AM EST Upon chart review, pt was referred to [facility] in [place] 03/22/2023. TC placed to pt [phone] in regards to below message. Pt reports he does NOT want to be seen at the chiropractic office in [place]. Pt reports he does not like the location. Pt would like to be referred to: [facility] [address] [place] [address] new referral to new location. Thank you! * Telephone Encounter - Chitra Resendez - 06/25/2023 3:21 PM EST TC from felicitas with [facility] states pt is requesting new referral DATE: n/a TIME: n/a Location: [address] [place] [address] Facility: [facility] Type of Specialist: Chiropractor DX: chronic back pain documented in this encounter Plan of Treatment Not on file documented as of this encounter Visit Diagnoses Not on filedocumented in this encounter Additional Health Concerns Assessment Noted Time PHQ-9 Depression Total Score: 2 03/22/20 23 10:33 AM EDT documented as of this encounter Care Teams Activity Therapist Relationship Specialty Start Date End Date Luz Maria Washburn DO [address] [place] [phone] PCP - General Family Medicine 06/06/21 documented as of this encounter
--- OUTSIDE RECORDS SUMMARY | 2025-02-23 12:44 | XMS_ITS | Encounter Summary ---
Author Organization [employer] Address [address] [facility] [address] [place] [address] Care Team Providers Care Tree Thinner Name Role Phone Luz Maria Washburn DO Primary Care Provider + [phone] Reason for Visit * Reason Onset Date Comments Appointment Request 06/25/2023 Encounter Details Date Type Department Care Team ([facility] Contact Info) Description 06/25/2023 Telephone [facility] [address] [place], [place] [phone] Luz Maria Washburn DO [address] [place], [place] [phone] Appointment Request Social History Tobacco Use Types [...] documented as of this encounter Care Teams Tree Thinner Relationship Specialty Start Date End Date Luz Maria Washburn DO [address] [place] [address] PCP - General Family Medicine 06/06/21 documented as of this encounter
--- OUTSIDE RECORDS SUMMARY | 2025-02-23 12:44 | XMS_ITS | Clinical Summary ---
Author Organization [employer] Address [address] [facility] [address] [place] [address] Care Team Providers Care Bail Agent Name Role Phone CheikhLuz Maria white Primary Care Provider + [phone] Allergies Active Allergy Reactions Criticality Noted Date [...] -referral placed to Neurology 03/09/24 -referred to [facility] 03/09/24 -given work note. [...] Description 02/02/2025 2:20 PM EDT Office Visit [facility] [address] [place] [phone] Courtney Pinto NP Allergic reaction, initial encounter (Primary Dx) 02/02/2025 Travel 01/09/[address] [phone] Luz Maria Washburn DO Lab Add On 12/12/[address] [address] Luz Maria Washburn DO Durable Medical Equipment ([facility] One Care: Nebulizer.) 12/06/2024 10:45 AM EDT Office Visit [address] [address] Luz Maria Washburn DO Essential hypertension (Primary Dx); Chronic migraine; Mild intermittent asthma without complication; Chronic gastroesophageal reflux disease; Healthcare maintenance; Other migraine without status migrainosus, not intractable 12/06/2024 Travel 11/29/[address] [address] Luz Maria Washburn DO Chart Prep 11/27/2024 Patient Outreach [address] [phone] Luz Maria Washburn DO Pre-visit Planning ((Unable [...] Vitamin D 25-OH Total 25.1(L) >30 ng/mL [facility] Comment: Health Based Reference Values*< 20 ng/mL [id number] ng/mL Insufficient> 30 ng/mL Sufficient*Olivia STOREY. N [...] DO LAB BLOOD ORDERABLES Final R esult [facility] [address] [place] [phone] * (ABNORMAL) CBC auto differential (01/08/2025 2:32 PM EDT) Neutrophils Percent Auto 65.3 45 - 73 % [facility] Imm Gran Pct Auto 0.5(H) 0.0 - 0.4 % [facility] Lymphocytes Percent Auto 24.0 20 - 40 % [facility] Monocytes Percent Auto 6.8 2 - 11 % [facility] Eosinophils Percent Auto 2.6 0 - 4 % [facility] Basophils Percent Auto 0.8 0 - 2 % [facility] Neutrophils Absolute Auto 2.5 2.0 - 8.3 x10*3/uL [facility] Imm Gran Abs Auto 0.02 0.00 - 0.03 X10*3/uL [facility] Lymphocytes Absolute Auto 0.9(L) 1.2 - 4.9 X10*3/uL [facility] Monocytes Absolute Auto 0.3 0.1 - 1.2 X10*3/uL [facility] Eosinophils Absolute Auto 0.1 0.0 - 0.4 X10*3/uL [facility] Basophils Absolute Auto 0.0 0.0 - 0.2 X10*3/uL [facility] Blood Venous blood specimen / Unknown 01/08/2025 2:32 PM EDT 01/08/2025 2:32 PM EDT Luz Maria Washburn DO LAB BLOOD ORDERABLES Final R esult Performing Organization Address City/[facility]/ZIP Co de Phone Number [facility] [address] [place] [address] [phone] * Hepatitis C Antibody with Reflex to HCV, RNA, Quantitative, Real-Time PCR (01/08/2025 2:32 PM EDT) Hepatitis C Antibody Nonreactive Nonreactive [facility] Comment:Antibodies to HCV no t detected; does not exclude early acuteHCV infection. Blood Venous blood specimen / Unknown 01/08/2025 2:32 PM EDT 01/08/2025 2:32 PM EDT Luz Maria Washburn LAB BLOOD ORDERABLES Final R esult Performing Organization Address [facility]/ZIP Co de Phone Number [facility] [address] [place] [phone] * Hepatitis A Antibody, Total (01/08/2025 2:32 PM EDT) Hepatitis A Antibody IgG Nonreactive Nonreactive [facility] Blood Venous blood specimen / Unknown 01/08/2025 2:32 PM EDT 01/08/2025 2:32 PM EDT Luz Maria Washburn LAB BLOOD ORDERABLES Final R esult Performing Organization Address [facility] Co de Phone Number [facility] [address] [place] [address] [phone] * Hepatitis B surface antigen, EIA (01/08/2025 2:32 PM EDT) Hepatitis B Surface Ag Negative Negative [facility] Blood Venous blood specimen / Unknown 01/08/2025 2:32 PM EDT 01/08/2025 2:32 PM EDT Luz Maria Washburn DO LAB BLOOD ORDERABLES Final R esult Performing Organization Address City/[facility]/ZIP Co de Phone Number [facility] [address] [place] [phone] * Hepatitis B Core Antibody, Total (01/08/2025 2:32 PM EDT) Hepatitis B Core Antibody Nonreactive Nonreactive [facility] Blood Venous blood specimen / Unknown 01/08/2025 2:32 PM EDT 01/08/2025 2:32 PM EDT Luz Maria Washburn DO LAB BLOOD ORDERABLES Final R esult Performing Organization Address [facility] Co de Phone Number [facility] [address] [place] [phone] * RPR (Monitor) with Reflex to??Titer (01/08/2025 2:32 PM EDT) RPR (Monitor) w/Refl Titer NON-REACTI VE NON-REACT ROSMERY [facility] Comment:THIS TEST WAS PERFOR MED AT:[employer] [place] [phone] PETERS MD Rapid Plasma Reagin Ab Titer TNP [facility] Blood Venous blood specimen / Unknown 01/08/2025 2:32 PM EDT 01/08/2025 2:32 PM EDT Luz Maria Washburn DO LAB BLOOD ORDERABLES Final R esult Performing Organization Address [facility]/ZIP Co de Phone Number [facility] [address] [place] [phone] * HIV-1/2 Antigen and Antibodies, Fourth Generation, with Reflexes (01/08/2025 2:32 PM EDT) [facility] HIV AB/AG Nonreactive Nonreactive [facility] Comment:HIV-1 p24 Ag and/or HIV-1/HIV-2 Ab not detected.A test result that is nonreactive does not exclude thepossibility of exposure to or infection with HIV-1 and/orHIV-2. Nonreactive results in this assay for individualswith prior exposure to HIV-1 and/or HIV-2 may be due toantigen and antibody levels that are below the limit ofdetection of this assay.The [employer] HIV Ag/Ab Combo assay result andsupplemental assay results should be interpreted inconjunction with the patient's clinical presentation,history and other laboratory results. If the results areinconsistent with clinical evidence, additional testing issuggested to confirm the result. Blood Venous blood specimen / Unknown 01/08/2025 2:32 PM EDT 01/08/2025 2:32 PM EDT Luz Maria Washburn MICMALI LAB BLOOD ORDERABLES Final R esult Performing Organization Address City/[facility]/ZIP Co de Phone Number [facility] [address] [place] [address] [phone] * Hepatitis B Surface Antibody, Qualitative (01/08/2025 2:32 PM EDT) [facility] ~Hepatitis B Surface Antibody NONREACTIVE Nonreactive [facility] Comment:Nonreactive: < 8.00 mIU/mL Blood Venous blood specimen / Unknown 01/08/2025 2:32 PM EDT 01/08/2025 2:32 PM EDT Luz Maria Washburn MICMALI LAB BLOOD ORDERABLES Final R esult Performing Organization Address [facility] Co de Phone Number [facility] [address] [place] [phone] * (ABNORMAL) CBC (01/08/2025 2:32 PM EDT) [facility] White Blood Count 3.9(L) 4.8 - 10.8 X10*3/uL [facility] Red Blood Count 4.88 4.60 - 5.80 X10*6/uL [facility] Hemoglobin 15.1 14.0 - 18.0 g/dl [facility] Hematocrit 43.0 42.0 - 52.0 % [facility] Mean Corpuscular Volume 88.1 80.0 - 98.0 fL [facility] Mean Corpuscular Hemoglobin 30.9 27.0 - 33.0 pg [facility] Mean Corpuscular HGB Conc 35.1 31.0 - 36.0 g/dl [facility] Red Cell Distribution Width 12.6 11.0 - 16.0 % [facility] Platelet Count 187 160 - 400 X10*3/uL [facility] Mean Platelet Volume 9.1(L) 9.4 - 12.4 fL [facility] NRBC Pct Auto 0.0 0.0 - 0.2 /100WBC [facility] NRBC Abs Auto 0.000 0.0 - 0.012 X10*3/uL [facility] Blood Venous blood specimen / Unknown 01/08/2025 2:32 PM EDT 01/08/2025 2:32 PM EDT Luz Maria Washburn DO LAB BLOOD ORDERABLES Final R esult [facility] [address] [place] [phone] * TSH (01/08/2025 2:32 PM EDT) Thyroid Stimulating Hormone 0.78 0.32 - 4.0 uIU/mL [facility] Comment:TSH 3rd Generation ( [facility]) Blood Venous blood specimen / Unknown 01/08/2025 2:32 PM EDT 01/08/2025 2:32 PM EDT Luz Maria Washburn DO LAB BLOOD ORDERABLES Final R esult Performing Organization Address [facility]/ZIP Co de Phone Number [facility] [address] [place] [phone] * T4, Free (01/08/2025 2:32 PM EDT) Free T4 (Free Thyroxine) 0.93 0.71 - 1.85 ng/dL [facility] Blood Venous blood specimen / Unknown 01/08/2025 2:32 PM EDT 01/08/2025 2:32 PM EDT Luz Maria Washburn MICMALI LAB BLOOD ORDERABLES Final R esult Performing Organization Address [facility] Co de Phone Number [facility] [address] [place] [phone] * Hemoglobin A1c (01/08/2025 2:32 PM EDT) Pathologist [facility] Hemoglobin A1c 5.6 <6.0 % [facility] Comment:Hemoglobin A1C Refer ence Range Adults: 4.8 - 6.0 % Non diabetic: < 6.0 % Goal: < 7.0 %Additional Action Suggested: > 8.0 %Note: Hemoglobin A1c results are invalid for patients with abnormal amounts of HbF. Blood transfusions may impact the HbA1c concentration in the patient sample. Estimated Average Glucose 114 mg/dL [facility] Comment:eAG = Estimated ave rage glucose which is %A1C expressed asaverage glucose, using the formula of the P5Y-JnnfmntVkthlpu Glucose study (ADAG), Diabetes Care, Vol.31,#8,Dec. 2007 Blood Venous blood specimen / Unknown 01/08/2025 2:32 PM EDT 01/08/2025 2:32 PM EDT Luz Maria Washburn MICMALI LAB BLOOD ORDERABLES Final R esult Performing Organization Address [facility] Co de Phone Number [facility] [address] [place] [phone] * (ABNORMAL) Hepatic Function Panel (01/08/2025 2:32 PM EDT) Bilirubin, Total 2.2(H) 0.0 - 1.0 mg/dL [facility] Comment:Slight Icterus. Bilirubin, Direct 0.5 0.0 - 0.5 mg/dL [facility] Comment:Slight Icterus. Aspartate Amino Transferase 26 5 - 37 U/L [facility] Alanine Aminotransferase 21 0 - 40 U/L [facility] Total Protein 7.3 6.5 - 8.0 g/dL [facility] Albumin Level 4.7 3.5 - 5.0 g/dL [facility] Alkaline Phosphatase 74 39 - 117 U/L [facility] Blood Venous blood specimen / Unknown 01/08/2025 2:32 PM EDT 01/08/2025 2:32 PM EDT us Luz Maria Washburn DO LAB BLOOD ORDERABLES Final R esult [facility] [address] [place] [phone] * Lipid Panel, Standard (01/08/2025 2:32 PM EDT) Triglycerides 47 <150 mg/dL [facility] Comment:Desirable Triglyceri de: less than 150 mg/dLBorderline High Triglyceride 150-199 mg/dLHigh Triglyceride: 200-499 mg/dLVery High Triglyceride: greater than or equal to 5OO mg/dL Cholesterol 138 <200 mg/dL [facility] Comment:Desirable Cholestero l: less than 200 mg/dLBorderline High Cholesterol: 200-239 mg/dLHigh Cholesterol: greater than 239 mg/dL LDL Cholesterol Calculated 74 <100 mg/dL [facility] Comment:Desirable LDL: less than 100 mg/dLNear Optimal/Above Optimal LDL: 110- 129 mg/dLBorderline High LDL: 130-159 mg/dLHigh LDL: 160-189 mg/dLVery High LDL: greater than or equal to 190 mg/dL HDL Cholesterol 55 >40 mg/dL [facility] Comment:Desirable HDL: great er than 40 mg/dL Note: This HDL assay may give artificially low results in patients with liver disease. Blood Venous blood specimen / Unknown 01/08/2025 2:32 PM EDT 01/08/2025 2:32 PM EDT Luz Maria Washburn DO LAB BLOOD ORDERABLES Final R esult Performing Organization Address City/[facility] Co de Phone Number [facility] [address] [place] [phone] * (ABNORMAL) Basic Metabolic Panel (01/08/2025 2:32 PM EDT) Sodium 144 135 - 145 mmol/L [facility] Potassium 3.6 3.3 - 5.1 mmol/L [facility] Chloride 108 96 - 108 mmol/L [facility] Carbon Dioxide 29 22 - 29 mmol/L [facility] Anion Gap 11(L) 12 - 20 [facility] Urea Nitrogen (BUN) 11 9 - 16 mg/dL [facility] Creatinine, Serum 0.83 0.5 - 1.4 mg/dL [facility] Estimated Glomerular Filt Rate >60 [facility] Comment:Chronic Kidney Disea se: Estimated GFR < 60 mL/min/1.21e1Wvrkic Kidney Disease: Estimated GFR < 15 mL/min/1.73m2 Glucose 102 60 - 115 mg/dL [facility] Calcium 9.1 8.4 - 10.2 mg/dL [facility] Blood Venous blood specimen / Unknown 01/08/2025 2:32 PM EDT 01/08/2025 2:32 PM EDT Luz Maria Washburn DO LAB BLOOD ORDERABLES Final R esult Performing Organization Address [facility] Co de Phone Number [facility] [address] [place] [phone] [phone] * Albumin, Random Urine W/Creatinine (01/08/2025 2:30 PM EDT) Creatinine, Urine 287.04 mg/dL [facility] Microalbumin Urine 22.0 mg/L [facility] Microalbum Creatinine Ratio Ur 7.6 <30 ug/mg cr [facility] Comment:Albumin/Creatinine R atio Reference Ranges: Normal: < 30 ug/mg creatinine Microalbuminuria: 30 - 300 ug/mg creatinineClinical Albuminuria: > 300 ug/mg creatinine Urine (Urine, Random) 01/08/2025 2:30 PM EDT 01/08/2025 2:52 PM EDT us Luz Maria Washburn DO LAB URINE ORDERABLES Final R esult [facility] [address] [place] [phone] from Last 3 Months Insurance [facility] < [address] [id number] Care Teams Bail Agent Relationship Specialty Start Date End Date Luz Maria Washburn DO [address] [place] [phone] PCP - General Family Medicine 06/06/21
--- NOTE | 2025-03-21 10:57 | HO.ANESPROP2 ---
Documented by User: Angeli Flores NP 03/21/25 11:01 HPI - Anesthesia Eval Consult details Narrative: 44 yr old male for Upper Endoscopy and Colonoscopy Aneurysm popliteal artery: [facility] [place]23 for review of imaging, findings as stated: CT angiogram dated 07/29/2023 demonstrates bilateral normal runoff. No significant findings in the left popliteal fossa. Was told he could have varicose veins and restless legs treated. Mild persistent asthma PMFSH Active Problems Active Problems: All Active Problems (Updated 03/15/25 @ 00:00 by Background Daemon) Worsening headaches (Acute) Trigger point of shoulder region (Acute) Myofascial pain (Acute) Chronic migraine without aura without status migrainosus, not intractable (Acute) Dysphagia, pharyngoesophageal phase (Acute) Aneurysm of left popliteal artery (Acute) Cramping of hands (Acute) Spasms of the hands or feet (Acute) Carpal tunnel syndrome of right wrist (Acute) Restless leg syndrome (Acute) Varicose veins of left lower extremity with inflammation (Acute) Change in bowel function (Acute) IBS (irritable bowel syndrome) (Acute) Acid reflux (Acute) LLQ pain (Acute) Past Medical History Medical History (Updated 03/15/25 @ 00:00 by Background Daemon) Migraine Aneurysm artery, popliteal Asthma Surgical History Surgical History (Updated 03/23/25 @ 12:03 by Brooke Patterson RN) History of surgery History of hernia surgery Social History Social History Household Members: Family Alcohol intake: never Patient Tobacco Use Status: Former Tobacco user Use of substances other than those prescribed or required for medical reasons: No Are you DNR?: No Advance Directives: No Advance Directives Information Provided: Yes Current occupational status: employed 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 Meds Allergies Allergy/AdvReac Type Severity Reaction Status Date / Time penicillin G Allergy Severe Shortness Verified 03/23/25 12:06 of Breath Penicillins (PENICILLINS) Allergy Severe Shortness Verified 03/23/25 12:06 of Breath Home Medications ?Medication ?Instructions ?Recorded ?Confirmed ?Last Taken ?Type pantoprazole 20 mg tablet,delayed 20 mg PO DAILY 03/24/23 03/23/25 03/23/25 History release amlodipine 5 mg tablet 5 mg PO DAILY 02/19/25 03/23/25 03/23/25 History dicyclomine 10 mg capsule 10 mg PO QID 02/26/25 03/21/25 Unknown History Documented by User: Eryn Tamez MD 03/23/25 12:18 [facility] Past Medical History Medical History (Updated 03/15/25 @ 00:00 by Sebastián Mario) Migraine Aneurysm artery, popliteal Asthma Family History Family history of problems with anesthesia: No Surgical History Surgical History (Updated 03/23/25 @ 12:03 by Brooke Patterson RN) History of surgery History of hernia surgery History of Problems with Anesthesia: No Social History Social History Household Members: Family Alcohol intake: never Patient Tobacco Use Status: Former Tobacco user Use of substances other than those prescribed or required for medical reasons: No Are you DNR?: No Advance Directives: No Advance Directives Information Provided: Yes Current occupational status: employed 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 Meds Allergies Allergy/AdvReac Type Severity Reaction Status Date / Time penicillin G Allergy Severe Shortness Verified 03/23/25 12:06 of Breath Penicillins (PENICILLINS) Allergy Severe Shortness Verified 03/23/25 12:06 of Breath Home Medications ?Medication ?Instructions ?Recorded ?Confirmed ?Last Taken ?Type pantoprazole 20 mg tablet,delayed 20 mg PO DAILY 03/24/23 03/23/25 03/23/25 History release amlodipine 5 mg tablet 5 mg PO DAILY 02/19/25 03/23/25 03/23/25 History dicyclomine 10 mg capsule 10 mg PO QID 02/26/25 03/21/25 Unknown History Exam Airway Mallampati Class: II TM Dist: >3cm Neck ROM: Full Heart: rrr Lungs: cta Assessment and Plan Assessment Anesthesia Assessment: Anesthesia Plan Discussed and Chart Reviewed Final Anesthetic Review Family History of Problems with Anesthesia: No History of Problems with Anesthesia: No NPO: Yes ASA Class: II Final Preanesthetic Review: No Changes in Pt Med Stat, Meds/Allgs Chart Reviewed and Consent Obtained/Reviewed Patient Risk: Intermediate Procedure Risk: Intermediate Anesthetic Plan Anesthetic Plan: MAC: Disposition: Standard PACU
[2025-03-21 13:54] VITALS: BMI 20.5
[2025-03-23 12:11] VITALS: BMI 23.8
[2025-03-23 12:17] VITALS: BP 125/82; PULSE 79; RESP 16; TEMP 36.7; O2SAT 98
--- NOTE | 2025-03-23 12:21 | MHC.SHP ---
Pre-Procedural Eval Section A - 24 Hr Update-Section A only Date of Service: 03/23/25 The patient is an INPATIENT: No The patient has been examined within 24 hours of the surgical procedure. The History & Physical has been completed within 30 days and I have reviewed it.: No Section B - Complete if H&P > 30 days Chief Complaint: IBS, abd pain, dysphagia, gerd, Relevant Family History (Specify if Yes): No Relevant Social History: Tobacco Use (Former smoker) Present Medications: see Short Stay Collaborative assessment Medical History: Significant History (Migraine Aneurysm artery, popliteal Asthma) History of Previous Operations: Relevant previous surgery/procedure and date(s) (History of hernia surgery) Allergies: Allergies Allergy/AdvReac Type Severity Reaction Status Date / Time penicillin G Allergy Severe Shortness Verified 03/23/25 12:06 of Breath Penicillins (PENICILLINS) Allergy Severe Shortness Verified 03/23/25 12:06 of Breath Review of Systems Sugical H&P ROS: Negative: Constitution, Cardiovascular, Respiratory and Gastrointestinal Exam Surgical H&P Exam: Normal: Heart, Normal: Lungs, Normal: Extremities and Normal: Abdomen Plan Diagnosis/Plan: Unchanged I have reviewed the history and physical and performed a pertinent physical examination on my patient. No changes have occurred unless specified. Time Spent With Patient Time: Total time managing care of this patient today ____ minutes.
[2025-03-23] MEDS: Lactated Ringers 1,000 ML 100 ML IVCONT (12:40)
--- NOTE | 2025-03-23 13:53 | P.OPN-COLO_ITS ---
Colonoscopy Operative Note Operative Note Date of Service: 03/23/25 Narrative: FLEXIBLE TRANSORAL UPPER GASTROINTESTINAL ENDOSCOPY WITH BIOPSIES AND ESOPHAGEAL BALLOON DILATION AND COLONOSCOPY TILL CECUM WITH BIOPSIES AND SNARE POLYPECTOMY Pre-op diagnosis: GERD, dysphagia, abdominal pain, IBS with diarrhea Post-op diagnosis: GERD, Gastritis, Colon Polyps, Diverticulosis, hemorrhoids Endoscopist:? Grace Sim MD Anesthesia:?MAC UPPER ENDOSCOPY Consent: Indications for the procedure and potential complications of bleeding, perforation, reaction to medications and missed diagnosis were discussed with the patient and informed consent was obtained. Instrument: Olympus GIF H 190 mid size upper endoscope Monitoring: Vital signs and clinical assessment, continuous EKG monitoring, Pulse oximetry, Carbon Dioxide monitoring and blood pressure monitoring were done throughout the procedure. Procedure: The patient was placed in the left lateral decubitis position and pre-procedure medications were administered and a bite block was placed. The endoscope was inserted into the mouth and advanced under direct vision to the third part of duodenum. A careful inspection was made as the upper endoscope was withdrawn including a retroflexed examination of the proximal stomach; Findings and interventions are described below. Findings: Larynx: Normal Esophagus: GE junction at 42 cms. No esophagitis or Mohamud's. Empiric balloon dilation with performed with a 20 mm (60 F) Biopsies were obtained from proximal, middle and distal esophagus to check for EOE Stomach: Moderate antral erythema - biopsies were obtained. Grade 2 flap valve on retroflexed examination of the cardia. Duodenum: Normal bulb and descending duodenum Biopsies were obtained from descending duodenum to check for celiac sprue Intervention: Biopsies as noted above COLONOSCOPY PROCEDURE NOTE Instrument: Olympus CF H 190 L variable stiffness adult colonoscope Monitoring: Vital signs and clinical assessment, intermittent blood pressure monitoring, continuous EKG monitoring, Pulse oximetry and Carbon Dioxide monitoring were done throughout the procedure. Please see anesthesia flowsheet. Colon withdrawl time was 26 minutes. Procedure: The patient was placed in the left lateral decubitis position and pre-procedure medications were administered. After a digital rectal examination of the ano-rectum, the video colonoscope was inserted into the rectum and advanced through the colon to the cecum. The colonoscope was slowly withdrawn in a retrograde panoramic fashion and the colon mucosa was carefully examined including a retroflexed view of the rectum. Findings and interventions are described below. Procedure Difficulty: Colon was long and tortuous and there was spasm and some loop formation. Findings: Terminal Ileum: Not evaluated Cecum: Normal Ascending Colon: Normal Transverse Colon: Normal Descending Colon: Moderate diverticulosis Sigmoid Colon: A 7-8 mm sessile polyp - removed with a hot snare. Moderate diverticulosis Rectum: Normal Ano-rectum: Moderate internal hemorrhoids Colon preparation: Good Fair after despite copious irrigation. There was some adherent stool throughout the colon which could not be flushed. No large lesions were seen and smaller polyps could be missed please [place] Bowel Preparation Scale Right colon; 2 Transverse colon: 2 Left colon; 2 (0 = Unprepared colon segment with mucosa not seen due to solid stool that cannot be cleared. 1 = Portion of mucosa of the colon segment seen, but other areas of the colon segment not well seen due to staining, residual stool and/or opaque liquid. 2 = Minor amount of residual staining, small fragments of stool and/or opaque l iquid, but mucosa of colon segment seen well. 3 = Entire mucosa of colon segment seen well with no residual staining, small fragments of stool or opaque liquid) Impression and Post Procedure Diagnosis: Endoscopy Findings: ESOPHAGUS: Empiric balloon dilation with performed with a 20 mm (60 F) Biopsies were obtained from proximal, middle and distal esophagus to check for EOE STOMACH: Mild antral gastritis DUODENUM: Normal - biopsied to check for celiac sprue. Colonoscopy Findings: One small polyps was removed Moderate diverticulosis seen in the left colon Moderate hemorrhoids on retroflexed exam. Plan: Pt has a FU appointment on 06/18/[address] Sim Repeat Colonoscopy in 5 years if polyps are adenomatous and due to suboptimal prep (needs extended prep with dulcolax 10 mg daily x 5 days prior to colonoscopy appointment) A summary of above findings and relevant handouts were given to the patient. BIOPSIES SHOWED: A. Small bowel, biopsy: Small bowel mucosa within normal limits; preserved villous architecture and no Increased intraepithelial lymphocytes seen. B. Stomach, antrum, biopsy: Gastric antral mucosa within normal limits; negative for Helicobacter pylori, intestinal metaplasia and dysplasia. C. Esophagus, distal, biopsy: Squamous mucosa within normal limits; negative for inflammation (including intraepithelial eosinophils), fungal organisms, intestinal metaplasia and dysplasia. D. Esophagus, mid, biopsy: Squamous mucosa within normal limits; negative for inflammation (including intraepithelial eosinophils), fungal organisms, intestinal metaplasia and dysplasia. E. Esophagus, proximal, biopsy: Squamous mucosa within normal limits; negative for inflammation (including intraepithelial eosinophils), fungal organisms, intestinal metaplasia and dysplasia. F. Colon, right, biopsy: Colonic mucosa within normal limits; negative for active, chronic or microscopic colitis. G. Colon, left, biopsy: Colonic mucosa within normal limits; negative for active, chronic or microscopic colitis. H. Colon, sigmoid, polypectomy: Clinically polypoid colonic mucosa noted; negative for a hyperplastic or neoplastic process Letter sent with biopsy results. Patient was placed on the colonoscopy recall list for repeat colonoscopy in 5 years.
[2025-03-23 14:41] VITALS: BP 99/59; PULSE 75; RESP 16; TEMP 36.4; O2SAT 95
[2025-03-23 14:56] VITALS: BP 105/73; PULSE 58; RESP 16; O2SAT 96
[2025-03-23 15:11] VITALS: BP 113/77; PULSE 73; RESP 16; TEMP 36.4; O2SAT 98
== END 2025-03-23 15:20 | disposition home or self-care (01) ==
PROVIDERS: PCP Family Medicine; Visit Provider Internal Medicine Gastroenterology
PROC: (CPT 45385; principal; 2025-03-23 12:50)
DX: K21.9 Gastro-esophageal reflux disease without esophagitis (principal); K58.9 Irritable bowel syndrome, unspecified; R19.8 Other specified symptoms and signs involving the digestive system and abdomen; R10.32 Left lower quadrant pain; R13.14 Dysphagia, pharyngoesophageal phase; K29.70 Gastritis, unspecified, without bleeding; K64.8 Other hemorrhoids; K57.30 Diverticulosis of large intestine without perforation or abscess without bleeding
CPT/HCPCS: 45385; 43239; 43249; 88305; 88313; 88342; C1726; J2003; J2704

== ENCOUNTER → 2025-03-23 10:56 | Outpatient (BNV) | payer MEDICARE, SELFPAY | PROVIDERS: PCP Family Medicine; Visit Provider Internal Medicine Gastroenterology | DX: K58.0 Irritable bowel syndrome with diarrhea (principal); K63.5 Polyp of colon; K57.90 Diverticulosis of intestine, part unspecified, without perforation or abscess without bleeding; K64.8 Other hemorrhoids; R13.10 Dysphagia, unspecified; K21.9 Gastro-esophageal reflux disease without esophagitis; K29.70 Gastritis, unspecified, without bleeding | CPT/HCPCS: 43239; 43249; 45385 ==